=== PATIENT | female | born 1945 | race Caucasian/White ===

== ENCOUNTER 2018-11-26 11:18 | Inpatient (IN) ==
[2018-11-26 11:50] LABS: Basophils # (auto) 0.04 K/uL (0-0.2); Basophils % (auto) 0.4 %; Eosinophils # (auto) 0.48 K/uL (0-0.5); Hemoglobin 15.2 g/dL (12.0-16.0); Immature Granulocytes # (auto) 0.01 K/uL (0.00-0.02); Immature Granulocytes % (auto) 0.1 %; Lymphocytes # (auto) 2.13 K/uL (1.2-3.4); Lymphocytes % (auto) 22.2 %; Mean Corpuscular Hgb Conc 33.8 g/dL (32-36); Mean Corpuscular Volume 96.2 fL (80-100); Mean Platelet Volume 11.7 fL (7.4-10.4); Monocytes # (auto) 0.54 K/uL (0.11-0.59); Monocytes % (auto) 5.6 %; Neutrophils # (auto) 6.39 K/uL (1.4-6.5); Neutrophils % (auto) 66.7 %; Platelet Count 210 K/uL (130-400); RDW Standard Deviation 52.4 fL (36.4-46.3); Red Blood Count 4.68 M/uL (4.2-5.4); White Blood Count 9.59 K/uL (4.8-10.8)
[2018-11-26 11:55] LABS: iSTAT Creatinine 0.7 mg/dl (0.6-1.3); iSTAT Hemoglobin 15.3 g/dl (12.0-16.0); iSTAT Ionized Calcium 1.12 mmol/l (1.12-1.32); iSTAT Potassium 4.5 mEq/L (3.3-5.0)
--- NOTE | 2018-11-26 11:56 | XRay Report ---
XR chest 1V portable HISTORY: 73 years-old Female weakness acute weakness COMPARISON: Chest radiograph 11/11/2013 TECHNIQUE: Portable AP view of the chest FINDINGS: Cardiac silhouette is enlarged, unchanged. Calcification the thoracic aortic arch. Mediastinal contou rs are within normal limits. There is mild right hemidiaphragm elevation. Mild blunting of the costop hrenic angles with subsegmental left basilar opacities. No pneumothorax or overt pulmonary edema. Deg enerative changes of the left shoulder and spine. Reverse right shoulder total joint arthroplasty. Po stoperative changes of the distal right clavicle. IMPRESSION: 1. Cardiomegaly without overt pulmonary edema. 2. Trace pleural effusions. 3. Subsegmental left basilar opacities suggestive of atelectasis or pneumonitis. 4. Unchanged mild right hemidiaphragmatic elevation. The above report was generated using voice recognition software. It may contain grammatical, syntax o r spelling errors. Electronically signed by: Connor Ross M.D. 11/26/2018 11:55 AM
[2018-11-26 12:00] LABS: Partial Thromboplastin Ratio 0.8; Partial Thromboplastin Time 21.2 Seconds (21.0-31.0); Prothrombin Time 10.5 Seconds (9.0-12.0)
[2018-11-26] MEDS ORDERED: OPTIRAY 320 125ml IV PRN (12:03)
[2018-11-26 12:07] LABS: Alanine Aminotransferase 17 U/L (12-78); Albumin Level 3.1 gm/dl (3.4-5.0); BUN Creatinine Ratio 16.3 (10-20); Blood Urea Nitrogen 12 mg/dl (7-18); Calcium 9.4 mg/dl (8.5-10.1); Carbon Dioxide 29 mmol/L (21-32); Chloride 104 mmol/L (98-107); Creatinine Clr Calc Pharmacy 78.7 ml/min; Est GFR (African American) 90.2; Est GFR (Non-African American) 77.8; Glucose 160 mg/dl (70-99); Magnesium 1.6 mg/dl (1.8-2.4); Sodium 140 mmol/L (136-145)
[2018-11-26 12:11] LABS: Albumin Globulin Ratio 0.8 (0.9-2); Alkaline Phosphatase 63 U/L (45-117); Aspartate Aminotransferase 15 U/L (15-37); Bilirubin,Total 0.6 mg/dl (0.2-1); Globulin 3.7 gm/dl (2.5-4.0); Total Protein 6.8 gm/dl (6.4-8.2); Troponin I < 0.015 ng/ml (0-0.045)
--- NOTE | 2018-11-26 12:42 | CT Scan Report ---
HEAD & NECK CTA HISTORY: stroke, L weak TECHNIQUE: Multiaxial CT images of the head were performed both before and after the intravenous admi nistration of contrast to evaluate the major cerebral vessels. Multiaxial CT images of the neck were also performed following the intravenous administration of contrast to evaluate the major cervical ve ssels. Maximum intensity projection images were also obtained. A dose lowering technique was utilized adhering to the principles of ALARA. COMPARISON: Brain MRI 01/08/2016. FINDINGS: There is a 1 cm hypodensity within the right thalamus. This likely represents an acute infarct. Visua lized intracranial internal carotid arteries, distal vertebral arteries, and basilar artery are widel y patent. 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 The major dural venous sinuses are patent. The aortic arch and proximal great vessels are widely patent. There is no significant stenosis, occ lusion, or dissection identified within the bilateral common carotid, internal carotid, or vertebral arteries. A 3 mm nodule within the left lung apex on image 46. There is also a 4 mm nodular density w ithin the left lung apex on image 55. Multinodular thyroid gland. Dominant nodule within the right lo wer pole measures 2.4 cm. Mild calcified plaque within the bilateral carotid bifurcations. IMPRESSION: 1. Acute right thalamic infarct. However, no significant stenosis, occlusion, or aneurysm within the [place]. 2. No significant stenosis, occlusion, or dissection identified within the carotid or vertebral arter ies. 3. A total of 2 subcentimeter nodules within the left lung apex with the largest measuring 4 mm. Plea se refer to the chart below for recommended follow-up. 4. Multinodular thyroid gland. Please refer to below summary of Fleischner criteria recommendations for follow-up of incidental CT n odules (Vishnu Grijalva, Guidelines for management of small pulmonary nodules detected on CT scans: A sta tement from the Fleischner Society, Radiology 237: [phone].) SOLID NODULES Solitary nodule size: <6 mm * Low risk patients: no follow-up needed * high risk patients: optional CT at 12 months Solitary nodule size: 6-8 mm * Low risk patients: follow-up at 6-12 months, then consider further follow-up at 18-24 months * high risk patients: initial follow-up CT at 6-12 months and then at 18-24 months if no change Solitary nodule size: >8 mm * either low or high risk patients - consider follow-up CT at 3 months, and/or CT-PET, and/or biopsy Multiple nodules size: <6 mm * Low risk patients: no routine follow-up * high risk patients: optional CT at 12 months Multiple nodules size: 6-8 mm * Low risk patients: follow-up at 3-6 months, then consider further follow-up at 18-24 months * high risk patients: follow-up at 3-6 months, then at 18-24 months if no change Multiple nodules size: >8 mm * Low risk patients: follow-up at 3-6 months, then consider further follow-up at 18-24 months * high risk patients: follow-up at 3-6 months, then at 18-24 months if no change Note: newly detected indeterminate nodule in persons 35 years of age or older. * Low risk patients: minimal or absent history of smoking and/or other known risk factors * high risk patients: history of smoking or of other known risk factors (e.g. first degree relative with lung cancer, or exposure to asbestos, radon, uranium) * if a nodule up to 8 mm is partly solid or is ground glass further follow-up is required after 24 m onths to exclude possible slow growing adenocarcinoma (DEVIKA) SUBSOLID NODULES Solitary pure ground-glass nodule * nodule size <6 mm - no CT follow-up required * nodule size >=6 mm - follow-up CT at 6-12 months, then every 2 years until 5 years Solitary part-solid nodule * nodule size <6 mm - no CT follow-up required * nodule size >=6 mm - follow-up CT at 3-6 months. If unchanged, and solid component remains <6 mm, then annual follow-up for 5 years Multiple subsolid nodules * nodule size <6 mm - follow-up CT at 3-6 months, consider further follow-up at 2 and 4 years if sta ble * nodule size >=6 mm - follow-up CT at 3-6 months, subsequent management based on the most suspiciou s nodule(s) Electronically signed by: Julio Cesar Nguyen M.D. 11/26/2018 12:41 PM
[2018-11-26] MEDS ORDERED: ASPIRIN 300 MG SUPP PR ONE (12:49)
--- NOTE | 2018-11-26 12:51 | Emergency Department Note ---
Entered by Chepe Amanda acting as a scribe for Joselito Colin M.D. History of Present Illness General Chief complaint: Stroke/CVA Symptoms Time Seen by Provider: 11/26/18 11:23 Source: patient, EMS and old records reviewed History of Present Illness Onset (ago): day(s) (yesterday at 18:00) Location: left (face, upper and lower extremities) Pain Consistency: + other (persistent) Quality: + other (left-sided weakness) Associated symptoms: + nausea/vomiting and + other (left facial droop; patient denies pain) The patient is a 72 year old female who presents to the Emergency Room from [facility] with persistent left-sided weakness beginning yesterday at 18:00. EMS reports that the patient had left-sided facial droop and her left side was f laccid. They state that the patient produced yellow vomit without blood prior to arrival. The patient denies any pain. Review of records shows that the patient takes aspirin and Plavix. Home Medications Home Medications Medication Instructions Recorded Confirmed Type acetaminophen 500 mg PO Q6H PRN 11/26/18 11/26/18 History acetaminophen [Tylenol Extra 500 mg PO QID 11/26/18 11/26/18 History Strength] allopurinol 200 mg PO DAILY 11/26/18 11/26/18 History ascorbic acid (vitamin C) [Vitamin 1,000 mg PO DAILY 11/26/18 11/26/18 History C] aspirin 162 mg PO DAILY 11/26/18 11/26/18 History bisacodyl [Dulcolax (bisacodyl)] 10 mg MA DAILY PRN 11/26/18 11/26/18 History carboxymethylcellulose sodium 1 drp OPHTHALMIC (EYE) TID 11/26/18 11/26/18 History [Refresh Celluvisc] carvedilol [Coreg] 3.125 mg PO BID 11/26/18 11/26/18 History cholecalciferol (vitamin D3) 1,000 unit PO DAILY 11/26/18 11/26/18 History [Vitamin D3] citalopram 20 mg PO DAILY 11/26/18 11/26/18 History clopidogrel [Plavix] 75 mg PO DAILY 11/26/18 11/26/18 History dextrose [Glucose Gel] 1 dose PO DIRECTED PRN 11/26/18 11/26/18 History folic acid 1 mg PO DAILY 11/26/18 11/26/18 History glucagon (human recombinant) 1 dose SUBCUT DIRECTED 11/26/18 11/26/18 History [Glucagon Emergency Kit (human)] insulin aspart U-100 [Novolog 20 unit SUBCUT QPM 11/26/18 11/26/18 History U-100 Insulin aspart] insulin aspart U-100 [Novolog 26 unit SUBCUT BIDM 11/26/18 11/26/18 History U-100 Insulin aspart] insulin glargine [Lantus U-100 50 unit SUBCUT BID 11/26/18 11/26/18 History Insulin] lisinopril 20 mg PO DAILY 11/26/18 11/26/18 History magnesium hydroxide [Milk of 30 ml PO DAILY PRN 11/26/18 11/26/18 History Magnesia] menthol-zinc oxide [Calmoseptine] 1 applic TOPICAL DAILY PRN 11/26/18 11/26/18 History menthol-zinc oxide [Calmoseptine] 1 applic TOPICAL TID 11/26/18 11/26/18 History methenamine hippurate 1 g PO BID 11/26/18 11/26/18 History multivitamin 1 tab PO DAILY 11/26/18 11/26/18 History pantoprazole [Protonix] 40 mg PO DAILY 11/26/18 11/26/18 History promethazine 25 mg PO Q6H PRN 11/26/18 11/26/18 History sennosides-docusate sodium 2 tab PO BID 11/26/18 11/26/18 History [Senna-S] simvastatin 40 mg PO HS 11/26/18 11/26/18 History sodium phosphates [Fleet Enema] 118 ml MA DAILY PRN 11/26/18 11/26/18 History Allergies Allergy/AdvReac Type Severity Reaction Status Date / Time etodolac Allergy Unknown . Verified 11/26/18 12:01 tolmetin Allergy Unknown . Verified 11/26/18 12:01 adhesive Allergy Unknown Unverified 11/26/18 12:01 ciprofloxacin [From Cipro] Allergy Unknown Unverified 11/26/18 12:01 iodine Allergy Unknown Unverified 11/26/18 12:01 lodine Allergy Unknown Uncoded 11/26/18 12:01 Past Med/Surg History Medical History HLD (hyperlipidemia) (Chronic) Dementia (Chronic) Depression (Chronic) CAD (coronary artery disease) (Chronic) PVD (peripheral vascular disease) (Chronic) IBS (irritable bowel syndrome) (Chronic) Diabetes (Chronic) Hypertension (Chronic) Surgical History History of partial colectomy (Chronic) History of tonsillectomy and adenoidectomy (Chronic) History of cholecystectomy (Chronic) History of shoulder surgery (Chronic) History of percutaneous coronary intervention (Chronic) Family History Other Family history non-contributory Social History Communication Ability: Impaired Communication Ability Comment: h/o dementia 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 and A total of 10 systems reviewed and were otherwise negative Physical Exam Vital Signs Vital Signs - 24 hr 11/26/18 11:42 11/26/18 12:11 11/26/18 12:14 Temperature 37.0 C Temperature Source Oral Sepsis Recent Fever Within 48 Hours No Sepsis New/Unexplained Change in Mental Status No Sepsis Action Taken by Nursing No Action Required Pulse Rate 77 Pulse Rate [Apical] 80 Respiratory Rate 18 18 Respiratory Depth Normal Blood Pressure 122/52 L Blood Pressure [Right Arm] 143/61 H Blood Pressure Mean 75 Blood Pressure Mean [Right Arm] 88 Blood Pressure Position [Right Arm] Pulse Oximetry 97 95 98 Oxygen Delivery Method Room Air Room Air Room Air 11/26/18 13:32 11/26/18 13:38 11/26/18 14:33 Temperature Temperature Source Sepsis Recent Fever Within 48 Hours Sepsis New/Unexplained Change in Mental Status Sepsis Action Taken by Nursing Pulse Rate 78 Pulse Rate [Apical] 69 Respiratory Rate 20 18 Respiratory Depth Blood Pressure 104/67 Blood Pressure [Right Arm] 127/58 L Blood Pressure Mean Blood Pressure Mean [Right Arm] 81 Blood Pressure Position [Right Arm] Pulse Oximetry 100 96 Oxygen Delivery Method Room Air Room Air Room Air 11/26/18 16:00 11/26/18 16:28 Temperature 36.7 C Temperature Source Oral Sepsis Recent Fever Within 48 Hours Sepsis New/Unexplained Change in Mental Status Sepsis Action Taken by Nursing Pulse Rate 71 Pulse Rate [Apical] 88 Respiratory Rate 16 Respiratory Depth Blood Pressure Blood Pressure [Right Arm] 143/77 H Blood Pressure Mean Blood Pressure Mean [Right Arm] 99 Blood Pressure Position [Right Arm] Lying Pulse Oximetry 94 Oxygen Delivery Method Room Air GENERAL: Awake, alert, in no distress HENT: Normocephalic, atraumatic. Oropharynx unremarkable. EYES: Normal conjunctiva. Sclera non-icteric. NECK: Supple. No nuchal rigidity. RESPIRATORY: No wheezes. Normal respiratory effort. CARDIAC: Normal rate. Normal rhythm. Extremities warm and well perfused. GI: Soft, non-distended. No tenderness to palpation. No rebound or guarding. RECTAL: Deferred. MUSCULOSKELETAL: Atraumatic. Chest examination reveals no tenderness. LOWER EXTREMITIES: Calves are equal size bilaterally and non-tender. No edema NEURO: Left-sided facial droop. Slurred speech. Right gaze preference but is able to overcome midline. Minimal effort in the left upper and left lower extremities. Denies sensation changes. SKIN: Warm and dry. No rash or jaundice noted. Course 1124: Past medical records reviewed. The patient was evaluated in room C4, and a complete history and physical examination were performed. 1257: I consulted Sintia Youngblood PA-C: [facility] Hospitalist with Dr. Ann. The patient will be reevaluated for hospitalization. Consultations Consultation #1: I consulted Sintia Youngblood PA-C: [facility] Hospitalist with Dr. Ann. The patient will be reevaluated for hospitalization. Time: 12:57 Administered Medications Dextrose/Sodium Chloride (D5w And 1/2nss) 1,000 mls @ 50 mls/hr IV .Q20H DREW Stop: 12/26/18 15:01 Last Admin: 11/26/18 16:11 Dose: 50 mls/hr Documented by: [id number] Magnesium Sulfate/Dextrose (Magnesium Sulfate / D5w) 1 gm in 100 mls @ 100 mls/hr IV Q1H DREW Stop: 11/26/18 18:29 Last Admin: 11/26/18 16:06 Dose: 100 mls/hr Documented by: [id number] Ceftriaxone Sodium 1,000 mg/ (Dextrose) 50 mls @ 100 mls/hr IV Q24H DREW; P rotocol Stop: 12/01/18 15:59 Last Infusion: 11/26/18 17:59 Dose: 0 mls/hr Documented by: [id number] Admin: 11/26/18 17:22 Dose: 100 mls/hr Documented by: [id number] Discontinued Medications Aspirin (Aspirin) 300 mg MA ONE ONE Stop: 11/26/18 12:50 Last Admin: 11/26/18 13:20 Dose: 300 mg Documented by: [id number] Ioversol (Optiray 320 125ml) 119 ml IV ONCE PRN PRN Reason: Interaction Checking Stop: 11/30/18 12:02 Last Admin: 11/26/18 12:09 Dose: 119 ml Documented by: [id number] Medical Decision Making Differential Diagnosis Differential diagnosis: Etiologies such as metabolic, infection, hypo/hyperglycemia, electrolyte abnormalities, cardiac sources, intracerebral event, toxicologic, neurologic, as well as others were entertained. Medical Records Attestation: I reviewed the patient's medical records. Home Medications Current Medication List: was personally reviewed by me Laboratory Data Attestation: I reviewed the patient's lab results. Result diagrams: 11/26/18 11:40 11/26/18 11:40 Lab Results 11/26/18 11/26/18 11/26/18 Range/Units 11:25 11:40 11:40 WBC 9.59 (4.8-10.8) K/uL RBC 4.68 (4.2-5.4) M/uL Hgb 15.2 (12.0-16.0) g/dL POC Hgb (12.0-16.0) g/dl Hct 45.0 (37-47) % POC Hct (37-47) % MCV 96.2 (80-100) fL MCH 32.5 (25-34) pg MCHC 33.8 (32-36) g/dL RDW Std Deviation 52.4 H (36.4-46.3) fL RDW Coeff of Dougie 15.0 H (11.5-14.5) % Plt Count 210 (130-400) K/uL MPV 11.7 H (7.4-10.4) fL Immature Gran % (Auto) 0.1 % Neut % (Auto) 66.7 % Lymph % (Auto) 22.2 % Wheeler % (Auto) 5.6 % Eos % (Auto) 5.0 % Baso % (Auto) 0.4 % Immature Gran # (Auto) 0.01 (0.00-0.02) K/uL Neut # (Auto) 6.39 (1.4-6.5) K/uL Lymph # (Auto) 2.13 (1.2-3.4) K/uL Wheeler # (Auto) 0.54 (0.11-0.59) K/uL Eos # (Auto) 0.48 (0-0.5) K/uL Baso # (Auto) 0.04 (0-0.2) K/uL PT 10.5 (9.0-12.0) Seconds INR 1.0 (0.9-1.1) APTT 21.2 (21.0-31.0) Seconds PTT Ratio 0.8 POC Sodium (135-144) mEq/L Sodium (136-145) mmol/L POC Potassium (3.3-5.0) mEq/L Potassium (3.5-5.1) mmol/L POC Chloride (101-112) mEq/L Chloride (98-107) mmol/L Carbon Dioxide (21-32) mmol/L POC Total CO2 (24-31) mEq/l Anion Gap (3-11) POC Anion Gap (16-25) mmol/L POC BUN (7-18) mg/dl BUN (7-18) mg/dl Creatinine (0.6-1.2) mg/dl POC Creatinine (0.6-1.3) mg/dl Est Cr Clr Drug Dosing ml/min Est GFR ( Amer) Est GFR (Non-Af Amer) BUN/Creatinine Ratio (10-20) Glucose (70-99) mg/dl POC Glucose 159 H (70-99) POC Glucose (other) (70-99) mg/dl Calcium (8.5-10.1) mg/dl POC Ioniz Calcium Tiago (1.12-1.32) mmol/l Magnesium (1.8-2.4) mg/dl Total Bilirubin (0.2-1) mg/dl AST (15-37) U/L ALT (12-78) U/L Alkaline Phosphatase (45-117) U/L Troponin I (0-0.045) ng/ml Total Protein (6.4-8.2) gm/dl Albumin (3.4-5.0) gm/dl Globulin (2.5-4.0) gm/dl Albumin/Globulin Ratio (0.9-2) Urine Color Urine Appearance (Clear) Urine pH (4.5-7.5) Ur Specific [place] (1.000-1.030) Urine Protein (Negative) Urine Glucose (UA) (Negative) Urine Ketones (Negative) Urine Blood (Negative) Urine Nitrite (Negative) Urine Bilirubin (Negative) Urine Urobilinogen (Negative) Ur Leukocyte Esterase (Negative) Urine WBC (Auto) (0-5) /hpf Urine RBC (Auto) (0-4) /hpf U Hyaline Cast (Auto) (0-5) /lpf U Epithel Cells (Auto) (0-5) /lpf Urine Bacteria (Auto) (Negative) Blood Type Antibody Screen 11/26/18 11/26/18 11/26/18 Range/Units 11:40 11:43 12:18 WBC (4.8-10.8) K/uL RBC (4.2-5.4) M/uL Hgb (12.0-16.0) g/dL POC Hgb 15.3 (12.0-16.0) g/dl Hct (37-47) % POC Hct 45 (37-47) % MCV (80-100) fL MCH (25-34) pg MCHC (32-36) g/dL RDW Std Deviation (36.4-46.3) fL RDW Coeff of Dougie (11.5-14.5) % Plt Count (130-400) K/uL MPV (7.4-10.4) fL Immature Gran % (Auto) % Neut % (Auto) % Lymph % (Auto) % Wheeler % (Auto) % Eos % (Auto) % Baso % (Auto) % Immature Gran # (Auto) (0.00-0.02) K/uL Neut # (Auto) (1.4-6.5) K/uL Lymph # (Auto) (1.2-3.4) K/uL Wheeler # (Auto) (0.11-0.59) K/uL Eos # (Auto) (0-0.5) K/uL Baso # (Auto) (0-0.2) K/uL PT (9.0-12.0) Seconds INR (0.9-1.1) APTT (21.0-31.0) Seconds PTT Ratio POC Sodium 138 (135-144) mEq/L Sodium 140 (136-145) mmol/L POC Potassium 4.5 (3.3-5.0) mEq/L Potassium 4.0 (3.5-5.1) mmol/L POC Chloride 101 (101-112) mEq/L Chloride 104 (98-107) mmol/L Carbon Dioxide 29 (21-32) mmol/L POC Total CO2 31 (24-31) mEq/l Anion Gap 7.0 (3-11) POC Anion Gap 12.0 L (16-25) mmol/L POC BUN 15 (7-18) mg/dl BUN 12 (7-18) mg/dl Creatinine 0.76 (0.6-1.2) mg/dl POC Creatinine 0.7 (0.6-1.3) mg/dl Est Cr Clr Drug Dosing 78.7 ml/min Est GFR ( Amer) 90.2 Est GFR (Non-Af Amer) 77.8 BUN/Creatinine Ratio 16.3 (10-20) Glucose 160 H (70-99) mg/dl POC Glucose (70-99) POC Glucose (other) 169 H (70-99) mg/dl Calcium 9.4 (8.5-10.1) mg/dl POC Ioniz Calcium Tiago 1.12 (1.12-1.32) mmol/l Magnesium 1.6 L (1.8-2.4) mg/dl Total Bilirubin 0.6 (0.2-1) mg/dl AST 15 (15-37) U/L ALT 17 (12-78) U/L Alkaline Phosphatase 63 (45-117) U/L Troponin I < 0.015 (0-0.045) ng/ml Total Protein 6.8 (6.4-8.2) gm/dl Albumin 3.1 L (3.4-5.0) gm/dl Globulin 3.7 (2.5-4.0) gm/dl Albumin/Globulin Ratio 0.8 L (0.9-2) Urine Color Urine Appearance (Clear) Urine pH (4.5-7.5) Ur Specific [place] (1.000-1.030) Urine Protein (Negative) Urine Glucose (UA) (Negative) Urine Ketones (Negative) Urine Blood (Negative) Urine Nitrite (Negative) Urine Bilirubin (Negative) Urine Urobilinogen (Negative) Ur Leukocyte Esterase (Negative) Urine WBC (Auto) (0-5) /hpf Urine RBC (Auto) (0-4) /hpf U Hyaline Cast (Auto) (0-5) /lpf U Epithel Cells (Auto) (0-5) /lpf Urine Bacteria (Auto) (Negative) Blood Type A Positive Antibody Screen NEGATIVE 11/26/18 11/26/18 Range/Units 13:35 15:52 WBC (4.8-10.8) K/uL RBC (4.2-5.4) M/uL Hgb (12.0-16.0) g/dL POC Hgb (12.0-16.0) g/dl Hct (37-47) % POC Hct (37-47) % MCV (80-100) fL MCH (25-34) pg MCHC (32-36) g/dL RDW Std Deviation (36.4-46.3) fL RDW Coeff of Dougie (11.5-14.5) % Plt Count (130-400) K/uL MPV (7.4-10.4) fL Immature Gran % (Auto) % Neut % (Auto) % Lymph % (Auto) % Wheeler % (Auto) % Eos % (Auto) % Baso % (Auto) % Immature Gran # (Auto) (0.00-0.02) K/uL Neut # (Auto) (1.4-6.5) K/uL Lymph # (Auto) (1.2-3.4) K/uL Wheeler # (Auto) (0.11-0.59) K/uL Eos # (Auto) (0-0.5) K/uL Baso # (Auto) (0-0.2) K/uL PT (9.0-12.0) Seconds INR (0.9-1.1) APTT (21.0-31.0) Seconds PTT Ratio POC Sodium (135-144) mEq/L Sodium (136-145) mmol/L POC Potassium (3.3-5.0) mEq/L Potassium (3.5-5.1) mmol/L POC Chloride (101-112) mEq/L Chloride (98-107) mmol/L Carbon Dioxide (21-32) mmol/L POC Total CO2 (24-31) mEq/l Anion Gap (3-11) POC Anion Gap (16-25) mmol/L POC BUN (7-18) mg/dl BUN (7-18) mg/dl Creatinine (0.6-1.2) mg/dl POC Creatinine (0.6-1.3) mg/dl Est Cr Clr Drug Dosing ml/min Est GFR ( Amer) Est GFR (Non-Af Amer) BUN/Creatinine Ratio (10-20) Glucose (70-99) mg/dl POC Glucose 162 H (70-99) POC Glucose (other) (70-99) mg/dl Calcium (8.5-10.1) mg/dl POC Ioniz Calcium Tiago (1.12-1.32) mmol/l Magnesium (1.8-2.4) mg/dl Total Bilirubin (0.2-1) mg/dl AST (15-37) U/L ALT (12-78) U/L Alkaline Phosphatase (45-117) U/L Troponin I (0-0.045) ng/ml Total Protein (6.4-8.2) gm/dl Albumin (3.4-5.0) gm/dl Globulin (2.5-4.0) gm/dl Albumin/Globulin Ratio (0.9-2) Urine Color Yellow Urine Appearance Cloudy H (Clear) Urine pH 6.0 (4.5-7.5) Ur Specific [place] > 1.045 H (1.000-1.030) Urine Protein Negative (Negative) Urine Glucose (UA) Negative (Negative) Urine Ketones Trace H (Negative) Urine Blood 1+ H (Negative) Urine Nitrite Positive H (Negative) Urine Bilirubin Negative (Negative) Urine Urobilinogen Negative (Negative) Ur Leukocyte Esterase 2+ H (Negative) Urine WBC (Auto) >30 H (0-5) /hpf Urine RBC (Auto) 0-4 (0-4) /hpf U Hyaline Cast (Auto) 1-5 (0-5) /lpf U Epithel Cells (Auto) >30 H (0-5) /lpf Urine Bacteria (Auto) 4+ H (Negative) Blood Type Antibody Screen Imaging Data Radiologist's Impression: Radiology results as stated below per my review and the radiologist's interpretation: XR chest 1V portable HISTORY: 73 years-old Female weakness acute weakness COMPARISON: Chest radiograph 11/11/2013 TECHNIQUE: Portable AP view of the chest FINDINGS: Cardiac silhouette is enlarged, unchanged. Calcification the thoracic aortic arch. Mediastinal contours are within normal limits. There is mild right hemidiaphragm elevation. Mild blunting of the costophrenic angles with subsegmental left basilar opacities. No pneumothorax or overt pulmonary edema. Degenerative changes of the left shoulder and spine. Reverse right shoulder total joint arthroplasty. Postoperative changes of the distal right clavicle. IMPRESSION: 1. Cardiomegaly without overt pulmonary edema. 2. Trace pleural effusions. 3. Subsegmental left basilar opacities suggestive of atelectasis or pneumonitis. 4. Unchanged mild right hemidiaphragmatic elevation. The above report was generated using voice recognition software. It may contain grammatical, syntax or spelling errors. Electronically signed by: Connor Ross M.D. 11/26/2018 11:55 AM HEAD & NECK CTA HISTORY: stroke, L weak TECHNIQUE: Multiaxial CT images of the head were performed both before and after the intravenous administration of contrast to evaluate the major cerebral vessels. Multiaxial CT images of the neck were also performed following the intravenous administration of contrast to evaluate the major cervical vessels. Maximum intensity projection images were also obtained. A dose lowering technique was utilized adhering to the principles of ALARA. COMPARISON: Brain MRI 01/08/2016. FINDINGS: There is a 1 cm hypodensity within the right thalamus. This likely represents an acute infarct. Visualized intracranial internal carotid arteries, distal vertebral arteries, and basilar artery are widely patent. There is no si gnificant stenosis, occlusion, or aneurysm seen within the bilateral ACAs, MCAs, or yard worker. The major dural venous sinuses are patent. The aortic arch and proximal great vessels are widely patent. There is no significant stenosis, occlusion, or dissection identified within the bilateral common carotid, internal carotid, or vertebral arteries. A 3 mm nodule within the left lung apex on image 46. There is also a 4 mm nodular density within the left lung apex on image 55. Multinodular thyroid gland. Dominant nodule within the right lower pole measures 2.4 cm. Mild calcified plaque within the bilateral carotid bifurcations. IMPRESSION: 1. Acute right thalamic infarct. However, no significant stenosis, occlusion, or aneurysm within the pilot point of [place]. 2. No significant stenosis, occlusion, or dissection identified within the carotid or vertebral arteries. 3. A total of 2 subcentimeter nodules within the left lung apex with the largest measuring 4 mm. Please refer to the chart below for recommended follow-up. 4. Multinodular thyroid gland. Please refer to below summary of Fleischner criteria recommendations for follow- up of incidental CT nodules (Vishnu Grijalva, Guidelines for management of small pulmonary nodules detected on CT scans: A statement from the Fleischner Society, Radiology 237: [phone].) SOLID NODULES Solitary nodule size: <6 mm * Low risk patients: no follow-up needed * high risk patients: optional CT at 12 months Solitary nodule size: 6-8 mm * Low risk patients: follow-up at 6-12 months, then consider further follow-up at 18-24 months * high risk patients: initial follow-up CT at 6-12 months and then at 18-24 months if no change Solitary nodule size: >8 mm * either low or high risk patients - consider follow-up CT at 3 months, and/or CT-PET, and/or biopsy Multiple nodules size: <6 mm * Low risk patients: no routine follow-up * high risk patients: optional CT at 12 months Multiple nodules size: 6-8 mm * Low risk patients: follow-up at 3-6 months, then consider further follow-up at 18-24 months * high risk patients: follow-up at 3-6 months, then at 18-24 months if no change Multiple nodules size: >8 mm * Low risk patients: follow-up at 3-6 months, then consider further follow-up at 18-24 months * high risk patients: follow-up at 3-6 months, then at 18-24 months if no change Note: newly detected indeterminate nodule in persons 35 years of age or older. * Low risk patients: minimal or absent history of smoking and/or other known risk factors * high risk patients: history of smoking or of other known risk factors (e.g. first degree relative with lung cancer, or exposure to asbestos, radon, uranium) * if a nodule up to 8 mm is partly solid or is ground glass further follow-up is required after 24 months to exclude possible slow growing adenocarcinoma (DEVIKA) SUBSOLID NODULES Solitary pure ground-glass nodule * nodule size <6 mm - no CT follow-up required * nodule size >=6 mm - follow-up CT at 6-12 months, then every 2 years until 5 years Solitary part-solid nodule * nodule size <6 mm - no CT follow-up required * nodule size >=6 mm - follow-up CT at 3-6 months. If unchanged, and solid c omponent remains <6 mm, then annual follow-up for 5 years Multiple subsolid nodules * nodule size <6 mm - follow-up CT at 3-6 months, consider further follow-up at 2 and 4 years if stable * nodule size >=6 mm - follow-up CT at 3-6 months, subsequent management based on the most suspicious nodule(s) Electronically signed by: Julio Cesar Nguyen M.D. 11/26/2018 12:41 PM ECG Data Attestation: I personally reviewed and interpreted this ECG as follows: Indication: weakness Rate (beats per minute): 76 Findings: + other (significant artifact present); no PVC, no ST depression and no ST elevation Blood Pressure Blood Pressure Findings: Elevated blood pressure Blood Pressure Disposition: further management by hospitalist ART Narrative 73-year-old female presenting with EMS with last known well reported around 6 PM yesterday with a dense left-sided deficits by EMS report that her new. On aspirin and Plavix per nursing facility records. Outside time window for TPA. Patient herself denies complaints and has little effort against gravity on the left upper and lower extremities with left facial droop. Denies numbness. Right gaze preference that can be overcome. CT and CT angiogram of the head and neck were completed as part of a stroke evaluation. Metabolic workup was completed as well. Chest x-ray shows questionable left basilar opacity of atelectasis versus pneumonitis. She not hypoxic here and has no acute evidence of leukocytosis and no fever reported. Question aspiration with vomiting earlier. Will hold antibioitcs at this time. Negative troponin and electrolytes without significant derangement. CT s do show an acute right thalamic infarct. There are some left lung nodules noted as well as thyroid nodules. No significant vascular occlusion is noted of the large vessels. Given full dose aspirin and contacted the hospitalist for admission for further evaluation given stroke and significant new deficits. Patient made aware and daughter updated at bedside. Impression & Plan Acute cerebrovascular accident (CVA) Discharge Plan Visit Data *Final* Discharge Date/Time: 11/26/18 14:33 Chief Complaint: Stroke/CVA Symptoms ED Provider: Joselito Colin Discharge Problem: Acute cerebrovascular accident (CVA) Patient Disposition: Admitted As Inpatient Discharge Instructions Interventions: ED Discharge Assessment Last Done: 11/26/18 14:33 The scribe's documentation has been prepared under my direction and personally reviewed by me in its entirety. I confirm that the note above accurately reflects all work, treatment, procedures, and medical decision making performed by me.
--- NOTE | 2018-11-26 13:47 | History & Physical Report ---
Date of Service November 26, 2018 Assessment & Plan (1) Acute cerebrovascular accident (CVA): This is a 73 yr old F with significant PMH of CAD hx of stents in past, T2DM, HTN, HLD, Dementia, Gout, monoclonal gammopathy, depression, fibromyalgia who presents to [facility] ED secondary to L sided weakness x 1 day. CTA Head/Neck confirm Acute R Thalamic infarct and patient is out of TPA window given initial symptoms were reported at 6pm night prior Continues with mild L facial drop and L sided weakness Patient will be admitted for further CVA work up -admit to telemetry -Place neuro consult -pt failed dysphagia screen therefore pt will remain NPO -consult PT/OT/ST -pt on ASA, Plavix, statin prior to admission -hold all PO meds given NPO status -echocardiogram -obtain MRI w/o contrast of brain -neuro checks per protocol -D5 1/2 NS 50cc/hr scondary to NPO status (2) Hypomagnesemia: -replete with 1g mag sulfate x 3 -recheck mag in a.m. (3) Diabetes: -A1C on 11/15/18 7.3 -it was reported per daughter of recent hx of hypoglycemia while at [facility] -given NPO status will reduce dose of Lantus/Novolog per protocol and consult glycemic pharmacist to assist with management -home regimen is lantus 50 units SQ BID along with Novolg 26 units breakfast/lunch, 20 units at dinner (4) Hypertension: -blood pressure controlled currently -hold lisinopril and coreg due to being NPO -will allow for permissive HTN give ACUTE CVA initial 24-48hr -monitor (5) CAD (coronary artery disease): -hx of prior stenting in place -on ASA, Statin, Plavix, BB and JERRI as outpatient -no chest pain/sob, troponin < 0.015 (6) Dementia: -w/o agitation, per daughter dx with vascular dementia at [facility] 07/2018 prior to residing at [facility] (7) HLD (hyperlipidemia): -on statin as outpatient (8) Depression: -on citalopram, flat affected (9) Lung nodule < 6cm on CT: -Per Fleischner criteria -Multiple nodules size: <6 mm * Low risk patients: no routine follow-up * high risk patients: optional CT at 12 months (10) DVT prophylaxis: -SCDS if b/l doppler negative per attending Disposition: likely d/c back [facility] upon discharge, case management consulted Follow up: PCP Dr. Miguel/Rosangela Rodgers PA-C upon discharge Patient was seen and examined in collaboration with Dr. Ann, please see addendum Starting 11/27/18 patient will be under the care of Dr. Devi History of Present Illness Chief Complaint: L sided weakness x 1 day. Primary Care Provider: Kyler Miguel This is a 73 yr old F with significant PMH of CAD hx of stents in past, T2DM, HTN, HLD, Dementia, Gout, monoclonal gammopathy, depression, fibromyalgia who presents to [facility] ED secondary to L sided weakness x 1 day. Patient resides at [facility] and daughter is at bedside. Daughter states she has been a resident at [facility] since Jul 2018 after being hospitalized at [facility]. Prior to hospitalization she was driving and caring for own self but did have early signs of dementia. She was deemed incompetent and referred to [facility] for [facility]. While she was receiving therapy at [facility] she remained bed bound per daughter but was able to feed her self and read magazines. Unfortunately it was noted by family last evening she was exhibiting L sided weakness and this was reported to nursing staff. Symptoms continued this a.m. and was evaluated by Rosangela Rodgers PA-C where she was noted to have L sided facial droop, difficulty drinking from straw and gripping on left side. Given change in condition she was referred to ED. Patient is able to state her name but otherwise not oriented. Denies Pain. ROS is unreliable/unobtainable given current state. Allergies Allergy/AdvReac Type Severity Reaction Status Date / Time etodolac Allergy Unknown . Verified 11/26/18 12:01 tolmetin Allergy Unknown . Verified 11/26/18 12:01 adhesive Allergy Unknown Unverified 11/26/18 12:01 ciprofloxacin [From Cipro] Allergy Unknown Unverified 11/26/18 12:01 iodine Allergy Unknown Unverified 11/26/18 12:01 lodine Allergy Unknown Uncoded 11/26/18 12:01 Home Medications Home Medications Medication Instructions Recorded Confirmed Type acetaminophen 500 mg PO Q6H PRN 11/26/18 11/26/18 History acetaminophen [Tylenol Extra 500 mg PO QID 11/26/18 11/26/18 History Strength] allopurinol 200 mg PO DAILY 11/26/18 11/26/18 History ascorbic acid (vitamin C) [Vitamin 1,000 mg PO DAILY 11/26/18 11/26/18 History C] aspirin 162 mg PO DAILY 11/26/18 11/26/18 History bisacodyl [Dulcolax (bisacodyl)] 10 mg MS DAILY PRN 11/26/18 11/26/18 History carboxymethylcellulose sodium 1 drp OPHTHALMIC (EYE) TID 11/26/18 11/26/18 History [Refresh Celluvisc] carvedilol [Coreg] 3.125 mg PO BID 11/26/18 11/26/18 History cholecalciferol (vitamin D3) 1,000 unit PO DAILY 11/26/18 11/26/18 History [Vitamin D3] citalopram 20 mg PO DAILY 11/26/18 11/26/18 History clopidogrel [Plavix] 75 mg PO DAILY 11/26/18 11/26/18 History dextrose [Glucose Gel] 1 dose PO DIRECTED PRN 11/26/18 11/26/18 History folic acid 1 mg PO DAILY 11/26/18 11/26/18 History glucagon (human recombinant) 1 dose SUBCUT DIRECTED 11/26/18 11/26/18 History [Glucagon Emergency Kit (human)] insulin aspart U-100 [Novolog 20 unit SUBCUT QPM 11/26/18 11/26/18 History U-100 Insulin aspart] insulin aspart U-100 [Novolog 26 unit SUBCUT BIDM 11/26/18 11/26/18 History U-100 Insulin aspart] insulin glargine [Lantus U-100 50 unit SUBCUT BID 11/26/18 11/26/18 History Insulin] lisinopril 20 mg PO DAILY 11/26/18 11/26/18 History magnesium hydroxide [Milk of 30 ml PO DAILY PRN 11/26/18 11/26/18 History Magnesia] menthol-zinc oxide [Calmoseptine] 1 applic TOPICAL DAILY PRN 11/26/18 11/26/18 History menthol-zinc oxide [Calmoseptine] 1 applic TOPICAL TID 11/26/18 11/26/18 History methenamine hippurate 1 g PO BID 11/26/18 11/26/18 History multivitamin 1 tab PO DAILY 11/26/18 11/26/18 History pantoprazole [Protonix] 40 mg PO DAILY 11/26/18 11/26/18 History promethazine 25 mg PO Q6H PRN 11/26/18 11/26/18 History sennosides-docusate sodium 2 tab PO BID 11/26/18 11/26/18 History [Senna-S] simvastatin 40 mg PO HS 11/26/18 11/26/18 History sodium phosphates [Fleet Enema] 118 ml MS DAILY PRN 11/26/18 11/26/18 History Past Med/Surg History Medical History HLD (hyperlipidemia) (Chronic) Dementia (Chronic) Depression (Chronic) CAD (coronary artery disease) (Chronic) PVD (peripheral vascular disease) (Chronic) IBS (irritable bowel syndrome) (Chronic) Diabetes (Chronic) Hypertension (Chronic) Surgical History History of partial colectomy (Chronic) History of tonsillectomy and adenoidectomy (Chronic) History of cholecystectomy (Chronic) History of shoulder surgery (Chronic) History of percutaneous coronary intervention (Chronic) Family History Other Family history non-contributory Social History Communication Ability: Impaired Communication Ability Comment: h/o dementia Hand Zipper Trimmer Required: No Beliefs That Will Affect Care: Taoist Current Living Situation: [facility] Current Living Situation Comment: [facility] other: Bed Bound Feels Safe at Home: Yes Safety Concerns: Feels Safe At This Time Smoking Status: Former smoker Hx Alcohol Use: No Hx Substance Use: No Review of Systems Unobtainable due to cognitive status Physical Exam Vital Signs (Past 24 Hours): Last Vital Signs Temp 37.0 C 11/26/18 11:42 Pulse 69 11/26/18 13:38 Resp 20 11/26/18 13:38 BP 127/58 L 11/26/18 13:38 Pulse Ox 100 11/26/18 13:38 Constitutional: WD/WN, vitals as above + morbidly obese and cooperative Eyes: PERRL, conjunctivae normal, anicteric sclerae ENMT: external ear and nose normal, oropharynx normal Throat: uvula midline L facial droop Neck: trachea midline, no thyromegaly Respiratory: normal respiratory effort, lungs clear to auscultation Cardiovascular: RRR, no murmur, no edema Gastrointestinal (Abdomen): normal bowel sounds, soft, nontender, no hepatosplenomegaly Musculoskeletal: Extremities: + limited ROM of upper extremity (able to abduct /adduct at shoulder but weakness 3/5 with 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) Left and + limited ROM of lower extremity (LLE able to dorsi/plantarflex but minimal flexion/ext hip) Left Skin: no rashes, warm and dry Neurologic: awake and + confused Speech / Cognition: + abnormal speech Cranial Nerves: tongue midline and able to rotate head bilaterally L facial droop Psychiatric: Orientation: alert and oriented to person (self only) Affect: + depressed affect Results & Data Laboratory Results Short CBC 11/26/18 Range/Units 11:40 WBC 9.59 (4.8-10.8) K/uL Hgb 15.2 (12.0-16.0) g/dL Hct 45.0 (37-47) % Plt Count 210 (130-400) K/uL BMP 11/26/18 11:40 Sodium 140 Potassium 4.0 Chloride 104 Carbon Dioxide 29 BUN 12 Creatinine 0.76 Glucose 160 H Calcium 9.4 Cardiac Enzymes 11/26/18 Range/Units 11:40 Troponin I < 0.015 (0-0.045) ng/ml Liver Function 11/26/18 Range/Units 11:40 Total Bilirubin 0.6 (0.2-1) mg/dl AST 15 (15-37) U/L ALT 17 (12-78) U/L Alkaline Phosphatase 63 (45-117) U/L Albumin 3.1 L (3.4-5.0) gm/dl Diagnostic Findings Head/Neck CTA: IMPRESSION: 1. Acute right thalamic infarct. However, no significant stenosis, occlusion, or aneurysm within the [place]. 2. No significant stenosis, occlusion, or dissection identified within the carotid or vertebral arteries. 3. A total of 2 subcentimeter nodules within the left lung apex with the largest measuring 4 mm. Please refer to the chart below for recommended follow-up. 4. Multinodular thyroid gland. Multiple nodules size: <6 mm * Low risk patients: no routine follow-up * high risk patients: optional CT at 12 months CXR: IMPRESSION: 1. Cardiomegaly without overt pulmonary edema. 2. Trace pleural effusions. 3. Subsegmental left basilar opacities suggestive of atelectasis or pneumonitis. 4. Unchanged mild right hemidiaphragmatic elevation. Medications Administered Ioversol (Optiray 320 125ml) 119 ml IV ONCE PRN PRN Reason: Interaction Checking Stop: 11/30/18 12:02 Last Admin: 11/26/18 12:09 Dose: 119 ml Documented by: [id number] Discontinued Medications Aspirin (Aspirin) 300 mg MS ONE ONE Stop: 11/26/18 12:50 Last Admin: 11/26/18 13:20 Dose: 300 mg Documented by: [id number] ECG Rate (beats per minute): poor quality ECG Code Status & VTE Plan Code Status DNR VTE Prophylaxis Plan VTE Prophylaxis will be ordered: Yes Supervising Physician Co-Signing Physician Notes I have seen and examined the patient with physician stylist assistant and agree with the assessment and plan and could like to comment that this a patient from nursing who may have had acute cerebrovascular accident one to two days ago and when presented to the Emergency room with imaging findings of Acute right thalamic infarct. As per patient's daughter at bedside, according to her, the patient was last seen to be her baseline on Saturday November 24, 2018 from her perspective but then patient not to be weak and this initial weakness at the [facility] was contributed to hypoglycemia. As per patient's daughter, the patient has in the recent past been generally bed ridden in the [facility] and had been more functional in recent past when she was still driving motor vehicle in June 2018 and then was diagnosed with dementia with recent July 2018 evaluations in [facility]. Patient's daughter denies previous history of stroke diagnosis On exam Neuro: Patient presents to ED with left sided facial droop and left sided weakness; she is able to move on her own the upper and lower extremities but strength is more diminished on left upper extremity than the right side. the lower extremities appears symmetrically weak Pupils equal and reactive to light Mouth: able to open moth; no tongue deviation Heart: regular rate Lungs: clear to auscultation bilaterally Abdomen: soft, nontender, positive bowel sounds At this point, patient is outside the guideline timing for TPA. Patient will need speech and swallow assessments and to be on rectal aspirin for now. will keep NPO and place on D5 1/2 normal saline for hydration. if patient can swallow then oral aspirin can be considered with home dose plavix and higher dose statin. 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 will place on sliding scale insulin and lower dose of long acting insulin while NPO and monitor to avoid hypoglycemia. will need physical and occupational therapy and neurology consultation. Patient was admitted by Dr. Ann and will be followed by Dr. Devi starting on 11/27/18 (1) Diabetes Diabetes mellitus complication status: without complication Diabetes mellitus usp insulin use: with usp use Diabetes mellitus type: type 2 Qualified Code(s): E11.9 - Type 2 diabetes mellitus without complications; Z79.4 - prison (current) use of insulin (2) CAD (coronary artery disease) Associated angina: without angina Coronary Disease-Associated Artery/Lesion type: [place] artery [place] vs. transplanted heart: [place] heart Qualified Code(s): I25.10 - Atherosclerotic heart disease of [place] coronary artery without angina pectoris (3) Dementia Dementia behavioral disturbance: without behavioral disturbance Dementia type: unspecified type Qualified Code(s): F03.90 - Unspecified dementia without behavioral disturbance (4) Depression Depression Type: unspecified Qualified Code(s): F32.9 - Major depressive disorder, single episode, unspecified (5) HLD (hyperlipidemia) Hyperlipidemia type: unspecified Qualified Code(s): E78.5 - Hyperlipidemia, unspecified (6) Hypertension Hypertension type: essential hypertension Qualified Code(s): I10 - Essential (primary) hypertension
[2018-11-26 14:18] LABS: Appearance Urine Cloudy (Clear); Bacteria Urine Automated 4+ (Negative); Bilirubin Urine Negative (Negative); Blood Urine 1+ (Negative); Color Urine Yellow; Epithelial Cell Urine Auto >30 /lpf (0-5); Glucose Urine UA Negative (Negative); Ketones Urine Trace (Negative); Leukocyte Esterase Urine 2+ (Negative); Nitrite Urine Positive (Negative); Protein Urine Negative (Negative); RBC Urine Automated 0-4 /hpf (0-4); Specific Gravity Urine > 1.045 (1.000-1.030); Urobilinogen Urine Negative (Negative); WBC Urine Automated >30 /hpf (0-5)
--- NOTE | 2018-11-26 14:54 | Ultrasound Report ---
BILATERAL LOWER EXTREMITY VENOUS DOPPLER HISTORY: Acute pain and swelling of the bilateral lower legs r/o DVT per attending COMPARISON STUDY: None. FINDINGS: There is normal compressibility, flow, and augmentation within the bilateral lower extremit y deep venous systems. IMPRESSION: No sonographic evidence of deep venous thrombosis within the right or left lower extremity. Electronically signed by: Connor Ross M.D. 11/26/2018 2:53 PM
[2018-11-26] MEDS ORDERED: GLUCOSE 10 TABS/TUBE PO PRN (15:02)
[2018-11-26] MEDS ORDERED: CARBOHYDRATES FOR HYPOGLYCEMIA PO PRN (15:02)
[2018-11-26] MEDS ORDERED: GLUCAGON FOR INJ 1 MG VIAL SQ PRN (15:02)
[2018-11-26] MEDS ORDERED: DEXTROSE 50% 50 ML SYRINGE IV PRN (15:02)
[2018-11-26] MEDS ORDERED: ONDANSETRON INJ 2 MG/ML 2 ML VIAL IV PRN (15:02)
[2018-11-26] MEDS ORDERED: PHARMACIST DISCHARGE MED REC CONSULT PRN (15:02)
[2018-11-26] MEDS ORDERED: PHARMACY GLYCEMIC MGMT CONSULT STA (15:02)
[2018-11-26] MEDS ORDERED: GLUCOSE 40% GEL 15 GM TUBE PO PRN (15:02)
[2018-11-26] MEDS ORDERED: PHARMACY GLYCEMIC MGMT CONSULT PRN (15:38)
--- NOTE | 2018-11-26 15:43 | Pharmacy Report ---
Glycemic Control Consultation - Date of Service November 26, 2018 - Scope Scope: Glycemic Pharmacist consulted by Inés Mckeon on 11/26/18 for glycemic control and to write orders per [facility] inpatient glycemic control protocol - Objective Weight: 100.1 kg Accuchecks BSG (last 24hrs): 11/26/18 11/26/18 11/26/18 11:25 11:40 11:43 Glucose 160 H POC Glucose 159 H POC Glucose (other) 169 H Laboratory Data (last 24hrs): 11/26/18 11:40 Potassium 4.0 Carbon Dioxide 29 Anion Gap 7.0 Creatinine 0.76 Est Cr Clr Drug Dosing 78.7 - Recent Pertinent Medications Outpatient Anti-diabetic Regimen: * Lantus 50 units SQ BID * Novolog 26 units with breakfast and lunch; 20 units with dinner * A1c = [] % [date] Risk Factors for Insulin Resistance: * IVF: D51/2NS @ 50 cc/hr * Diet: NPO - Assessment & Plan Assessment & Plan: ASSESSMENT: * Ms Fay is a 73 y/o F with a PMH of reasonably well-controlled T2DM who presents with a new onset stroke. Per patient's daughter she has been having hypoglycemia at her facility. * Patient takes about 172 units/day (per medication list) - this translates into Lantus 43 BID; Novolog CF of 10 and CR of 3. Due to the hypoglycemia and NPO status, will reduce by 40% (consider 20% reduction for NPO status and additional 20% for hypoglycemia). This correlates to weight-based stress of 3 dosing. * For Lantus, will create a scale where it is possible to hold Lantus as well as give up to 30 units (slightly above weight-based stress of 3 dosing). For Novolog will give CF of 20 (slightly looser that weight-based stress of 3) PLAN FOR INPATIENT GLYCEMIC CONTROL: * Basal insulin * Lantus 0-30 units SQ BID * Hold if BSG less than 120 mg/dL * Lantus 20 units if BSG 120-140 mg/dL * Lantus 25 units if BSG 141-180 mg/dL * Lantus 30 units if BSG greater than 180 mg/dL * Bolus insulin * NovoLog per scale ACHS or Q6hrs while NPO * Goal Range: Low 140 mg/dL - High 180 mg/dL * Correction Factor: 20 mg/dL/unit * Nutritional / Prandial insulin per carb ratio of 1 unit per 6 grams CHO consumed * Please note that the plan above was derived based on current level of insulin resistance and hospital stress. These recommendations are appropriate for inpati ent admission only. Plan of care upon discharge will need to be reassessed to avoid potential outpatient hypo/hyperglycemia. Thank you.
--- NOTE | 2018-11-26 15:48 | Neurology Consultation ---
Date of Consultation November 26, 2018 Assessment & Plan (1) Acute cerebrovascular accident (CVA): 1. CT head - right thalamic infarct 2. MRI brain pending 3. TTE pending 4. LE doppler no DVT 5. swallowing study passed formal bedside diet advanced 6. UTI- treat to culture 7. continue plavix 75 mg and aspirin 81 mg daily 8. switch simvastin to lipitor for better lipid coverage 9. optimize DM - not well controlled 10. PT/OT speech for discharge recs 11. optimize HTN, HLD, DM LDL <70 further recommendations after imaging is completed Supervising Physician Co-Signing Physician Notes I have seen and discussed above patient with Dr Marianne Huertas. Patient was seen and examined. Daughter at bedside. PAtient awake but disoriented to age and month. Following simple 2 step commands. Left facial droop is present. Daughter reporting increased confusion since yesterday which was noted at SNF. Also noted to have left facial droop yesterday. Patient evaluated in the ED and found to have a UTI and CT head showed acute to subacute right thalamic stroke. Patient is on dual antiplatlet therapy. Daughter reports she is on insulin although sugar have been hard to control. 1. UTI - Agree with treatment of UTI. Daughter reports encephalopathy in the past with previous UTI. Currently on Ceftriaxone. Cultures pending. 2. Right Thalamic infarct. CT head reviewed. Small lucency in right thalamus suggestive of subacute infarct. Likely small vessel in etiology. Reocmmend to continue dual antiplatet therapy. Recommend switching statin to high intensity statin, Lipitor 40 mg daily. HA1c Pending. Goal HA1c <7. Discussed with daughter at bedside. MRI brain and TTE pending. History of Present Illness Reason for Consultation: CVA Requesting Physician: Justus Mckenzie MD Attending Physician: Justus Mckenzie MD History of Present Illness Zuleyka is a 73 year old female with PMH of CAD hx of stents, DM2, HTN, HLD, dementia, gout, monoclonal gammopathy, depression, fibromyalgia who presented to ED with L sided weakness, x 1 day, She is a resident of [facility]. Her daughter is bedside and provides history. She has been at [facility] since July of 2018 after a hospitalization at [facility]. Prior to the hospitalizations she was driving and caring for herself but was showing signs of dementia. She stopped taking her medications and was not eating. She was found to have a blood glucose of over 480 at that admission. She didn't recognize her daughter and was not oriented. After her admission to [facility] she did recognize her daughter and was able to participate in PT. She is mostly bedbound and was noted to have L sided facial droop, difficulty drinking from a straw and gripping on the left. Currently she is sitting up in bed and able to talk with some slurring of speech. denies CP, SOB, abdominal pain, N, V, vision changes, swallowing issues. She saw the bedside swallowing study and diet has been advanced. Allergies Allergy/AdvReac Type Severity Reaction Status Date / Time etodolac Allergy Unknown . Verified 11/26/18 12:01 tolmetin Allergy Unknown . Verified 11/26/18 12:01 adhesive Allergy Unknown Unverified 11/26/18 12:01 ciprofloxacin [From Cipro] Allergy Unknown Unverified 11/26/18 12:01 iodine Allergy Unknown Unverified 11/26/18 12:01 lodine Allergy Unknown Uncoded 11/26/18 12:01 Home Medications Home Medications Medication Instructions Recorded Confirmed Type acetaminophen 500 mg PO Q6H PRN 11/26/18 11/26/18 History acetaminophen [Tylenol Extra 500 mg PO QID 11/26/18 11/26/18 History Strength] allopurinol 200 mg PO DAILY 11/26/18 11/26/18 History ascorbic acid (vitamin C) [Vitamin 1,000 mg PO DAILY 11/26/18 11/26/18 History C] aspirin 162 mg PO DAILY 11/26/18 11/26/18 History bisacodyl [Dulcolax (bisacodyl)] 10 mg MS DAILY PRN 11/26/18 11/26/18 History carboxymethylcellulose sodium 1 drp OPHTHALMIC (EYE) TID 11/26/18 11/26/18 History [Refresh Celluvisc] carvedilol [Coreg] 3.125 mg PO BID 11/26/18 11/26/18 History cholecalciferol (vitamin D3) 1,000 unit PO DAILY 11/26/18 11/26/18 History [Vitamin D3] citalopram 20 mg PO DAILY 11/26/18 11/26/18 History clopidogrel [Plavix] 75 mg PO DAILY 11/26/18 11/26/18 History dextrose [Glucose Gel] 1 dose PO DIRECTED PRN 11/26/18 11/26/18 History folic acid 1 mg PO DAILY 11/26/18 11/26/18 History glucagon (human recombinant) 1 dose SUBCUT DIRECTED 11/26/18 11/26/18 History [Glucagon Emergency Kit (human)] insulin aspart U-100 [Novolog 20 unit SUBCUT QPM 11/26/18 11/26/18 History U-100 Insulin aspart] insulin aspart U-100 [Novolog 26 unit SUBCUT BIDM 11/26/18 11/26/18 History U-100 Insulin aspart] insulin glargine [Lantus U-100 50 unit SUBCUT BID 11/26/18 11/26/18 History Insulin] lisinopril 20 mg PO DAILY 11/26/18 11/26/18 History magnesium hydroxide [Milk of 30 ml PO DAILY PRN 11/26/18 11/26/18 History Magnesia] menthol-zinc oxide [Calmoseptine] 1 applic TOPICAL DAILY PRN 11/26/18 11/26/18 History menthol-zinc oxide [Calmoseptine] 1 applic TOPICAL TID 11/26/18 11/26/18 History methenamine hippurate 1 g PO BID 11/26/18 11/26/18 History multivitamin 1 tab PO DAILY 11/26/18 11/26/18 History pantoprazole [Protonix] 40 mg PO DAILY 11/26/18 11/26/18 History promethazine 25 mg PO Q6H PRN 11/26/18 11/26/18 History sennosides-docusate sodium 2 tab PO BID 11/26/18 11/26/18 History [Senna-S] simvastatin 40 mg PO HS 11/26/18 11/26/18 History sodium phosphates [Fleet Enema] 118 ml MS DAILY PRN 11/26/18 11/26/18 History Patient History Medical History HLD (hyperlipidemia) (Chronic) Dementia (Chronic) Depression (Chronic) CAD (coronary artery disease) (Chronic) PVD (peripheral vascular disease) (Chronic) IBS (irritable bowel syndrome) (Chronic) Diabetes (Chronic) Hypertension (Chronic) Surgical History History of partial colectomy (Chronic) History of tonsillectomy and adenoidectomy (Chronic) History of cholecystectomy (Chronic) History of shoulder surgery (Chronic) History of percutaneous coronary intervention (Chronic) Family History Other Family history non-contributory Social History Communication Ability: Impaired Communication Ability Comment: h/o dementia Resolution Expert Required: No Beliefs That Will Affect Care: Worship Current Living Situation: Half-Way Current Living Situation Comment: [place] other: Bed Bound Feels Safe at Home: Yes Safety Concerns: Feels Safe At This Time Smoking Status: Former smoker Hx Alcohol Use: No Hx Substance Use: No Physical Exam Vital Signs (Past 24 Hours): Last Vital Signs Temp 37.0 C 11/26/18 11:42 Pulse 78 11/26/18 14:33 Resp 18 11/26/18 14:33 BP 104/67 11/26/18 14:33 Pulse Ox 96 11/26/18 14:33 Physical Exam: Constitutional: appearance significantly over nourished Ears, Nose, Mouth and Throat: mucous membranes moist, no injection and skin normal, eyes normal Cardiovascular: normal S-1 and S-2 and regular rate and rhythm Respiratory: course breath sounds, with wheezing Musculoskeletal: mild peripheral edema Skin: no stigmata of neurocutaneous disease noted and normal and intact Eyes: extraocular muscles intact (EOMI) and pupils equal, round and reactive to light (PERRL) NEUROLOGIC EXAMINATION: Mental status: Alert and interactive Oriented to full date and location Oriented to person Speech dysphasia Cranial Nerves flattening of naso labial fold on left tongue midline Reflexes: Deep tendon reflexes were symmetrical and graded 2/5. Plantar responses neutral Sensory: intact to cool and light touch Coordination: finger to nose without bi pass Gait/Stance: Posture lying in bed Motor: left pronator drift Strength: generalize weakness, right biceps triceps hand globe mounter 4+/5, left 4/5, hip flex right 4/5, left 4/5, plantar flex ext 4+/5 bilaterally Results & Data Laboratory Results Abnormal lab results 11/26/18 11/26/18 11/26/18 Range/Units 11:25 11:40 11:40 RDW Std Deviation 52.4 H (36.4-46.3) fL RDW Coeff of Dougie 15.0 H (11.5-14.5) % MPV 11.7 H (7.4-10.4) fL POC Anion Gap (16-25) mmol/L Glucose 160 H (70-99) mg/dl POC Glucose 159 H (70-99) POC Glucose (other) (70-99) mg/dl Magnesium 1.6 L (1.8-2.4) mg/dl Albumin 3.1 L (3.4-5.0) gm/dl Albumin/Globulin Ratio 0.8 L (0.9-2) Urine Appearance (Clear) Ur Specific [place] (1.000-1.030) Urine Ketones (Negative) Urine Blood (Negative) Urine Nitrite (Negative) Ur Leukocyte Esterase (Negative) Urine WBC (Auto) (0-5) /hpf U Epithel Cells (Auto) (0-5) /lpf Urine Bacteria (Auto) (Negative) 11/26/18 11/26/18 11/26/18 Range/Units 11:43 13:35 15:52 RDW Std Deviation (36.4-46.3) fL RDW Coeff of Dougie (11.5-14.5) % MPV (7.4-10.4) fL POC Anion Gap 12.0 L (16-25) mmol/L Glucose (70-99) mg/dl POC Glucose 162 H (70-99) POC Glucose (other) 169 H (70-99) mg/dl Magnesium (1.8-2.4) mg/dl Albumin (3.4-5.0) gm/dl Albumin/Globulin Ratio (0.9-2) Urine Appearance Cloudy H (Clear) Ur Specific [place] > 1.045 H (1.000-1.030) Urine Ketones Trace H (Negative) Urine Blood 1+ H (Negative) Urine Nitrite Positive H (Negative) Ur Leukocyte Esterase 2+ H (Negative) Urine WBC (Auto) >30 H (0-5) /hpf U Epithel Cells (Auto) >30 H (0-5) /lpf Urine Bacteria (Auto) 4+ H (Negative) Diagnostic Findings CXR-v=Cardiomegaly without overt pulmonary edema. Trace pleural effusions. Subsegmental left basilar opacities suggestive of atelectasis or pneumonitis. Unchanged mild right hemidiaphragmatic elevation. CTA head/neck-Acute right thalamic infarct. However, no significant stenosis, occlusion, or aneurysm within the [place]. No significant stenosis, occlusion, or dissection identified within the carotid or vertebral arteries. A total of 2 subcentimeter nodules within the left lung apex with the largest measuring 4 mm. Please refer to the chart below for recommended follow-up. Multinodular thyroid gland. venous doppler- No sonographic evidence of deep venous thrombosis within the right or left lower extremity.
[2018-11-26] MEDS: MAGNESIUM SULFATE / D5W 1 GM/100 ML BAG IV SCH ×3 (16:06→18:53)
[2018-11-26] MEDS: D5W AND 1/2NSS 1,000 ML IV SCH (16:11)
[2018-11-26] MEDS: cefTRIAXone SODIUM 1,000 MG in DEXTROSE 5% 50 ML IV SCH (17:22)
--- NOTE | 2018-11-26 17:23 | Magnetic Resonance Report ---
MRI OF THE BRAIN WITHOUT IV CONTRAST CLINICAL HISTORY: Strokelike symptoms. COMPARISON STUDY: CT of the brain dated 11/26/2018. TECHNIQUE: MRI of the brain was performed utilizing various T1 and T2-weighted sequences in the axial , sagittal, and coronal planes. IV contrast was not administered for this examination. FINDINGS: Brain parenchyma: There is age-related involutional change noting mild subcortical and periventricula r microangiopathic disease. There is a punctate focus of restricted diffusion identified in the right centrum semiovale, best seen on image #16. This is consistent with an acute to subacute lacunar infa rct. No additional foci of restricted diffusion are identified. There are chronic lacunar infarcts id entified in the right thalamus, the anterior corpus callosum, the right rossy, and the right cerebella r hemisphere. There is no hemorrhage or mass effect. [place]-white matter differentiation is preserved. No extra-axial fluid collection is seen. The cerebellar tonsils are normal in configuration. Ventricles, sulci, and cisterns: Prominent secondary to involutional change. Pituitary and sella: Partially empty sella is incidentally noted. Intracranial vasculature: Normal flow voids are maintained at the skull base. Orbits: The bony orbits are grossly intact. Orbital contents are normal in appearance. Sinuses and mastoids: There are trace mastoid effusions. The paranasal sinuses appear clear. Calvarium: Unremarkable. Cervical cord: Partially visualized cervical spinal cord is normal in morphology and signal intensity . IMPRESSION: 1. There is a subcentimeter focus of restricted diffusion identified in the right centrum semiovale. This is consistent with an acute to subacute lacunar infarct. 2. No additional foci of acute ischemia are identified. 3. There is no hemorrhage or mass effect. 4. Additional chronic lacunar infarcts as above. Electronically signed by: Charlie Fernandes M.D. 11/26/2018 5:22 PM
[2018-11-26] MEDS ORDERED: INSULIN ASPART 100 UNITS/ML 3 ML PEN SC SCH (18:00)
[2018-11-26] MEDS ORDERED: Nursing to Pharmacy Communication ONE (20:30)
[2018-11-26] MEDS ORDERED: INSULIN GLARGINE SOLOSTAR 100 UNITS/ML 3 ML PEN SC SCH (21:00)
[2018-11-26] MEDS: CARVEDILOL 3.125 MG TAB PO SCH (22:54)
[2018-11-26] MEDS: ATORVASTATIN 40 MG TAB PO SCH (22:55)
[2018-11-27 05:54] LABS: Basophils # (auto) 0.04 K/uL (0-0.2); Basophils % (auto) 0.4 %; Eosinophils # (auto) 0.63 K/uL (0-0.5); Hematocrit (blood only) 42.1 % (37-47); Hemoglobin 14.1 g/dL (12.0-16.0); Immature Granulocytes # (auto) 0.02 K/uL (0.00-0.02); Immature Granulocytes % (auto) 0.2 %; Lymphocytes # (auto) 2.07 K/uL (1.2-3.4); Lymphocytes % (auto) 23.1 %; Mean Corpuscular Hgb Conc 33.5 g/dL (32-36); Mean Platelet Volume 11.7 fL (7.4-10.4); Monocytes # (auto) 0.67 K/uL (0.11-0.59); Monocytes % (auto) 7.5 %; Neutrophils # (auto) 5.55 K/uL (1.4-6.5); Neutrophils % (auto) 61.8 %; Platelet Count 189 K/uL (130-400); RDW Coefficient of Variation 15.1 % (11.5-14.5); RDW Standard Deviation 52.2 fL (36.4-46.3); Red Blood Count 4.43 M/uL (4.2-5.4); White Blood Count 8.98 K/uL (4.8-10.8)
[2018-11-27 06:13] LABS: Estimated Average Glucose 166 mg/dl; Hemoglobin A1C 7.4 % (4.5-5.6)
[2018-11-27 06:32] LABS: BUN Creatinine Ratio 14.8 (10-20); Calcium 8.8 mg/dl (8.5-10.1); Creatinine Clr Calc Pharmacy 77.7 ml/min; Est GFR (African American) 88.8; Est GFR (Non-African American) 76.6; Potassium 3.8 mmol/L (3.5-5.1)
[2018-11-27] MEDS ORDERED: INSULIN ASPART 100 UNITS/ML 3 ML PEN SC SCH (07:30)
[2018-11-27] MEDS: CITALOPRAM 20 MG TAB PO SCH (08:31)
[2018-11-27] MEDS: ALLOPURINOL 100 MG TAB PO SCH (08:31)
[2018-11-27] MEDS: CLOPIDOGREL BISULFATE 75 MG TAB PO SCH (08:31)
[2018-11-27] MEDS: ASCORBIC ACID 500 MG TAB PO SCH (08:31)
[2018-11-27] MEDS: FOLIC ACID 1 MG TAB PO SCH (08:32)
[2018-11-27] MEDS: CARVEDILOL 3.125 MG TAB PO SCH ×2 (08:32→21:15)
[2018-11-27] MEDS: PANTOprazole 40 MG TAB PO SCH (08:32)
[2018-11-27] MEDS: INSULIN ASPART 100 UNITS/ML 3 ML PEN SC SCH ×4 (08:36→21:15)
[2018-11-27] MEDS ORDERED: INSULIN GLARGINE SOLOSTAR 100 UNITS/ML 3 ML PEN SC SCH (09:00)
[2018-11-27] MEDS ORDERED: ASPIRIN 300 MG SUPP PR SCH (09:00)
[2018-11-27] MEDS: ASPIRIN 81 MG ECTAB PO SCH (10:34)
[2018-11-27] MEDS: D5W AND 1/2NSS 1,000 ML IV SCH (12:52)
--- NOTE | 2018-11-27 14:47 | Neurology Progress Note ---
Date of Service November 27, 2018 Assessment & Plan (1) Acute cerebrovascular accident (CVA): 1. CT head - right thalamic infarct 2. MRI brain- lacunar infarct, old infarcts noted 3. TTE pending read, cardiology input for any change in antiplt, anticoag 4. LE doppler no DVT 5. swallowing study passed formal bedside diet advanced 6. UTI- treat to culture 7. continue plavix 75 mg and aspirin 81 mg daily 8. switch simvastin to lipitor for better lipid coverage 9. optimize DM - not well controlled- is refusing some meals would consider moderate not tight control 10. PT/OT speech for discharge recs 11. optimize HTN, HLD, DM LDL <70 12. ZIO as outpatient r/o irregular heart rate Supervising Physician Co-Signing Physician Notes I have seen and discussed above patient with Dr Yoel Huertas. Patient was seen and examined. I agree with Poppy Brooks PA-c as noted below. No family at bedside on my evaluation. Patient sleeping. Very lethargic but arouses with sternal rub. Falls back asleep without repeated stimulation. Moderate left facial droop. Non verbal. Quickly returns to snoring without external stimulation. MRI brain reviewed. My impression is lacunar infarct in the right subcortical territory of the MCA distribution. Likely lenticulostriate arteries. Vascular changes in this territory have been emphasized in dementia. CTA head and neck reviewed. No high grade carotid or intracranial stenosis Recommend to continue current ASA and Plavix. May need NG tube if patient remains NPO. High intensity statin, Liptior 40 mg daily HA1c goal< 7 (HA1c 7.4) PT/OT/ SS DVT Prophylaxis Will defer antimicrobial therapy to primary for UTI treatment. Disposition: SNF Subjective Zuleyka is a 73 year old female with PMH of CAD hx of stents, DM2, HTN, HLD, dementia, gout, monoclonal gammopathy, depression, fibromyalgia who presented to ED with L sided weakness, x 1 day, She is a resident of [facility]. Her daughter is bedside and provides history. She has been at [facility] since July of 2018 after a hospitalization at [facility]. Prior to the hospitalizations she was driving and caring for herself but was showing signs of dementia. She stopped taking her medications and was not eating. She was found to have a blood glucose of over 480 at that admission. She didn't recognize her daughter and was not oriented. After her admission to [facility] she did recognize her daughter and was able to participate in PT. She is mostly bedbound and was noted to have L sided facial droop, difficulty drinking from a straw and gripping on the left. Currently she is sitting up in bed and able to talk with some slurring of speech. She saw the bedside swallowing study and diet has been advanced. denies CP, SOB, abdominal pain, N, V, vision changes, swallowing issues. Physical Exam Vital Signs (Past 24 Hours): Last Vital Signs Temp 37.0 C 11/27/18 11:14 Pulse 77 11/27/18 11:54 Resp 20 11/27/18 11:14 BP 117/67 11/27/18 11:14 Pulse Ox 92 11/27/18 11:14 Gen: obtunded Lungs CTA CV RRR right UE hand recreation professor biceps triceps 5/5, left arm raise slightly off bed, 0/5 hand recreation professor. right toes plantar flex ext left facial droop, slurred speech, oriented to self, hospital Results & Data Laboratory Results Abnormal lab results 11/26/18 11/26/18 11/26/18 Range/Units 11:40 15:52 20:39 RDW Std Deviation (36.4-46.3) fL RDW Coeff of Dougie (11.5-14.5) % MPV (7.4-10.4) fL [place] # (Auto) (0.11-0.59) K/uL Eos # (Auto) (0-0.5) K/uL Glucose (70-99) mg/dl POC Glucose 162 H 190 H (70-99) Hemoglobin A1c 7.4 H (4.5-5.6) % Triglycerides (0-150) mg/dl 11/27/18 11/27/18 11/27/18 Range/Units 05:31 05:31 07:22 RDW Std Deviation 52.2 H (36.4-46.3) fL RDW Coeff of Dougie 15.1 H (11.5-14.5) % MPV 11.7 H (7.4-10.4) fL [place] # (Auto) 0.67 H (0.11-0.59) K/uL Eos # (Auto) 0.63 H (0-0.5) K/uL Glucose 175 H (70-99) mg/dl POC Glucose 173 H (70-99) Hemoglobin A1c (4.5-5.6) % Triglycerides 206 H (0-150) mg/dl 11/27/18 Range/Units 11:21 RDW Std Deviation (36.4-46.3) fL RDW Coeff of Dougie (11.5-14.5) % MPV (7.4-10.4) fL [place]rell # (Auto) (0.11-0.59) K/uL Eos # (Auto) (0-0.5) K/uL Glucose (70-99) mg/dl POC Glucose 237 H (70-99) Hemoglobin A1c (4.5-5.6) % Triglycerides (0-150) mg/dl Diagnostic Findings MRI brain-There is a subcentimeter focus of restricted diffusion identified in the right centrum semiovale. This is consistent with an acute to subacute lacunar infarct. No additional foci of acute ischemia are identified. There is no hemorrhage or mass effect. Additional chronic lacunar infarcts as above.
--- NOTE | 2018-11-27 15:15 | Pharmacy Report ---
Pharmacy Glycemic Short Note 2 - Date of Service November 27, 2018 - Glycemic Short BSG Results (Last 24 hours): 11/26/18 11/26/18 11/27/18 15:52 20:39 05:31 Glucose 175 H POC Glucose 162 H 190 H 11/27/18 11/27/18 07:22 11:21 Glucose POC Glucose 173 H 237 H ASSESSMENT: 11-27: * Patient received total of 81 units of insulin yesterday - patient had been NPO, 80 units was basal insulin (which is ~20% decrease from home Lantus) * Fasting BSG elevated at 175 mg/dL - will titrate basal insulin since resuming diet at this time; give 45 units this morning and will add a scale for this evening * Lunchtime BSG trending up to 237 mg/dL - tightened CF/CR; per nurse patient asleep during lunch so did not eat anything / only received correctional insulin * IV fluids with dextrose still running at this time due to previous hypoglycemia prior to arrival 11-26: * Ms Fay is a 73 y/o F with a PMH of reasonably well-controlled T2DM who presents with a new onset stroke. Per patient's daughter she has been having hypoglycemia at her facility. * Patient takes about 172 units/day (per medication list) - this translates into Lantus 43 BID; Novolog CF of 10 and CR of 3. Due to the hypoglycemia and NPO status, will reduce by 40% (consider 20% reduction for NPO status and additional 20% for hypoglycemia). This correlates to weight-based stress of 3 dosing. * For Lantus, will create a scale where it is possible to hold Lantus as well as give up to 30 units (slightly above weight-based stress of 3 dosing). For Novolog will give CF of 20 (slightly looser that weight-based stress of 3) PLAN FOR INPATIENT GLYCEMIC CONTROL: * Hold outpatient oral diabetes medications * Basal insulin * Lantus BID -For BSG less than 140 - give 40 units -For BSG 140-180 - give 45 units -For BSG greater than 180 - give 50 units * Bolus insulin - tighten - add check for overnight * NovoLog per scale ACHS or Q6hrs while NPO * Goal Range: Low 120 mg/dL - High 160 mg/dL * Correction Factor: 15 mg/dL/unit * Nutritional / Prandial insulin per carb ratio of 1 unit per 5 grams CHO consumed
[2018-11-27] MEDS: cefTRIAXone SODIUM 1,000 MG in DEXTROSE 5% 50 ML IV SCH (16:57)
--- NOTE | 2018-11-27 20:16 | Hospitalist Progress Note ---
Date of Service November 27, 2018 Assessment & Plan (1) Acute cerebrovascular accident (CVA): Presented with left-sided weakness. CT head suggested right thalamic infarct. CTA cervical and intracranial vessels did not show any dissection, aneurysm, significant stenosis. MRI brain demonstrated acute vs subacute ischemic infarct right centrum semiovale. Cardiac rhythm NSR. Echo report pending. Neuro consulted. Continued antiplatelet therapy with aspirin and clopidogrel recommended. Continue statin. PT / OT / DETECTIVE PRECINCT. Aspiration precautions. Fall precautions. (2) CAD (coronary artery disease): Continue aspirin, clopidogrel, carvedilol, statin. (3) Hypertension: Continue carvedilol. (4) Lung nodule < 6cm on CT: Incidental finding on CT. Further evaluation not indicated at this time due to acute stroke and other co- morbidities. (5) Diabetes mellitus type 2 with complications: Lantus / Novolog per protocol. (6) Dementia: Monitor for delirium. (7) Do not resuscitate status: As noted. (8) DVT prophylaxis: SCD's. (9) Discharge planning issues: Anticipated return to [facility] with skilled care. Subjective Recheck for stroke and other problems. Pt seen in her room around 1440. Confused. Does not answer questions reliably. Review of Systems Unobtainable due to cognitive status Physical Exam Vital Signs (Past 24 Hours): Last Vital Signs Temp 36.7 C 11/27/18 19:00 Pulse 73 11/27/18 19:00 Resp 22 11/27/18 19:00 BP 157/69 H 11/27/18 19:00 Pulse Ox 93 11/27/18 19:00 Constitutional: no acute distress Respiratory: no respiratory distress Auscultation: lungs clear to auscultation bilaterally Cardiovascular: Rate/Rhythm: regular rate and regular rhythm Vessels: no JVD Extremities: + edema (trace pretibial); no calf tenderness Gastrointestinal (Abdomen): normal bowel sounds, soft, nontender, no hepatosplenomegaly Musculoskeletal: Extremities: no cyanosis Skin: no rashes, warm and dry Neurologic: Somnolent. Minimally verbal. Left facial palsy. Weak left hand hand box coverer. Plantar reflexes equivocal. Results & Data Laboratory Results Laboratory Results - last 24 hr 11/26/18 11/27/18 11/27/18 11:40 05:31 05:31 WBC 8.98 RBC 4.43 Hgb 14.1 Hct 42.1 MCV 95.0 MCH 31.8 MCHC 33.5 RDW Std Deviation 52.2 H RDW Coeff of Dougie 15.1 H Plt Count 189 MPV 11.7 H Immature Gran % (Auto) 0.2 Neut % (Auto) 61.8 Lymph % (Auto) 23.1 [place] % (Auto) 7.5 Eos % (Auto) 7.0 Baso % (Auto) 0.4 Immature Gran # (Auto) 0.02 Neut # (Auto) 5.55 Lymph # (Auto) 2.07 [place] # (Auto) 0.67 H Eos # (Auto) 0.63 H Baso # (Auto) 0.04 Sodium 136 Potassium 3.8 Chloride 100 Carbon Dioxide 30 Anion Gap 6.0 BUN 11 Creatinine 0.77 Est Cr Clr Drug Dosing 77.7 Est GFR ( Amer) 88.8 Est GFR (Non-Af Amer) 76.6 BUN/Creatinine Ratio 14.8 Glucose 175 H POC Glucose Estimat Average Glucose 166 Hemoglobin A1c 7.4 H Calcium 8.8 Triglycerides 206 H Cholesterol 164 LDL Cholesterol, Calc 81 VLDL Cholesterol, Calc 41 HDL Cholesterol 42 Cholesterol/HDL Ratio 4 11/27/18 11/27/18 11/27/18 07:22 11:21 15:57 WBC RBC Hgb Hct MCV MCH MCHC RDW Std Deviation RDW Coeff of Dougie Plt Count MPV Immature Gran % (Auto) Neut % (Auto) Lymph % (Auto) [place] % (Auto) Eos % (Auto) Baso % (Auto) Immature Gran # (Auto) Neut # (Auto) Lymph # (Auto) [place] # (Auto) Eos # (Auto) Baso # (Auto) Sodium Potassium Chloride Carbon Dioxide Anion Gap BUN Creatinine Est Cr Clr Drug Dosing Est GFR ( Amer) Est GFR (Non-Af Amer) BUN/Creatinine Ratio Glucose POC Glucose 173 H 237 H 191 H Estimat Average Glucose Hemoglobin A1c Calcium Triglycerides Cholesterol LDL Cholesterol, Calc VLDL Cholesterol, Calc HDL Cholesterol Cholesterol/HDL Ratio 11/27/18 11/27/18 20:15 23:47 WBC RBC Hgb Hct MCV MCH MCHC RDW Std Deviation RDW Coeff of Dougie Plt Count MPV Immature Gran % (Auto) Neut % (Auto) Lymph % (Auto) [place] % (Auto) Eos % (Auto) Baso % (Auto) Immature Gran # (Auto) Neut # (Auto) Lymph # (Auto) [place] # (Auto) Eos # (Auto) Baso # (Auto) Sodium Potassium Chloride Carbon Dioxide Anion Gap BUN Creatinine Est Cr Clr Drug Dosing Est GFR ( Amer) Est GFR (Non-Af Amer) BUN/Creatinine Ratio Glucose POC Glucose 217 H 155 H Estimat Average Glucose Hemoglobin A1c Calcium Triglycerides Cholesterol LDL Cholesterol, Calc VLDL Cholesterol, Calc HDL Cholesterol Cholesterol/HDL Ratio (1) CAD (coronary artery disease) Coronary Disease-Associated Artery/Lesion type: [place] artery [place] vs. transplanted heart: [place] heart Associated angina: without angina Qualified Code(s): I25.10 - Atherosclerotic heart disease of [place] coronary artery without angina pectoris (2) Dementia Dementia type: unspecified type Dementia behavioral disturbance: without behavioral disturbance Qualified Code(s): F03.90 - Unspecified dementia without behavioral disturbance (3) Hypertension Hypertension type: essential hypertension Qualified Code(s): I10 - Essential (primary) hypertension
[2018-11-27] MEDS: INSULIN GLARGINE SOLOSTAR 100 UNITS/ML 3 ML PEN SC SCH (21:14)
[2018-11-27] MEDS: ATORVASTATIN 40 MG TAB PO SCH (21:16)
[2018-11-28] MEDS ORDERED: INSULIN ASPART 100 UNITS/ML 3 ML PEN SC SCH
[2018-11-28 06:03] LABS: Basophils # (auto) 0.04 K/uL (0-0.2); Basophils % (auto) 0.5 %; Eosinophils # (auto) 0.64 K/uL (0-0.5); Eosinophils % (auto) 7.6 %; Hemoglobin 13.4 g/dL (12.0-16.0); Immature Granulocytes # (auto) 0.01 K/uL (0.00-0.02); Immature Granulocytes % (auto) 0.1 %; Lymphocytes # (auto) 2.23 K/uL (1.2-3.4); Lymphocytes % (auto) 26.4 %; Mean Corpuscular Hgb Conc 33.5 g/dL (32-36); Mean Corpuscular Volume 95.7 fL (80-100); Mean Platelet Volume 11.4 fL (7.4-10.4); Monocytes # (auto) 0.67 K/uL (0.11-0.59); Monocytes % (auto) 7.9 %; Neutrophils # (auto) 4.87 K/uL (1.4-6.5); Neutrophils % (auto) 57.5 %; Platelet Count 177 K/uL (130-400); RDW Coefficient of Variation 14.9 % (11.5-14.5); RDW Standard Deviation 52.5 fL (36.4-46.3); Red Blood Count 4.18 M/uL (4.2-5.4); White Blood Count 8.46 K/uL (4.8-10.8)
[2018-11-28 06:39] LABS: BUN Creatinine Ratio 14.6 (10-20); Calcium 8.7 mg/dl (8.5-10.1); Creatinine Clr Calc Pharmacy 82.7 ml/min; Est GFR (African American) 96.3; Est GFR (Non-African American) 83.1; Potassium 3.6 mmol/L (3.5-5.1)
[2018-11-28] MEDS ORDERED: INSULIN GLARGINE SOLOSTAR 100 UNITS/ML 3 ML PEN SC SCH (09:00)
[2018-11-28] MEDS: INSULIN ASPART 100 UNITS/ML 3 ML PEN SC SCH ×4 (09:07→20:40)
[2018-11-28] MEDS: CITALOPRAM 20 MG TAB PO SCH (09:09)
[2018-11-28] MEDS: CARVEDILOL 3.125 MG TAB PO SCH ×2 (09:10→20:38)
[2018-11-28] MEDS: ASPIRIN 81 MG ECTAB PO SCH (09:10)
[2018-11-28] MEDS: FOLIC ACID 1 MG TAB PO SCH (09:11)
[2018-11-28] MEDS: PANTOprazole 40 MG TAB PO SCH (09:12)
[2018-11-28] MEDS: CLOPIDOGREL BISULFATE 75 MG TAB PO SCH (09:12)
[2018-11-28] MEDS: ASCORBIC ACID 500 MG TAB PO SCH (09:13)
[2018-11-28] MEDS: D5W AND 1/2NSS 1,000 ML IV SCH (09:13)
[2018-11-28] MEDS: ALLOPURINOL 100 MG TAB PO SCH (09:13)
--- NOTE | 2018-11-28 13:32 | Pharmacy Report ---
Pharmacy Glycemic Short Note 2 - Date of Service November 28, 2018 - Glycemic Short BSG Results (Last 24 hours): 11/27/18 11/27/18 11/27/18 15:57 20:15 23:47 Glucose POC Glucose 191 H 217 H 155 H 11/28/18 11/28/18 11/28/18 05:52 07:33 11:42 Glucose 117 H POC Glucose 119 H 165 H ASSESSMENT: 3: * Patient received total of 122 units of insulin yesterday, 95 units of which were basal insulin (typically she is on Lantus 50 BID at home) * Diet had been resumed yesterday and had tightened CF/CR - BSGs now trending down today, will continue same for now * Lunchtime BSG today at 165 mg/dL - much improved from yesterday * Fasting BSG within range at 117 mg/dL ; patient will get Lantus 45 units this am, then will continue with scale for this evening * Patient continues on IV fluids with dextrose, will continue to monitor 11-27: * Patient received total of 81 units of insulin yesterday - patient had been NPO, 80 units was basal insulin (which is ~20% decrease from home Lantus) * Fasting BSG elevated at 175 mg/dL - will titrate basal insulin since resuming diet at this time; give 45 units this morning and will add a scale for this evening * Lunchtime BSG trending up to 237 mg/dL - tightened CF/CR; per nurse patient asleep during lunch so did not eat anything / only received correctional insulin * IV fluids with dextrose still running at this time due to previous hypoglycemia prior to arrival 11-26: * Ms Fay is a 73 y/o F with a PMH of reasonably well-controlled T2DM who presents with a new onset stroke. Per patient's daughter she has been having hypoglycemia at her facility. * Patient takes about 172 units/day (per medication list) - this translates into Lantus 43 BID; Novolog CF of 10 and CR of 3. Due to the hypoglycemia and NPO status, will reduce by 40% (consider 20% reduction for NPO status and additional 20% for hypoglycemia). This correlates to weight-based stress of 3 dosing. * For Lantus, will create a scale where it is possible to hold Lantus as well as give up to 30 units (slightly above weight-based stress of 3 dosing). For Novolog will give CF of 20 (slightly looser that weight-based stress of 3) PLAN FOR INPATIENT GLYCEMIC CONTROL: * Hold outpatient oral diabetes medications * Basal insulin: will give 45 units this am, then * Lantus BID -For BSG less than 140 - give 40 units -For BSG 140-180 - give 45 units -For BSG greater than 180 - give 50 units * Bolus insulin - continue same * NovoLog per scale ACHS or Q6hrs while NPO * Goal Range: Low 120 mg/dL - High 160 mg/dL * Correction Factor: 15 mg/dL/unit * Nutritional / Prandial insulin per carb ratio of 1 unit per 5 grams CHO consumed
[2018-11-28] MEDS: cefTRIAXone SODIUM 1,000 MG in DEXTROSE 5% 50 ML IV SCH (17:51)
[2018-11-28] MEDS: ATORVASTATIN 40 MG TAB PO SCH (20:38)
[2018-11-28] MEDS: INSULIN GLARGINE SOLOSTAR 100 UNITS/ML 3 ML PEN SC SCH (20:38)
--- NOTE | 2018-11-28 22:59 | Hospitalist Progress Note ---
Date of Service November 28, 2018 Assessment & Plan (1) Acute cerebrovascular accident (CVA): Presented with left-sided weakness. CT head suggested right thalamic infarct. CTA cervical and intracranial vessels did not show any dissection, aneurysm, significant stenosis. MRI brain demonstrated acute vs subacute ischemic infarct right centrum semiovale. Cardiac rhythm NSR. Echo - no apparent intracardiac thrombi or right to left shunt. Neuro consulted. Continued antiplatelet therapy with aspirin and clopidogrel recommended. LDL = 81; continue statin. 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 Aspiration precautions. Fall precautions. (2) Altered mental status: Confused at time of admission. Underlying dementia. Confusion probably encephalopathy / delirium due to UTI and/or secondary to stroke. Improved. (3) Urinary tract infection: (present on admission) Urine culture growing E coli. Receiving IV ceftriaxone. (4) Decubitus ulcer: Stage 2 decubitus ulcer left buttock. (present on admission) Wound Care Nursing consulted. (5) CAD (coronary artery disease): Continue aspirin, clopidogrel, carvedilol, statin. (6) Hypertension: Continue carvedilol. (7) Lung nodule < 6cm on CT: Incidental finding on CT. Further evaluation not indicated at this time due to acute stroke and other co- morbidities. (8) Diabetes mellitus type 2 with complications: Generally fairly-well controlled. Hgb A1C = 7.4. FBS = 119. Lantus / Novolog per protocol. (9) Dyslipidemia: LDL = 81. Continue high-intensity atorvastatin. (10) Dementia: Monitor for delirium. (11) DVT prophylaxis: SCD's. (12) Do not resuscitate status: As noted. (13) Discharge planning issues: Anticipated return to [facility] with skilled care. Subjective Recheck for stroke and other problems. Pt seen in her room around 1950. More alert & more conversant. Still confused. No headache. Persistent left-sided weakness. No fever. No chest pain. No cough or SOB. No nausea or vomiting. No diarrhea. Has Estes cath. Review of Systems Other (as noted above) Physical Exam Vital Signs (Past 24 Hours): Last Vital Signs Temp 36.6 C 11/28/18 20:00 Pulse 86 11/28/18 20:48 Resp 19 11/28/18 20:00 BP 115/47 L 11/28/18 20:48 Pulse Ox 96 11/28/18 20:00 Constitutional: no acute distress Respiratory: no respiratory distress Auscultation: lungs clear to auscultation bilaterally Cardiovascular: Rate/Rhythm: regular rate and regular rhythm Vessels: no JVD Extremities: + edema (trace pretibial); no calf tenderness Gastrointestinal (Abdomen): normal bowel sounds, soft, nontender, no hepatosplenomegaly Musculoskeletal: Extremities: + abnormal strength (LUE + LLE weakness); no cyanosis Skin: no rashes, warm and dry Neurologic: + confused Psychiatric: Orientation: oriented to person Results & Data Laboratory Results Laboratory Results - last 24 hr 11/27/18 11/28/18 11/28/18 23:47 05:52 05:52 WBC 8.46 RBC 4.18 L Hgb 13.4 Hct 40.0 MCV 95.7 MCH 32.1 MCHC 33.5 RDW Std Deviation 52.5 H RDW Coeff of Dougie 14.9 H Plt Count 177 MPV 11.4 H Immature Gran % (Auto) 0.1 Neut % (Auto) 57.5 Lymph % (Auto) 26.4 Drew % (Auto) 7.9 Eos % (Auto) 7.6 Baso % (Auto) 0.5 Immature Gran # (Auto) 0.01 Neut # (Auto) 4.87 Lymph # (Auto) 2.23 Drew # (Auto) 0.67 H Eos # (Auto) 0.64 H Baso # (Auto) 0.04 Sodium 142 Potassium 3.6 Chloride 106 Carbon Dioxide 31 Anion Gap 5.0 BUN 11 Creatinine 0.72 Est Cr Clr Drug Dosing 82.7 Est GFR ( Amer) 96.3 Est GFR (Non-Af Amer) 83.1 BUN/Creatinine Ratio 14.6 Glucose 117 H POC Glucose 155 H Calcium 8.7 11/28/18 11/28/18 11/28/18 07:33 11:42 16:00 WBC RBC Hgb Hct MCV MCH MCHC RDW Std Deviation RDW Coeff of Dougie Plt Count MPV Immature Gran % (Auto) Neut % (Auto) Lymph % (Auto) Drew % (Auto) Eos % (Auto) Baso % (Auto) Immature Gran # (Auto) Neut # (Auto) Lymph # (Auto) Drew # (Auto) Eos # (Auto) Baso # (Auto) Sodium Potassium Chloride Carbon Dioxide Anion Gap BUN Creatinine Est Cr Clr Drug Dosing Est GFR ( Amer) Est GFR (Non-Af Amer) BUN/Creatinine Ratio Glucose POC Glucose 119 H 165 H 139 H Calcium 11/28/18 20:31 WBC RBC Hgb Hct MCV MCH MCHC RDW Std Deviation RDW Coeff of Dougie Plt Count MPV Immature Gran % (Auto) Neut % (Auto) Lymph % (Auto) Drew % (Auto) Eos % (Auto) Baso % (Auto) Immature Gran # (Auto) Neut # (Auto) Lymph # (Auto) Drew # (Auto) Eos # (Auto) Baso # (Auto) Sodium Potassium Chloride Carbon Dioxide Anion Gap BUN Creatinine Est Cr Clr Drug Dosing Est GFR ( Amer) Est GFR (Non-Af Amer) BUN/Creatinine Ratio Glucose POC Glucose 185 H Calcium (1) CAD (coronary artery disease) Coronary Disease-Associated Artery/Lesion type: [place] artery [place] vs. transplanted heart: [place] heart Associated angina: without angina Qualified Code(s): I25.10 - Atherosclerotic heart disease of [place] coronary artery without angina pectoris (2) Hypertension Hypertension type: essential hypertension Qualified Code(s): I10 - Essential (primary) hypertension (3) Dementia Dementia type: unspecified type Dementia behavioral disturbance: without beh avioral disturbance Qualified Code(s): F03.90 - Unspecified dementia without behavioral disturbance
[2018-11-29] MEDS: D5W AND 1/2NSS 1,000 ML IV SCH (06:00)
[2018-11-29 07:40] LABS: BUN Creatinine Ratio 13.1 (10-20); Calcium 8.7 mg/dl (8.5-10.1); Creatinine Clr Calc Pharmacy 89.6 ml/min; Est GFR (African American) 101.1; Est GFR (Non-African American) 87.2; Potassium 3.5 mmol/L (3.5-5.1)
[2018-11-29] MEDS: INSULIN ASPART 100 UNITS/ML 3 ML PEN SC SCH ×2 (08:51→13:08)
[2018-11-29] MEDS: CITALOPRAM 20 MG TAB PO SCH (08:52)
[2018-11-29] MEDS: CLOPIDOGREL BISULFATE 75 MG TAB PO SCH (08:53)
[2018-11-29] MEDS: ASPIRIN 81 MG ECTAB PO SCH (08:54)
[2018-11-29] MEDS: INSULIN GLARGINE SOLOSTAR 100 UNITS/ML 3 ML PEN SC SCH (08:54)
[2018-11-29] MEDS: ALLOPURINOL 100 MG TAB PO SCH (08:55)
[2018-11-29] MEDS: PANTOprazole 40 MG TAB PO SCH (08:55)
[2018-11-29] MEDS: ASCORBIC ACID 500 MG TAB PO SCH (08:55)
[2018-11-29] MEDS: FOLIC ACID 1 MG TAB PO SCH (08:56)
[2018-11-29] MEDS: CARVEDILOL 3.125 MG TAB PO SCH (08:56)
--- NOTE | 2018-11-29 11:29 | Pharmacy Report ---
Pharmacy Glycemic Short Note 2 - Date of Service November 29, 2018 - Glycemic Short BSG Results (Last 24 hours): 11/28/18 11/28/18 11/28/18 11:42 16:00 20:31 Glucose POC Glucose 165 H 139 H 185 H 11/29/18 11/29/18 06:23 07:50 Glucose 103 H POC Glucose 109 H ASSESSMENT: 3: * Patient received total 121 units of insulin yesterday, 95 units of which were basal insulin. * Fasting BSG this AM = 103 today. Patient received 40 units of Lantus this AM, will continue based on scale this evening. * IV Dextrose was discontinued this AM, therefore Novolog carb ratio was loosened to 8 for lunch. Starting at dinner, CF was also loosened in anticipation of lower BSG d/t IV Dextrose being d/c'd and that patient hardly ate any lunch today. 3: * Patient received total of 122 units of insulin yesterday, 95 units of which were basal insulin (typically she is on Lantus 50 BID at home) * Diet had been resumed yesterday and had tightened CF/CR - BSGs now trending down today, will continue same for now * Lunchtime BSG today at 165 mg/dL - much improved from yesterday * Fasting BSG within range at 117 mg/dL ; patient will get Lantus 45 units this am, then will continue with scale for this evening * Patient continues on IV fluids with dextrose, will continue to monitor 3-20: * Patient received total of 81 units of insulin yesterday - patient had been NPO, 80 units was basal insulin (which is ~20% decrease from home Lantus) * Fasting BSG elevated at 175 mg/dL - will titrate basal insulin since resuming diet at this time; give 45 units this morning and will add a scale for this evening * Lunchtime BSG trending up to 237 mg/dL - tightened CF/CR; per nurse patient asleep during lunch so did not eat anything / only received correctional insulin * IV fluids with dextrose still running at this time due to previous hypo glycemia prior to arrival 11-26: * Ms Fay is a 73 y/o F with a PMH of reasonably well-controlled T2DM who presents with a new onset stroke. Per patient's daughter she has been having hypoglycemia at her facility. * Patient takes about 172 units/day (per medication list) - this translates into Lantus 43 BID; Novolog CF of 10 and CR of 3. Due to the hypoglycemia and NPO status, will reduce by 40% (consider 20% reduction for NPO status and additional 20% for hypoglycemia). This correlates to weight-based stress of 3 dosing. * For Lantus, will create a scale where it is possible to hold Lantus as well as give up to 30 units (slightly above weight-based stress of 3 dosing). For Novolog will give CF of 20 (slightly looser that weight-based stress of 3) PLAN FOR INPATIENT GLYCEMIC CONTROL: * Holding out-patient anti-diabetic meds while admitted. * Basal insulin: Lantus 40 units this AM, * PM Lantus based on scale as follows: -For BSG less than 140 - give 40 units -For BSG 140-180 - give 45 units -For BSG greater than 180 - give 50 units * Bolus insulin - loosened * NovoLog per scale ACHS or Q6hrs while NPO * Goal Range: Low 120 mg/dL - High 160 mg/dL * Correction Factor: 20 mg/dL/unit * Nutritional / Prandial insulin per carb ratio of 1 unit per 8 grams CHO consumed DISCHARGE RECOMMENDATIONS: * HbA1c= 7.4% This indicates acceptable glycemic control. Would continue home doses of Lantus and Novolog with meals if patient does not report hypoglycemic episodes and diet remains stable.
--- NOTE | 2018-11-29 15:11 | Hospitalist Progress Note ---
Date of Service November 29, 2018 Assessment & Plan (1) Acute cerebrovascular accident (CVA): Presented with left-sided weakness. CT head suggested right thalamic infarct. CTA cervical and intracranial vessels did not show any dissection, aneurysm, significant stenosis. MRI brain demonstrated acute vs subacute ischemic infarct right centrum semiovale. Cardiac rhythm NSR. Echo - no apparent intracardiac thrombi or right to left shunt. Neuro consulted. Continued antiplatelet therapy with aspirin and clopidogrel recommended. LDL = 81; continue statin. 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 Strict aspiration precautions / assistance with diet. Fall precautions. (2) Altered mental status: Worsening confusion at time of admission. Underlying dementia. Confusion probable metabolic encephalopathy / delirium due to UTI and/or secondary to stroke. Improved. (3) Urinary tract infection: (present on admission) Urine culture growing E coli. Received IV ceftriaxone. (4) Decubitus ulcer: Stage 2 decubitus ulcer left buttock. (present on admission) Wound Care Nursing consulted. Local care. Reposition at least q 2 hrs. (5) CAD (coronary artery disease): Continue aspirin, clopidogrel, carvedilol, statin. (6) Hypertension: Continue carvedilol. (7) Lung nodule < 6cm on CT: Small pulmonary nodules 4 mm incidentally noted on CT. Further evaluation not indicated at this time due to acute stroke and other co- morbidities. (8) Diabetes mellitus type 2 with complications: Generally fairly-well controlled. Hgb A1C = 7.4. FBS = 109. Lantus / Novolog per protocol. (9) Dyslipidemia: LDL = 81. Continue high-intensity atorvastatin. (10) Dementia: Monitor for delirium. (11) DVT prophylaxis: SCD's. Transition to SQ heparin. (12) Do not resuscitate status: As noted. (13) Discharge planning issues: Arrangements being made for return to [facility] with skilled care. Daughter given update by phone. Subjective Recheck for stroke and other problems. Pt seen in her room around 1250. More alert & more conversant over past 2 days. Still confused. Persistent left-sided weakness. Tolerating diet with assistance without overt signs of aspiration. No fever. No chest pain. No cough or SOB. No nausea or vomiting. No diarrhea. Estes cath removed. Physical Exam Vital Signs (Past 24 Hours): Last Vital Signs Temp 37.0 C 03/22/19 12:17 Pulse 89 11/29/18 12:17 Resp 18 11/29/18 12:17 BP 150/75 H 11/29/18 12:17 Pulse Ox 91 11/29/18 12:17 Constitutional: no acute distress Respiratory: no respiratory distress Auscultation: lungs clear to auscultation bilaterally Cardiovascular: Rate/Rhythm: regular rate and regular rhythm Vessels: no JVD Extremities: + edema (trace pretibial); no calf tenderness Gastrointestinal (Abdomen): normal bowel sounds, soft, nontender, no hepatosplenomegaly Musculoskeletal: Extremities: + abnormal strength (LUE flaccid + LLE 1/5 distally); no cyanosis Skin: no rashes, warm and dry Neurologic: + confused more alert left facial palsy dysarthria LUE- flaccid LLE- 1/5 distally Psychiatric: Orientation: oriented to person (1) CAD (coronary artery disease) Coronary Disease-Associated Artery/Lesion type: [place] artery [place] vs. transplanted heart: [place] heart Associated angina: without angina Qualified Code(s): I25.10 - Atherosclerotic heart disease of [place] coronary artery without angina pectoris (2) Hypertension Hypertension type: essential hypertension Qualified Code(s): I10 - Essential (primary) hypertension (3) Dementia Dementia type: unspecified type Dementia behavioral disturbance: without behavioral disturbance Qualified Code(s): F03.90 - Unspecified dementia without behavioral disturbance
--- NOTE | 2018-11-29 15:24 | Discharge Summary ---
Date of Service Date of admission: 11/26/18 Date of discharge: 11/29/18 Admission HPI Per Admitting Provider This is a 73 yr old F with significant PMH of CAD hx of stents in past, T2DM, HTN, HLD, Dementia, Gout, monoclonal gammopathy, depression, fibromyalgia who presents to [facility] ED secondary to L sided weakness x 1 day. Patient resides at [facility] and daughter is at bedside. Daughter states she has been a resident at [facility] since Jul 2018 after being hospitalized at [facility]. Prior to hospitalization she was driving and caring for own self but did have early signs of dementia. She was deemed incompetent and referred to [facility] for group home. While she was receiving therapy at [facility] she remained bed bound per daughter but was able to feed her self and read magazines. Unfortunately it was noted by family last evening she was exhibiting L sided weakness and this was reported to nursing staff. Symptoms continued this a.m. and was evaluated by Rosangela Rodgers PA-C where she was noted to have L sided facial droop, difficulty drinking from straw and gripping on left side. Given change in condition she was referred to ED. Patient is able to state her name but otherwise not oriented. Denies Pain. ROS is unreliable/unobtainable given current state. Admission Exam Per Admitting Provider Constitutional: WD/WN, vitals as above + morbidly obese and cooperative Eyes: PERRL, conjunctivae normal, anicteric sclerae ENMT: external ear and nose normal, oropharynx normal Throat: uvula midline L facial droop Neck: trachea midline, no thyromegaly Respiratory: normal respiratory effort, lungs clear to auscultation Cardiovascular: RRR, no murmur, no edema Gastrointestinal (Abdomen): normal bowel sounds, soft, nontender, no hepatosplenomegaly Musculoskeletal: Extremities: + limited ROM of upper extremity (able to abduct/adduct at shoulder but weakness 3/5 with absent cryptologist) Left and + limited ROM of lower extremity (LLE able to dorsi/plantarflex but minimal flexion/ext hip) Left Skin: no rashes, warm and dry Neurologic: awake and + confused Speech / Cognition: + abnormal speech Cranial Nerves: tongue midline and able to rotate head bilaterally L facial droop Psychiatric: Orientation: alert and oriented to person (self only) Affect: + depressed affect Principal Diagnosis ischemic stroke right centrum ovale UTI E coli - (present on admission) Discharge Data Allergies Allergy/AdvReac Type Severity Reaction Status Date / Time etodolac Allergy Unknown . Verified 11/26/18 12:01 tolmetin Allergy Unknown . Verified 11/26/18 12:01 adhesive Allergy Unknown Unverified 11/26/18 12:01 ciprofloxacin [From Cipro] Allergy Unknown Unverified 11/26/18 12:01 iodine Allergy Unknown Unverified 11/26/18 12:01 Consultations 11/26/18 12:56 ED Decision to Admit Stat 11/26/18 13:40 Consult Neurology Routine 11/26/18 15:02 Consult Case Management - Discharge Planning Routine Ordered Studies 11/26/18 11:31 CT angio head wo/w Stat CT angio neck with con Stat 11/26/18 13:46 US venous doppler LE BI Routine 11/26/18 15:02 MR brain wo con Routine Hospital Course (1) Acute cerebrovascular accident (CVA): Presented with left-sided weakness. CT head suggested right thalamic infarct. CTA cervical and intracranial vessels did not show any dissection, aneurysm, significant stenosis. MRI brain demonstrated acute vs subacute ischemic infarct right centrum semiovale. Cardiac rhythm NSR. Echo - no apparent intracardiac thrombi or right to left shunt. Neuro consulted. Continued antiplatelet therapy with aspirin and clopidogrel recommended. LDL = 81; continue statin. 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 Strict aspiration precautions / assistance with diet. Fall precautions. (2) Altered mental status: Worsening confusion at time of admission. Underlying dementia. Confusion probable metabolic encephalopathy / delirium due to UTI and/or secondary to stroke. Improved. (3) Urinary tract infection: (present on admission) Urine culture growing E coli. Received IV ceftriaxone x 4 doses - should be adequate Rx for uncomplicated UTI. (4) Decubitus ulcer: Stage 2 decubitus ulcer left buttock. (present on admission) Wound Care Nursing consulted. Local care. Reposition at least q 2 hrs. (5) CAD (coronary artery disease): Continue aspirin, clopidogrel, carvedilol, statin. (6) Hypertension: Continue carvedilol. (7) Lung nodule < 6cm on CT: Small pulmonary nodules 4 mm incidentally noted on CT. Further evaluation not indicated at this time due to acute stroke and other co- morbidities. (8) Diabetes mellitus type 2 with complications: Generally fairly-well controlled. Hgb A1C = 7.4. FBS = 109. Lantus / Novolog per protocol. (9) Dyslipidemia: LDL = 81. Continue high-intensity atorvastatin. (10) Dementia: Monitor for delirium. (11) DVT prophylaxis: SCD's. Transition to SQ heparin. (12) Do not resuscitate status: As noted. (13) Discharge planning issues: Arrangements being made for return to [facility] with skilled care. Daughter given update by phone. Total Time Total Time Spent Total Time Spent (In Minutes): 50 Discharge Plan Discharge Items Patient Disposition[facility] Reason For Visit: CVA Discharge Diagnosis: ischemic stroke right centrum semiovale Condition: Fair Discharge Goals: Decrease discomfort, Improve disease control and Improve function Activity: As commented below Activity Comment: as tolerated with assistance Non-emergency contact: Primary Care Provider, Hospitalist and Neurologist Call non-emergency contact if: you have any medication questions, your symptoms worsen and your temperature is above 101 Follow-up/Referrals: Kyler Miguel MD [Primary Care Provider] - Diet: Carb Consistent or DM2 and Heart Healthy Diet Texture: Dental soft (bite-sized) Addtl Provider Instructions: aspiration precautions - please note TECHNICAL TESTING ENGINEER recs assistance with food and beverages fall precautions skin precautions reposition at least q 2 hours delirium precautions Please check BMP weekly until stable, then as clincically indicated. Fingerstick blood sugars with meals and at bed time. Thank you for receiving this patient in transfer. Please call if you have any questions. Jonas Devi Prescriptions: New atorvastatin 40 mg Tablet 40 mg PO HS Qty: 30 RF: 5 heparin (porcine) 5,000 unit/mL solution 5,000 units SQ Q12H Qty: 10 RF: 0 Continued multivitamin Tablet 1 tab PO DAILY RF: 0 ascorbic acid (vitamin C) [Vitamin C] 1,000 mg Tablet 1,000 mg PO DAILY RF: 0 Lantus U-100 Insulin 100 unit/mL Solution 50 unit SUBCUT BID RF: 0 lisinopril 20 mg Tablet 20 mg PO DAILY RF: 0 sennosides-docusate sodium [Senna-S] 8.6-50 mg Tablet 2 tab PO BID RF: 0 dextrose [Glucose Gel] 40 % Gel 1 dose PO DIRECTED PRN (Reason: Unknown) RF: 0 clopidogrel [Plavix] 75 mg Tablet 75 mg PO DAILY RF: 0 allopurinol 100 mg Tablet 200 mg PO DAILY RF: 0 acetaminophen [Tylenol Extra Strength] 500 mg Tablet 500 mg PO QID RF: 0 acetaminophen 500 mg Tablet 500 mg PO Q6H PRN (Reason: Pain) RF: 0 carvedilol [Coreg] 3.125 mg Tablet 3.125 mg PO BID RF: 0 methenamine hippurate 1 gram Tablet 1 g PO BID RF: 0 citalopram 20 mg Tablet 20 mg PO DAILY RF: 0 magnesium hydroxide [Milk of Magnesia] 400 mg/5 mL Suspension 30 ml PO DAILY PRN (Reason: Constipation) RF: 0 Novolog U-100 Insulin aspart 100 unit/mL Solution 20 unit SUBCUT QPM RF: 0 Novolog U-100 Insulin aspart 100 unit/mL Solution 26 unit SUBCUT BIDM RF: 0 bisacodyl [Dulcolax (bisacodyl)] 10 mg Suppository 10 mg MA DAILY PRN (Reason: Constipation) RF: 0 pantoprazole [Protonix] 40 mg Tablet,Delayed Release (Dr/Ec) 40 mg PO DAILY RF: 0 promethazine 25 mg Tablet 25 mg PO Q6H PRN (Reason: nausea, vomiting) RF: 0 Fleet Enema 19-7 gram/118 mL Enema 118 ml MA DAILY PRN (Reason: Constipation) RF: 0 Glucagon Emergency Kit (human) 1 mg Recon Soln 1 dose subcut DIRECTED RF: 0 aspirin 81 mg Tablet,Chewable 162 mg PO DAILY RF: 0 folic acid 1 mg Tablet 1 mg PO DAILY RF: 0 cholecalciferol (vitamin D3) [Vitamin D3] 1,000 unit Tablet 1,000 unit PO DAILY RF: 0 Refresh Celluvisc 1 % Dropperette,Gel 1 drp OPHTHALMIC (EYE) TID RF: 0 Calmoseptine 0.44-20.6 % Ointment 1 applic TOPICAL TID RF: 0 Calmoseptine 0.44-20.6 % Ointment 1 applic TOPICAL DAILY PRN (Reason: soiling) RF: 0 Discontinued simvastatin 40 mg Tablet 40 mg PO HS RF: 0 Stand-Alone Forms: [facility] Skilled Items Patient informed of condition?: Yes DNR: Yes Discharge Level of Care: Skilled Communicable Disease: No Discharge Prognosis: Improving Admission Data Admit Date/Time: 11/26/18 13:40 Attending Provider: Jonas Devi Admit Provider: Justus Mckenzie Primary Care Provider: Kyler Miguel Other Providers: Yoel Huertas ; Tomi Ann ; Justus Mckenzie Service: Telemetry
== END 2018-11-29 17:26 | DRG 64 ==
LOC: ED 11:18 → SUATTDRO 13:40 → 2N 13:40

== ENCOUNTER 2018-12-08 17:00 | Inpatient (IN) ==
[2018-12-08] MEDS ORDERED: SODIUM CHLORIDE 0.9% 1000ML 1,000 ML IV ONE (17:16)
[2018-12-08 17:27] LABS: Basophils # (auto) 0.03 K/uL (0-0.2); Basophils % (auto) 0.4 %; Eosinophils # (auto) 0.35 K/uL (0-0.5); Eosinophils % (auto) 4.5 %; Hematocrit (blood only) 45.6 % (37-47); Hemoglobin 15.5 g/dL (12.0-16.0); Immature Granulocytes # (auto) 0.01 K/uL (0.00-0.02); Immature Granulocytes % (auto) 0.1 %; Lymphocytes # (auto) 1.24 K/uL (1.2-3.4); Lymphocytes % (auto) 15.9 %; Mean Corpuscular Volume 96.6 fL (80-100); Mean Platelet Volume 11.2 fL (7.4-10.4); Monocytes % (auto) 5.1 %; Neutrophils # (auto) 5.75 K/uL (1.4-6.5); Platelet Count 251 K/uL (130-400); RDW Standard Deviation 52.8 fL (36.4-46.3); Red Blood Count 4.72 M/uL (4.2-5.4); White Blood Count 7.78 K/uL (4.8-10.8)
[2018-12-08 17:38] LABS: INR 1.1 (0.9-1.1); Partial Thromboplastin Time 26.5 Seconds (21.0-31.0); Prothrombin Time 10.9 Seconds (9.0-12.0)
--- NOTE | 2018-12-08 18:10 | CT Scan Report ---
CT OF THE HEAD WITHOUT CONTRAST CLINICAL HISTORY: Altered mental status. COMPARISON STUDY: Head CT/CTA of the head and MRI of the brain January 26, 2019. CT DOSE: 537.48 mGy.cm TECHNIQUE: Helical axial images of the head were obtained without IV contrast. Automated exposure con trol was utilized for the study. A dose lowering technique was utilized adhering to the principles o f ALARA. FINDINGS: No acute intracranial hemorrhage, midline shift or mass effect is present. The ventricular system is stable. Basilar cisterns are patent. A 1.4 cm infarct within the right centrum semiovale ov elia has increased in extent since MRI of November 26, 2018. There may be a new 1.3 cm infarct within the periventricular left parietal lobe on axial image 16 of 28. There are no significant calvarial abnor malities. IMPRESSION: 1. No acute intracranial hemorrhage or mass effect. 2. Increase in extent of a 1.4 cm subacute infarct within the right centrum semiovale ovale since MRI of November 26, 2018. 3. Interval development of a possible additional 1.3 cm infarct within the periventricular left parie genie lobe since previous MRI. Electronically signed by: Te Ramirez M.D. 12/08/2018 6:09 PM
[2018-12-08] MEDS ORDERED: SODIUM CHLORIDE 0.9% 1000ML 1,000 ML IV SCH (18:15)
[2018-12-08 18:22] LABS: Alanine Aminotransferase 21 U/L (12-78); Albumin Level 3.1 gm/dl (3.4-5.0); Alkaline Phosphatase 61 U/L (45-117); BUN Creatinine Ratio 23.1 (10-20); Bilirubin,Total 0.7 mg/dl (0.2-1); Blood Urea Nitrogen 19 mg/dl (7-18); Calcium 9.5 mg/dl (8.5-10.1); Carbon Dioxide 28 mmol/L (21-32); Chloride 104 mmol/L (98-107); Est GFR (African American) 81.1; Glucose 144 mg/dl (70-99); Total Protein 7.1 gm/dl (6.4-8.2); Troponin I < 0.015 ng/ml (0-0.045)
[2018-12-08 18:42] LABS: Base Excess VBG 1.2 mEq/L; Oxygen Saturation VBG 73.8 %; pH VBG 7.31 (7.36-7.41)
--- NOTE | 2018-12-08 18:51 | XRay Report ---
XR chest 1V portable CLINICAL HISTORY: Altered mental status. COMPARISON STUDY: Chest radiograph November 26, 2018. FINDINGS: Right shoulder arthroplasty is incidentally noted. Cardiomegaly is unchanged. There is no p neumothorax. There is a possible left pleural effusion. There is no evidence for pulmonary edema. Page arent hazy left basilar opacity is noted. IMPRESSION: Apparent hazy left basilar opacity with a possible small left pleural effusion. Artifac t is favored however a pleural effusion with atelectasis/consolidation could appear similar. Electronically signed by: Te Ramirez M.D. 12/08/2018 6:50 PM
[2018-12-08 18:55] LABS: Appearance Urine Cloudy (Clear); Bacteria Urine Automated Negative (Negative); Bilirubin Urine Negative (Negative); Blood Urine Negative (Negative); Color Urine Dark Yellow; Epithelial Cell Urine Auto >30 /lpf (0-5); Glucose Urine UA Negative (Negative); Ketones Urine Trace (Negative); Leukocyte Esterase Urine 2+ (Negative); Nitrite Urine Negative (Negative); Protein Urine 1+ (Negative); RBC Urine Automated 0-4 /hpf (0-4); Specific Gravity Urine 1.027 (1.000-1.030); Urobilinogen Urine Negative (Negative); WBC Urine Automated >30 /hpf (0-5)
[2018-12-08] MEDS ORDERED: CEFEPIME 1,000 MG in SYRINGE 0 ML IV STA (18:59)
[2018-12-08] MEDS ORDERED: VANCOMYCIN CONSULT ACTIVE PRN (18:59)
[2018-12-08] MEDS ORDERED: VANCOMYCIN HCL 1,000 MG/270 ML BAG IV STA (18:59)
[2018-12-08 19:03] LABS: Aspartate Aminotransferase 23 U/L (15-37); Bilirubin Direct 0.2 mg/dl (0-0.2); Sodium 140 mmol/L (136-145)
--- NOTE | 2018-12-08 19:50 | History & Physical Report ---
Date of Service December 08, 2018 Assessment & Plan (1) Altered mental status: Sudden change of neuro status this afternoon, associated with hypoglycemia. Findings on CT of head raise possibility of a new stroke as discussed below. Chest x-ray showed a possible density at the left base, but no definite infiltrates. Urinalysis showed leukocyte esterase and WBCs, but many epithelial cells. Possible pneumonia. Possible UTI. Does not appear to be septic, but will receive empiric broad-spectrum antibiotics pending culture results. (2) Hypoglycemia: Blood sugar was 40 this afternoon at the skilled nursing. Family reports variable oral intake. Received glucagon before being transported to the emergency room. Blood sugar still relatively low. Primary IV with 5% dextrose. Will hold Lantus until blood sugars have stabilized. (3) Hypotension: Blood pressure on arrival to ED was 85/47 and improved with fluid resuscitation. Does not appear to be septic. Hypotension could be secondary to volume depletion. Maintain adequate hydration. Follow hemodynamics. (4) Cerebrovascular disease: Recent ischemic stroke of the right centrum semiovale with residual left hemiparesis. CT this evening demonstrates apparent extension of the previous noted infarct as well as interval development of a possible ischemic infarct within the left parietal lobe. Not a candidate for TPA due to (1) recent stroke and (2) hypoglycemia. We will follow stroke protocol with n.p.o. status, neurochecks, PT, OT, [employer] evaluations. Antiplatelet therapy with rectal aspirin until able to resume oral medications. Consult Neurology for their input. (5) CAD (coronary artery disease): Serum troponin normal. Carvedilol will be held due to n.p.o. status. IV metoprolol until oral medications can be resumed. (6) Diabetes mellitus type 2 with complications: Hypoglycemic today as discussed above. Hgb A1C 7.4 on 11/26. PO intake has been variable. Follow BSG's. Titrate insulin therapy. (7) Dementia: May have Alzheimer's disease, vascular dementia, or a combination of the two. Monitor for delirium. (8) Decubitus ulcer: Present on admission. Local care. Reposition. Consult Wound Care Nursing. (9) Do not resuscitate status: Per previous discussions. (10) DVT prophylaxis: SQ heparin. (11) Discharge planning issues: Anticipated return to [facility]. History of Present Illness Chief Complaint: hypoglycemia, altered mental status Primary Care Provider: Kyler Miguel 73-year-old female followed by Dr. Miguel at [facility]. History of ischemic heart disease, cerebrovascular disease, diabetes, dementia, and other problems as noted. Hospitalized at [facility] on 11/26/18 with an ischemic stroke involving the right centrum semiovale. She had a persistent left hemiparesis that was fairly dense. Evaluated by PT, OT, speech therapy. Oral intake was deemed to be safe as long as patient was alert and aspiration precautions were followed. Continuation of antiplatelet therapy with aspirin and clopidogrel recommended. Treated for E coli UTI with intravenous ceftriaxone. Returned to [facility] on 11/29/18. Experienced some vomiting last week. Upper GI series was performed on 12/05/18 and demonstrated severe gastroesophageal reflux and a small hiatal hernia. Daughter reports that oral intake has been fairly good with assistance, but sometimes she does not complete her meals. Her left-sided weakness has improved since returning to the skilled nursing. Daughter visited this morning and patient seemed to be doing relatively well. Noted to be confused around 1500 this afternoon. Blood sugar was found to be 40. She received glucagon. Transported to ED by EMS. Patient unable to provide any additional history because of her dementia and acute illness. Allergies Allergy/AdvReac Type Severity Reaction Status Date / Time etodolac Allergy Unknown . Verified 12/08/18 18:19 tolmetin Allergy Unknown . Verified 12/08/18 18:19 adhesive Allergy Unknown Unverified 12/08/18 18:19 ciprofloxacin [From Cipro] Allergy Unknown Unverified 12/08/18 18:19 iodine Allergy Unknown Unverified 12/08/18 18:19 Home Medications Home Medications Medication Instructions Recorded Confirmed Type Calmoseptine 1 applic TOPICAL DAILY PRN 11/26/18 12/08/18 History Calmoseptine 1 applic TOPICAL TID 11/26/18 12/08/18 History Fleet Enema [address] DAILY PRN 11/26/18 12/08/18 History Glucagon Emergency Kit (human) 1 dose SUBCUT DIRECTED 11/26/18 12/08/18 History Lantus U-100 Insulin 50 unit SUBCUT BID 11/26/18 12/08/18 History Novolog U-100 Insulin aspart 20 unit SUBCUT QPM 11/26/18 12/08/18 History Novolog U-100 Insulin aspart 30 unit SUBCUT BIDM 11/26/18 12/08/18 History Refresh Celluvisc 1 drp OPHTHALMIC (EYE) TID 11/26/18 12/08/18 History acetaminophen 500 mg PO Q6H PRN 11/26/18 12/08/18 History acetaminophen [Tylenol Extra 500 mg PO QID 11/26/18 12/08/18 History Strength] allopurinol 200 mg PO QAM 11/26/18 12/08/18 History ascorbic acid (vitamin C) [Vitamin 1,000 mg PO QAM 11/26/18 12/08/18 History C] aspirin 162 mg PO QAM 11/26/18 12/08/18 History bisacodyl [Dulcolax (bisacodyl)] [address] DAILY PRN 11/26/18 12/08/18 History carvedilol [Coreg] 3.125 mg PO BID 11/26/18 12/08/18 History cholecalciferol (vitamin D3) 1,000 unit PO QAM 11/26/18 12/08/18 History [Vitamin D3] citalopram 20 mg PO QAM 11/26/18 12/08/18 History clopidogrel [Plavix] 75 mg PO QAM 11/26/18 12/08/18 History dextrose [Glucose Gel] 1 dose PO DIRECTED PRN 11/26/18 12/08/18 History folic acid 1 mg PO QAM 11/26/18 12/08/18 History lisinopril 20 mg PO QAM 11/26/18 12/08/18 History magnesium hydroxide [Milk of 30 ml PO DAILY PRN 11/26/18 12/08/18 History Magnesia] methenamine hippurate 1 g PO BIDM 11/26/18 12/08/18 History multivitamin 1 tab PO QAM 11/26/18 12/08/18 History pantoprazole [Protonix] 40 mg PO QAM 11/26/18 12/08/18 History promethazine 25 mg PO Q6H PRN 11/26/18 12/08/18 History sennosides-docusate sodium 2 tab PO BID 11/26/18 12/08/18 History [Senna-S] atorvastatin 40 mg PO HS #30 tab 03/22/19 03/31/19 Rx heparin (porcine) 5,000 units SQ Q12H #10 ml 11/29/18 12/08/18 Rx Past Med/Surg History Medical History Cerebrovascular disease (Chronic) Do not resuscitate status (Chronic) Diabetes mellitus type 2 with complications (Chronic) HLD (hyperlipidemia) (Chronic) Dementia (Chronic) Depression (Chronic) CAD (coronary artery disease) (Chronic) PVD (peripheral vascular disease) (Chronic) IBS (irritable bowel syndrome) (Chronic) Hypertension (Chronic) Surgical History History of partial colectomy (Chronic) History of tonsillectomy and adenoidectomy (Chronic) History of cholecystectomy (Chronic) History of shoulder surgery (Chronic) History of percutaneous coronary intervention (Chronic) Family History Mother Heart disease Diabetes Brother Colorectal cancer Brother Lung cancer Daughter Diabetes Other Family history non-contributory Social History Preferred Language: Frisian Communication Ability: Impaired Communication Ability Comment: Slightly impaired d/t hx of dementia Filament Shaper Required: No Beliefs That Will Affect Care: Sabianism Current Living Situation: Residential Current Living Situation Comment: [facility] other: Bed Bound Feels Safe at Home: Yes Smoking Status: Former smoker Hx Alcohol Use: No Hx Substance Use: No Review of Systems Unobtainable due to cognitive status Physical Exam Vital Signs (Past 24 Hours): Last Vital Signs Temp 34.3 C L 12/08/18 18:30 Pulse 63 12/08/18 19:28 Resp 20 12/08/18 19:28 BP 114/43 L 12/08/18 19:28 Pulse Ox 100 12/08/18 19:28 Constitutional: WD/WN, vitals as above no acute distress Eyes: PERRL, conjunctivae normal, anicteric sclerae ENMT: external ear and nose normal, oropharynx normal Neck: trachea midline, no thyromegaly Respiratory: no respiratory distress and no labored breathing Auscultation: + rhonchi (few) Cardiovascular: Rate/Rhythm: regular rate Heart Sounds: no gallop, no murmur and no cardiac rub Vessels: no JVD Extremities: normal capillary refill and + edema (trace pretibial); no calf tenderness Gastrointestinal (Abdomen): normal bowel sounds, soft, nontender, no hepatosplenomegaly Musculoskeletal: Head/Neck/Chest: neck supple Extremities: + abnormal strength (patient unable to follow commands; recent left hemiparesis), no cyanosis and no clubbing Skin: no rashes, warm and dry no erythema and no pallor Neurologic: minimally responsive PERRL left facial palsy unable to follow commands for assessment of motor strength patellar DTR's 1/2 blat left plantar reflex equivocally upgoing Psychiatric: Orientation: + not alert and + not oriented x 3 Lymphatic: no cervical lymphadenopathy Results & Data Laboratory Results Laboratory Results - last 24 hr 12/08/18 12/08/18 12/08/18 16:41 16:41 16:41 WBC 7.78 RBC 4.72 Hgb 15.5 Hct 45.6 MCV 96.6 MCH 32.8 MCHC 34.0 RDW Std Deviation 52.8 H RDW Coeff of Dougie 15.0 H Plt Count 251 MPV 11.2 H Immature Gran % (Auto) 0.1 Neut % (Auto) 74.0 Lymph % (Auto) 15.9 [place] % (Auto) 5.1 Eos % (Auto) 4.5 Baso % (Auto) 0.4 Immature Gran # (Auto) 0.01 Neut # (Auto) 5.75 Lymph # (Auto) 1.24 [place] # (Auto) 0.40 Eos # (Auto) 0.35 Baso # (Auto) 0.03 PT 10.9 INR 1.1 APTT 26.5 PTT Ratio 1.0 VBG pH VBG pCO2 VBG pO2 VBG HCO3 VBG O2 Saturation VBG Base Excess Barometric Pressure Sodium 140 Potassium 4.0 Chloride 104 Carbon Dioxide 28 Anion Gap 8.0 BUN 19 H Creatinine 0.83 Est Cr Clr Drug Dosing Not Reportable Est GFR ( Amer) 81.1 Est GFR (Non-Af Amer) 70.0 BUN/Creatinine Ratio 23.1 H Glucose 144 H POC Glucose Lactate Calcium 9.5 Total Bilirubin 0.7 Direct Bilirubin 0.2 AST 23 ALT 21 Alkaline Phosphatase 61 Ammonia Troponin I < 0.015 Total Protein 7.1 Albumin 3.1 L Lipase 56 L Urine Color Urine Appearance Urine pH Ur Specific [place] Urine Protein Urine Glucose (UA) Urine Ketones Urine Blood Urine Nitrite Urine Bilirubin Urine Urobilinogen Ur Leukocyte Esterase Urine WBC (Auto) Urine RBC (Auto) U Hyaline Cast (Auto) U Epithel Cells (Auto) Urine Bacteria (Auto) Ur Renal Epithelial Cell Urine Yeast 12/08/18 12/08/18 12/08/18 17:05 18:21 18:26 WBC RBC Hgb Hct MCV MCH MCHC RDW Std Deviation RDW Coeff of Dougie Plt Count MPV Immature Gran % (Auto) Neut % (Auto) Lymph % (Auto) [place] % (Auto) Eos % (Auto) Baso % (Auto) Immature Gran # (Auto) Neut # (Auto) Lymph # (Auto) [place] # (Auto) Eos # (Auto) Baso # (Auto) PT INR APTT PTT Ratio VBG pH VBG pCO2 VBG pO2 VBG HCO3 VBG O2 Saturation VBG Base Excess Barometric Pressure Sodium Potassium Chloride Carbon Dioxide Anion Gap BUN Creatinine Est Cr Clr Drug Dosing Est GFR ( Amer) Est GFR (Non-Af Amer) BUN/Creatinine Ratio Glucose POC Glucose 176 H 185 H Lactate Calcium Total Bilirubin Direct Bilirubin AST ALT Alkaline Phosphatase Ammonia 13.3 Troponin I Total Protein Albumin Lipase Urine Color Urine Appearance Urine pH Ur Specific [place] Urine Protein Urine Glucose (UA) Urine Ketones Urine Blood Urine Nitrite Urine Bilirubin Urine Urobilinogen Ur Leukocyte Esterase Urine WBC (Auto) Urine RBC (Auto) U Hyaline Cast (Auto) U Epithel Cells (Auto) Urine Bacteria (Auto) Ur Renal Epithelial Cell Urine Yeast 12/08/18 12/08/18 12/08/18 18:26 18:26 18:37 WBC RBC Hgb Hct MCV MCH MCHC RDW Std Deviation RDW Coeff of Dougie Plt Count MPV Immature Gran % (Auto) Neut % (Auto) Lymph % (Auto) [place] % (Auto) Eos % (Auto) Baso % (Auto) Immature Gran # (Auto) Neut # (Auto) Lymph # (Auto) [place] # (Auto) Eos # (Auto) Baso # (Auto) PT INR APTT PTT Ratio VBG pH 7.31 L VBG pCO2 59 H VBG pO2 43 VBG HCO3 29 VBG O2 Saturation 73.8 VBG Base Excess 1.2 Barometric Pressure 731.6 Sodium Potassium Chloride Carbon Dioxide Anion Gap BUN Creatinine Est Cr Clr Drug Dosing Est GFR ( Amer) Est GFR (Non-Af Amer) BUN/Creatinine Ratio Glucose POC Glucose Lactate 1.6 Calcium Total Bilirubin Direct Bilirubin AST ALT Alkaline Phosphatase Ammonia Troponin I Total Protein Albumin Lipase Urine Color Dark Yellow Urine Appearance Cloudy H Urine pH 5.0 Ur Specific [place] 1.027 Urine Protein 1+ H Urine Glucose (UA) Negative Urine Ketones Trace H Urine Blood Negative Urine Nitrite Negative Urine Bilirubin Negative Urine Urobilinogen Negative Ur Leukocyte Esterase 2+ H Urine WBC (Auto) >30 H Urine RBC (Auto) 0-4 U Hyaline Cast (Auto) 5-10 H U Epithel Cells (Auto) >30 H Urine Bacteria (Auto) Negative Ur Renal Epithelial Cell Not Reportable Urine Yeast Not Reportable 12/08/18 12/08/18 12/08/18 23:03 23:05 23:54 WBC RBC Hgb Hct MCV MCH MCHC RDW Std Deviation RDW Coeff of Dougie Plt Count MPV Immature Gran % (Auto) Neut % (Auto) Lymph % (Auto) [place] % (Auto) Eos % (Auto) Baso % (Auto) Immature Gran # (Auto) Neut # (Auto) Lymph # (Auto) [place] # (Auto) Eos # (Auto) Baso # (Auto) PT INR APTT PTT Ratio VBG pH VBG pCO2 VBG pO2 VBG HCO3 VBG O2 Saturation VBG Base Excess Barometric Pressure Sodium Potassium Chloride Carbon Dioxide Anion Gap BUN Creatinine Est Cr Clr Drug Dosing Est GFR ( Amer) Est GFR (Non-Af Amer) BUN/Creatinine Ratio Glucose POC Glucose 61 L* 63 L* 111 H Lactate Calcium Total Bilirubin Direct Bilirubin AST ALT Alkaline Phosphatase Ammonia Troponin I Total Protein Albumin Lipase Urine Color Urine Appearance Urine pH Ur Specific [place] Urine Protein Urine Glucose (UA) Urine Ketones Urine Blood Urine Nitrite Urine Bilirubin Urine Urobilinogen Ur Leukocyte Esterase Urine WBC (Auto) Urine RBC (Auto) U Hyaline Cast (Auto) U Epithel Cells (Auto) Urine Bacteria (Auto) Ur Renal Epithelial Cell Urine Yeast Diagnostic Findings PORTABLE CHEST X-RAY FINDINGS: Right shoulder arthroplasty is incidentally noted. Cardiomegaly is unchanged. There is no pneumothorax. There is a possible left pleural effusion. There is no evidence for pulmonary edema. Apparent hazy left basilar opacity is noted. IMPRESSION: Apparent hazy left basilar opacity with a possible small left pleural effusion. Artifact is favored however a pleural effusion with atelectasis/consolidation could appear similar. Electronically signed by: Te Ramirez M.D. 12/08/2018 6:[address] HEAD FINDINGS: No acute intracranial hemorrhage, midline shift or mass effect is present. The ventricular system is stable. Basilar cisterns are patent. A 1.4 cm infarct within the right centrum semiovale ovale has increased in extent since MRI of November 26, 2018. There may be a new 1.3 cm infarct within the periventricular left parietal lobe on axial image 16 of 28. There are no significant calvarial abnormalities. IMPRESSION: 1. No acute intracranial hemorrhage or mass effect. 2. Increase in extent of a 1.4 cm subacute infarct within the right centrum semiovale ovale since MRI of November 26, 2018. 3. Interval development of a possible additional 1.3 cm infarct within the periventricular left parietal lobe since previous MRI. Electronically signed by: Te Ramirez M.D. 12/08/2018 6:09 PM Code Status & VTE Plan Code Status DNR VTE Prophylaxis Plan VTE Prophylaxis will be ordered: Yes (1) CAD (coronary artery disease) Associated angina: without angina Coronary Disease-Associated Artery/Lesion type: [place] artery [place] vs. transplanted heart: [place] heart Qualified Code(s): I25.10 - Atherosclerotic heart disease of [place] coronary artery without angina pectoris (2) Dementia Dementia behavioral disturbance: without behavioral disturbance Dementia type: unspecified type Qualified Code(s): F03.90 - Unspecified dementia without behavioral disturbance
[2018-12-08] MEDS ORDERED: DEXTROSE 50% 50 ML SYRINGE IV PRN (23:15)
[2018-12-08] MEDS ORDERED: GLUCAGON FOR INJ 1 MG VIAL IM PRN (23:15)
[2018-12-08] MEDS ORDERED: GLUCOSE 40% GEL 15 GM TUBE PO PRN (23:15)
[2018-12-08] MEDS ORDERED: CARBOHYDRATES FOR HYPOGLYCEMIA PO PRN (23:15)
[2018-12-08] MEDS ORDERED: GLUCOSE 10 TABS/TUBE PO PRN (23:15)
[2018-12-08] MEDS: D5W AND LACTATED RINGERS 1,000 ML IV SCH (23:15)
[2018-12-08] MEDS ORDERED: PHARMACIST DISCHARGE MED REC CONSULT PRN (23:31)
--- NOTE | 2018-12-09 00:37 | Emergency Department Note ---
Entered by Guille Soto acting as a scribe for History of Present Illness General Chief complaint: Hypoglycemia Time Seen by Provider: 12/08/18 17:09 Source: family and EMS Mode of arrival: EMS History of Present Illness Provider complaint: Hypoglycemia Onset (ago): hour(s) 3 Quality: + other (Hypoglycemia ) Patient is a 73 year old female who presents herself to the ER via EMS with complains of hypoglycemia beginning at 1500 today. Patient has dementia. 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 Patient lives at a [facility] facility and at 1500 noticed the patients blood sugar to be at a value of 40. She was given emergency glucagon at the facility and after one hour staff called EMS due to patients prior history of having a stroke. EMS reports the patient was able to state her last name. Daughter is accompanying the patient and states the patient has dementia. Upon communication with the patient she is unresponsive and not able to verbalize anything. It is important to note the patient has DNR medical order placed. HPI is limited due to patients inability to communicate. Home Medications Home Medications Medication Instructions Recorded Confirmed Type Calmoseptine 1 applic TOPICAL DAILY PRN 11/26/18 12/08/18 History Calmoseptine 1 applic TOPICAL TID 11/26/18 12/08/18 History Fleet Enema 118 ml IA DAILY PRN 11/26/18 12/08/18 History Glucagon Emergency Kit (human) 1 dose SUBCUT DIRECTED 11/26/18 12/08/18 History Lantus U-100 Insulin 50 unit SUBCUT BID 11/26/18 12/08/18 History Novolog U-100 Insulin aspart 20 unit SUBCUT QPM 11/26/18 12/08/18 History Novolog U-100 Insulin aspart 30 unit SUBCUT BIDM 11/26/18 12/08/18 History Refresh Celluvisc 1 drp OPHTHALMIC (EYE) TID 11/26/18 12/08/18 History acetaminophen 500 mg PO Q6H PRN 11/26/18 12/08/18 History acetaminophen [Tylenol Extra 500 mg PO QID 11/26/18 12/08/18 History Strength] allopurinol 200 mg PO QAM 11/26/18 12/08/18 History ascorbic acid (vitamin C) [Vitamin 1,000 mg PO QAM 11/26/18 12/08/18 History C] aspirin 162 mg PO QAM 11/26/18 12/08/18 History bisacodyl [Dulcolax (bisacodyl)] 10 mg IA DAILY PRN 11/26/18 12/08/18 History carvedilol [Coreg] 3.125 mg PO BID 11/26/18 12/08/18 History cholecalciferol (vitamin D3) 1,000 unit PO QAM 11/26/18 12/08/18 History [Vitamin D3] citalopram 20 mg PO QAM 11/26/18 12/08/18 History clopidogrel [Plavix] 75 mg PO QAM 11/26/18 12/08/18 History dextrose [Glucose Gel] 1 dose PO DIRECTED PRN 11/26/18 12/08/18 History folic acid 1 mg PO QAM 11/26/18 12/08/18 History lisinopril 20 mg PO QAM 11/26/18 12/08/18 History magnesium hydroxide [Milk of 30 ml PO DAILY PRN 11/26/18 12/08/18 History Magnesia] methenamine hippurate 1 g PO BIDM 11/26/18 12/08/18 History multivitamin 1 tab PO QAM 11/26/18 12/08/18 History pantoprazole [Protonix] 40 mg PO QAM 11/26/18 12/08/18 History promethazine 25 mg PO Q6H PRN 11/26/18 12/08/18 History sennosides-docusate sodium 2 tab PO BID 11/26/18 12/08/18 History [Senna-S] atorvastatin 40 mg PO HS #30 tab 11/29/18 12/08/18 Rx heparin (porcine) 5,000 units SQ Q12H #10 ml 11/29/18 12/08/18 Rx Allergies Allergy/AdvReac Type Severity Reaction Status Date / Time etodolac Allergy Unknown . Verified 12/08/18 18:19 tolmetin Allergy Unknown . Verified 12/08/18 18:19 adhesive Allergy Unknown Unverified 12/08/18 18:19 ciprofloxacin [From Cipro] Allergy Unknown Unverified 12/08/18 18:19 iodine Allergy Unknown Unverified 12/08/18 18:19 Past Med/Surg History Medical History HLD (hyperlipidemia) (Chronic) Dementia (Chronic) Depression (Chronic) CAD (coronary artery disease) (Chronic) PVD (peripheral vascular disease) (Chronic) IBS (irritable bowel syndrome) (Chronic) Diabetes (Chronic) Hypertension (Chronic) Surgical History History of partial colectomy (Chronic) History of tonsillectomy and adenoidectomy (Chronic) History of cholecystectomy (Chronic) History of shoulder surgery (Chronic) History of percutaneous coronary intervention (Chronic) Family History Other Family history non-contributory Social History Preferred Language: [place] Beliefs That Will Affect Care: Buddhism Current Living Situation: Alf Current Living Situation Comment: [place] other: Bed Bound Feels Safe at Home: Yes Smoking Status: Former smoker Hx Alcohol Use: No Hx Substance Use: No Review of Systems Unobtainable due to mental health condition ROS is limited due to patient's inability to communicate Physical Exam Vital Signs Vital Signs - 24 hr 12/08/18 17:07 12/08/18 17:08 12/08/18 17:09 Temperature Temperature Source Sepsis Recent Fever Within 48 Hours No Sepsis New/Unexplained Change in Mental Status No Sepsis Action Taken by Nursing No Action Required Pulse Rate 65 60 64 Pulse Rate [Finger] Pulse Rate from SpO2 Sensor 65 60 Pulse Rhythm Regular Pulse Strength Normal Respiratory Rate 18 18 12 Respiratory Effort / Characteristics Non-Labored Spontaneous Respiratory Depth Normal Respiratory Pattern Regular Blood Pressure 85/47 L 85/47 L Blood Pressure [Left Arm] Blood Pressure [Right Arm] Blood Pressure Mean 59 59 Blood Pressure Mean [Left Arm] Blood Pressure Mean [Right Arm] Blood Pressure Position Lying Blood Pressure Position [Left Arm] Pulse Oximetry 92 98 93 Oxygen Delivery Method Oxygen Flow Rate 12/08/18 17:10 12/08/18 17:11 12/08/18 17:16 Temperature Temperature Source Sepsis Recent Fever Within 48 Hours Sepsis New/Unexplained Change in Mental Status Sepsis Action Taken by Nursing Pulse Rate 66 68 66 Pulse Rate [Finger] Pulse Rate from SpO2 Sensor 66 71 Pulse Rhythm Pulse Strength Respiratory Rate 21 18 16 Respiratory Effort / Characteristics Respiratory Depth Respiratory Pattern Blood Pressure 91/63 L 89/44 L Blood Pressure [Left Arm] Blood Pressure [Right Arm] Blood Pressure Mean 72 59 Blood Pressure Mean [Left Arm] Blood Pressure Mean [Right Arm] Blood Pressure Position Blood Pressure Position [Left Arm] Pulse Oximetry 98 94 Oxygen Delivery Method Oxygen Flow Rate 12/08/18 17:17 12/08/18 17:20 12/08/18 17:29 Temperature Temperature Source Sepsis Recent Fever Within 48 Hours Sepsis New/Unexplained Change in Mental Status Sepsis Action Taken by Nursing Pulse Rate 63 62 63 Pulse Rate [Finger] Pulse Rate from SpO2 Sensor 64 Pulse Rhythm Regular Pulse Strength Respiratory Rate 15 15 Respiratory Effort / Characteristics Respiratory Depth Respiratory Pattern Blood Pressure 94/40 L Blood Pressure [Left Arm] Blood Pressure [Right Arm] Blood Pressure Mean 58 Blood Pressure Mean [Left Arm] Blood Pressure Mean [Right Arm] Blood Pressure Position Blood Pressure Position [Left Arm] Pulse Oximetry 99 99 Oxygen Delivery Method Room Air Oxygen Flow Rate 12/08/18 17:30 12/08/18 17:31 12/08/18 17:40 Temperature Temperature Source Sepsis Recent Fever Within 48 Hours Sepsis New/Unexplained Change in Mental Status Sepsis Action Taken by Nursing Pulse Rate 62 63 67 Pulse Rate [Finger] Pulse Rate from SpO2 Sensor 61 67 Pulse Rhythm Pulse Strength Respiratory Rate 15 16 19 Respiratory Effort / Characteristics Respiratory Depth Respiratory Pattern Blood Pressure 96/64 L Blood Pressure [Left Arm] Blood Pressure [Right Arm] Blood Pressure Mean 74 Blood Pressure Mean [Left Arm] Blood Pressure Mean [Right Arm] Blood Pressure Position Blood Pressure Position [Left Arm] Pulse Oximetry 99 99 Oxygen Delivery Method Oxygen Flow Rate 12/08/18 17:46 12/08/18 17:50 12/08/18 18:02 Temperature Temperature Source Sepsis Recent Fever Within 48 Hours Sepsis New/Unexplained Change in Mental Status Sepsis Action Taken by Nursing Pulse Rate 63 63 Pulse Rate [Finger] Pulse Rate from SpO2 Sensor 65 67 Pulse Rhythm Pulse Strength Respiratory Rate 21 15 Respiratory Effort / Characteristics Respiratory Depth Respiratory Pattern Blood Pressure 109/39 L Blood Pressure [Left Arm] Blood Pressure [Right Arm] Blood Pressure Mean 62 Blood Pressure Mean [Left Arm] Blood Pressure Mean [Right Arm] Blood Pressure Position Blood Pressure Position [Left Arm] Pulse Oximetry 99 99 Oxygen Delivery Method Oxygen Flow Rate 12/08/18 18:03 12/08/18 18:04 12/08/18 18:10 Temperature Temperature Source Sepsis Recent Fever Within 48 Hours Sepsis New/Unexplained Change in Mental Status Sepsis Action Taken by Nursing Pulse Rate 62 59 L 58 L Pulse Rate [Finger] Pulse Rate from SpO2 Sensor 63 58 L 58 L Pulse Rhythm Pulse Strength Respiratory Rate 16 16 22 Respiratory Effort / Characteristics Respiratory Depth Respiratory Pattern Blood Pressure 100/56 L Blood Pressure [Left Arm] Blood Pressure [Right Arm] Blood Pressure Mean 70 Blood Pressure Mean [Left Arm] Blood Pressure Mean [Right Arm] Blood Pressure Position Blood Pressure Position [Left Arm] Pulse Oximetry 97 96 96 Oxygen Delivery Method Oxygen Flow Rate 12/08/18 18:16 12/08/18 18:20 12/08/18 18:30 Temperature 34.3 C L Temperature Source Rectal Sepsis Recent Fever Within 48 Hours Sepsis New/Unexplained Change in Mental Status Sepsis Action Taken by Nursing Pulse Rate 64 61 58 L Pulse Rate [Finger] Pulse Rate from SpO2 Sensor 64 62 Pulse Rhythm Pulse Strength Respiratory Rate 18 31 H 15 Respiratory Effort / Characteristics Respiratory Depth Respiratory Pattern Blood Pressure 100/35 L Blood Pressure [Left Arm] Blood Pressure [Right Arm] Blood Pressure Mean 56 Blood Pressure Mean [Left Arm] Blood Pressure Mean [Right Arm] Blood Pressure Position Blood Pressure Position [Left Arm] Pulse Oximetry 95 98 Oxygen Delivery Method Oxygen Flow Rate 12/08/18 18:31 12/08/18 18:32 12/08/18 18:40 Temperature Temperature Source Sepsis Recent Fever Within 48 Hours Sepsis New/Unexplained Change in Mental Status Sepsis Action Taken by Nursing Pulse Rate 61 59 L 61 Pulse Rate [Finger] Pulse Rate from SpO2 Sensor Pulse Rhythm Pulse Strength Respiratory Rate 13 14 15 Respiratory Effort / Characteristics Respiratory Depth Respiratory Pattern Blood Pressure 109/48 L Blood Pressure [Left Arm] Blood Pressure [Right Arm] Blood Pressure Mean 68 Blood Pressure Mean [Left Arm] Blood Pressure Mean [Right Arm] Blood Pressure Position Blood Pressure Position [Left Arm] Pulse Oximetry Oxygen Delivery Method Oxygen Flow Rate 2 12/08/18 18:46 12/08/18 18:50 12/08/18 19:00 Temperature Temperature Source Sepsis Recent Fever Within 48 Hours Sepsis New/Unexplained Change in Mental Status Sepsis Action Taken by Nursing Pulse Rate 62 61 66 Pulse Rate [Finger] Pulse Rate from SpO2 Sensor Pulse Rhythm Pulse Strength Respiratory Rate 18 20 23 Respiratory Effort / Characteristics Respiratory Depth Respiratory Pattern Blood Pressure 97/50 L Blood Pressure [Left Arm] Blood Pressure [Right Arm] Blood Pressure Mean 65 Blood Pressure Mean [Left Arm] Blood Pressure Mean [Right Arm] Blood Pressure Position Blood Pressure Position [Left Arm] Pulse Oximetry Oxygen Delivery Method Oxygen Flow Rate 12/08/18 19:01 12/08/18 19:10 12/08/18 19:16 Temperature Temperature Source Sepsis Recent Fever Within 48 Hours Sepsis New/Unexplained Change in Mental Status Sepsis Action Taken by Nursing Pulse Rate 54 L 55 L 65 Pulse Rate [Finger] Pulse Rate from SpO2 Sensor Pulse Rhythm Pulse Strength Respiratory Rate 18 18 20 Respiratory Effort / Characteristics Respiratory Depth Respiratory Pattern Blood Pressure 114/47 L 114/43 L Blood Pressure [Left Arm] Blood Pressure [Right Arm] Blood Pressure Mean 69 66 Blood Pressure Mean [Left Arm] Blood Pressure Mean [Right Arm] Blood Pressure Position Blood Pressure Position [Left Arm] Pulse Oximetry Oxygen Delivery Method Oxygen Flow Rate 12/08/18 19:20 12/08/18 19:28 12/08/18 19:30 Temperature Temperature Source Sepsis Recent Fever Within 48 Hours Sepsis New/Unexplained Change in Mental Status Sepsis Action Taken by Nursing Pulse Rate 59 L 61 Pulse Rate [Finger] 63 Pulse Rate from SpO2 Sensor Pulse Rhythm Pulse Strength Respiratory Rate 19 20 18 Respiratory Effort / Characteristics Respiratory Depth Respiratory Pattern Blood Pressure Blood Pressure [Left Arm] Blood Pressure [Right Arm] 114/43 L Blood Pressure Mean Blood Pressure Mean [Left Arm] Blood Pressure Mean [Right Arm] 66 Blood Pressure Position Blood Pressure Position [Left Arm] Pulse Oximetry 100 Oxygen Delivery Method Nasal Cannula Oxygen Flow Rate 2 12/08/18 19:31 12/08/18 19:40 12/08/18 19:46 Temperature Temperature Source Sepsis Recent Fever Within 48 Hours Sepsis New/Unexplained Change in Mental Status Sepsis Action Taken by Nursing Pulse Rate 63 54 L 58 L Pulse Rate [Finger] Pulse Rate from SpO2 Sensor 62 54 L 61 Pulse Rhythm Pulse Strength Respiratory Rate 21 19 19 Respiratory Effort / Characteristics Respiratory Depth Respiratory Pattern Blood Pressure 110/41 L 100/38 L Blood Pressure [Left Arm] Blood Pressure [Right Arm] Blood Pressure Mean 64 58 Blood Pressure Mean [Left Arm] Blood Pressure Mean [Right Arm] Blood Pressure Position Blood Pressure Position [Left Arm] Pulse Oximetry 95 99 100 Oxygen Delivery Method Oxygen Flow Rate 12/08/18 19:50 12/08/18 20:00 12/08/18 20:01 Temperature Temperature Source Sepsis Recent Fever Within 48 Hours Sepsis New/Unexplained Change in Mental Status Sepsis Action Taken by Nursing Pulse Rate 54 L 56 L 62 Pulse Rate [Finger] Pulse Rate from SpO2 Sensor 55 L 58 L 59 L Pulse Rhythm Pulse Strength Respiratory Rate 18 13 16 Respiratory Effort / Characteristics Respiratory Depth Respiratory Pattern Blood Pressure 104/43 L Blood Pressure [Left Arm] Blood Pressure [Right Arm] Blood Pressure Mean 63 Blood Pressure Mean [Left Arm] Blood Pressure Mean [Right Arm] Blood Pressure Position Blood Pressure Position [Left Arm] Pulse Oximetry 99 99 Oxygen Delivery Method Oxygen Flow Rate 12/08/18 20:04 12/08/18 20:10 12/08/18 20:16 Temperature Temperature Source Sepsis Recent Fever Within 48 Hours Sepsis New/Unexplained Change in Mental Status Sepsis Action Taken by Nursing Pulse Rate 56 L 60 66 Pulse Rate [Finger] Pulse Rate from SpO2 Sensor 55 L 130 H 64 Pulse Rhythm Pulse Strength Respiratory Rate 16 19 18 Respiratory Effort / Characteristics Respiratory Depth Respiratory Pattern Blood Pressure 104/43 L 110/48 L Blood Pressure [Left Arm] Blood Pressure [Right Arm] Blood Pressure Mean 63 68 Blood Pressure Mean [Left Arm] Blood Pressure Mean [Right Arm] Blood Pressure Position Blood Pressure Position [Left Arm] Pulse Oximetry 99 82 L 99 Oxygen Delivery Method Oxygen Flow Rate 12/08/18 20:20 12/08/18 20:30 12/08/18 20:31 Temperature Temperature Source Sepsis Recent Fever Within 48 Hours Sepsis New/Unexplained Change in Mental Status Sepsis Action Taken by Nursing Pulse Rate 56 L 69 56 L Pulse Rate [Finger] Pulse Rate from SpO2 Sensor 54 L 64 57 L Pulse Rhythm Pulse Strength Respiratory Rate 20 19 19 Respiratory Effort / Characteristics Respiratory Depth Respiratory Pattern Blood Pressure 127/44 L Blood Pressure [Left Arm] Blood Pressure [Right Arm] Blood Pressure Mean 71 Blood Pressure Mean [Left Arm] Blood Pressure Mean [Right Arm] Blood Pressure Position Blood Pressure Position [Left Arm] Pulse Oximetry 99 96 Oxygen Delivery Method Oxygen Flow Rate 12/08/18 20:40 12/08/18 20:43 12/08/18 20:46 Temperature Temperature Source Sepsis Recent Fever Within 48 Hours Sepsis New/Unexplained Change in Mental Status Sepsis Action Taken by Nursing Pulse Rate 61 66 Pulse Rate [Finger] 56 L Pulse Rate from SpO2 Sensor 65 65 Pulse Rhythm Pulse Strength Respiratory Rate 19 17 18 Respiratory Effort / Characteristics Respiratory Depth Respiratory Pattern Blood Pressure 111/36 L Blood Pressure [Left Arm] Blood Pressure [Right Arm] 127/44 L Blood Pressure Mean 61 Blood Pressure Mean [Left Arm] Blood Pressure Mean [Right Arm] 71 Blood Pressure Position Blood Pressure Position [Left Arm] Pulse Oximetry 92 96 99 Oxygen Delivery Method Nasal Cannula Oxygen Flow Rate 2 12/08/18 20:50 12/08/18 20:57 12/08/18 21:00 Temperature 34.9 C L Temperature Source Rectal Sepsis Recent Fever Within 48 Hours Sepsis New/Unexplained Change in Mental Status Sepsis Action Taken by Nursing Pulse Rate 58 L 59 L Pulse Rate [Finger] Pulse Rate from SpO2 Sensor 57 L Pulse Rhythm Pulse Strength Respiratory Rate 17 19 Respiratory Effort / Characteristics Respiratory Depth Respiratory Pattern Blood Pressure Blood Pressure [Left Arm] Blood Pressure [Right Arm] Blood Pressure Mean Blood Pressure Mean [Left Arm] Blood Pressure Mean [Right Arm] Blood Pressure Position Blood Pressure Position [Left Arm] Pulse Oximetry 99 Oxygen Delivery Method Oxygen Flow Rate 12/08/18 21:10 12/08/18 21:16 12/08/18 21:20 Temperature Temperature Source Sepsis Recent Fever Within 48 Hours Sepsis New/Unexplained Change in Mental Status Sepsis Action Taken by Nursing Pulse Rate 64 59 L 59 L Pulse Rate [Finger] Pulse Rate from SpO2 Sensor Pulse Rhythm Pulse Strength Respiratory Rate 16 19 16 Respiratory Effort / Characteristics Respiratory Depth Respiratory Pattern Blood Pressure 113/50 L Blood Pressure [Left Arm] Blood Pressure [Right Arm] Blood Pressure Mean 71 Blood Pressure Mean [Left Arm] Blood Pressure Mean [Right Arm] Blood Pressure Position Blood Pressure Position [Left Arm] Pulse Oximetry Oxygen Delivery Method Oxygen Flow Rate 12/08/18 21:30 12/08/18 21:32 12/08/18 21:33 Temperature Temperature Source Sepsis Recent Fever Within 48 Hours Sepsis New/Unexplained Change in Mental Status Sepsis Action Taken by Nursing Pulse Rate 70 72 73 Pulse Rate [Finger] Pulse Rate from SpO2 Sensor Pulse Rhythm Pulse Strength Respiratory Rate 21 17 18 Respiratory Effort / Characteristics Respiratory Depth Respiratory Pattern Blood Pressure 102/60 Blood Pressure [Left Arm] Blood Pressure [Right Arm] Blood Pressure Mean 74 Blood Pressure Mean [Left Arm] Blood Pressure Mean [Right Arm] Blood Pressure Position Blood Pressure Position [Left Arm] Pulse Oximetry Oxygen Delivery Method Oxygen Flow Rate 12/08/18 21:36 12/08/18 21:40 12/08/18 21:46 Temperature Temperature Source Sepsis Recent Fever Within 48 Hours Sepsis New/Unexplained Change in Mental Status Sepsis Action Taken by Nursing Pulse Rate 72 68 70 Pulse Rate [Finger] Pulse Rate from SpO2 Sensor Pulse Rhythm Pulse Strength Respiratory Rate 17 19 18 Respiratory Effort / Characteristics Respiratory Depth Respiratory Pattern Blood Pressure 102/60 124/57 L Blood Pressure [Left Arm] Blood Pressure [Right Arm] Blood Pressure Mean 79 Blood Pressure Mean [Left Arm] Blood Pressure Mean [Right Arm] Blood Pressure Position Blood Pressure Position [Left Arm] Pulse Oximetry Oxygen Delivery Method Nasal Cannula Oxygen Flow Rate 2 12/08/18 21:50 12/08/18 23:40 Temperature 36.5 C Temperature Source Oral Sepsis Recent Fever Within 48 Hours Sepsis New/Unexplained Change in Mental Status Sepsis Action Taken by Nursing Pulse Rate 72 Pulse Rate [Finger] 68 Pulse Rate from SpO2 Sensor Pulse Rhythm Pulse Strength Respiratory Rate 20 20 Respiratory Effort / Characteristics Respiratory Depth Normal Respiratory Pattern Blood Pressure Blood Pressure [Left Arm] 136/75 Blood Pressure [Right Arm] Blood Pressure Mean Blood Pressure Mean [Left Arm] 95 Blood Pressure Mean [Right Arm] Blood Pressure Position Blood Pressure Position [Left Arm] Lying Pulse Oximetry 100 Oxygen Delivery Method Nasal Cannula Oxygen Flow Rate HENT: Exam performed. Head: Normocephalic and atraumatic. Right Ear: External ear normal. No mastoid tenderness. Left Ear: External ear normal. No mastoid tenderness. Mouth/Throat: The oropharynx is clear and moist. No trismus in the jaw. No dental abscesses or uvula swelling. No oropharyngeal exudate or tonsillar abscesses. EYES: Conjunctivae and EOM are normal. Pupils are equal, round, and reactive to light. Right eye exhibits no discharge. Left eye exhibits no discharge. No scleral icterus. NECK: Normal range of motion. Neck supple. No JVD present. No spinous process tenderness present. No carotid bruit present. No rigidity. No tracheal deviation and normal range of motion present. No Brudzinski's sign and no Kernig's sign noted. CV: Normal rate, regular rhythm, normal heart sounds and intact distal pulses. There is no peripheral edema. Palpable radial pulses. PULM/CHEST: Rhonchi bilaterally. Chest Wall: She exhibits no tenderness. ABD: The abdomen is soft. Obese and nontender. NEURO: GCS eye subscore is 4. GCS verbal subscore is 5. GCS motor subscore is 5. SKIN: Skin is warm and dry. She is not diaphoretic. Stage I decubitus sacral ulcer, approximately 1 cm in diameter. Course 1710: The patient was evaluated in room D02B, and a complete history and physical examination were performed. Patient was found to be hypotensive immediately on arrival in the emergency department. Large-bore IV access was obtained. Fluid resuscitation was immediately begun. POC glucose on arrival was within normal limits. 1753: The patient's blood pressure is 109/63. Her mental status is baseline. She has been sent for CAT scan of the head. 1815: CT of the head shows no acute intercranial hemorrhage. There is increased the extent of a 1.4 cm subacute infarct in the right centrum semi-ovale. There is also interval development of a possible distal 1.3 cm infarct in the periventricular left parietal lobe. Patient is not a tPA candidate due to recent history of stroke and that the patient's glucose on presentation was 40. 1843: Oral temperature was unable to be obtained by nursing staff. The patients rectal temperature is at 32 degrees. Patient was placed on Ana hugger. 1930: Labs showed no leukocytosis. Renal profile within normal limits. Chest is concerning for left lower lobe opacity. Urinalysis also looks possible positive for infection. Given the patient's low blood pressure, hypothermia, she will be treated for sepsis with broad-spectrum antibiotics cefepime and Vanco. This should cover for any UTI or H CAP. Again the patient is not a TPA candidate given that they were hypoglycemic on presentation of initial symptoms, the patient's clinical picture is also favoring sepsis. I spoke with Uvaldo Burrows regarding the case. He will admit the patient under his care for further treatment. The patient has verbalized agreement to the treatment plan. The patient's BP is stable and is on the ANA hugger. Consultations Consultation #1: Uvaldo Burrows Time: 19:30 Administered Medications Dextrose (Dextrose 50%) 25 - 50 ml IV UD PRN; Protocol PRN Reason: Hypoglycemia Protocol Stop: 01/07/19 23:14 Last Admin: 12/08/18 23:36 Dose: 25 ml Documented by: [id number] Dextrose/Lactated Ringer's (D5w And Lactated Ringers) 1,000 mls @ 125 mls/hr IV .Q8H DREW Stop: 01/07/19 22:25 Last Admin: 12/08/18 23:15 Dose: 125 mls/hr Documented by: [id number] Discontinued Medications Sodium Chloride (Nss 1000ml) 1,000 mls @ 999 mls/hr IV .Q1H1M ONE Stop: 12/08/18 18:16 Last Infusion: 12/08/18 18:10 Dose: 0 mls/hr Documented by: [id number] Admin: 12/08/18 17:05 Dose: 999 mls/hr Documented by: [id number] Sodium Chloride (Nss 1000ml) 1,000 mls @ 125 mls/hr IV .Q8H DREW Stop: 01/07/19 18:14 Last Infusion: 12/08/18 23:15 Dose: 0 mls/hr Documented by: [id number] Admin: 12/08/18 18:39 Dose: 125 mls/hr Documented by: [id number] Vancomycin HCl (Vancomycin Hcl) 1,000 mg in 270 mls @ 125 mls/hr IV NOW STA Stop: 12/08/18 21:08 Last Infusion: 12/08/18 21:40 Dose: 0 mls/hr Documented by: [id number] Admin: 12/08/18 19:30 Dose: 125 mls/hr Documented by: [id number] Cefepime HCl 1,000 mg/ Syringe 11.3 mls @ 5.5 mls/min IV NOW STA Stop: 12/08/18 19:01 Last Admin: 12/08/18 20:41 Dose: 5.5 mls/min Documented by: [id number] Medical Decision Making Medical Records Attestation: I reviewed the patient's medical records. Home Medications Current Medication List: was personally reviewed by nj Laboratory Data Attestation: I reviewed the patient's lab results. Result diagrams: 12/08/18 16:41 12/08/18 16:41 Lab Results 12/08/18 12/08/18 12/08/18 Range/Units 16:41 16:41 16:41 WBC 7.78 (4.8-10.8) K/uL RBC 4.72 (4.2-5.4) M/uL Hgb 15.5 (12.0-16.0) g/dL Hct 45.6 (37-47) % MCV 96.6 (80-100) fL MCH 32.8 (25-34) pg MCHC 34.0 (32-36) g/dL RDW Std Deviation 52.8 H (36.4-46.3) fL RDW Coeff of Dougie 15.0 H (11.5-14.5) % Plt Count 251 (130-400) K/uL MPV 11.2 H (7.4-10.4) fL Immature Gran % (Auto) 0.1 % Neut % (Auto) 74.0 % Lymph % (Auto) 15.9 % Hard[place] % (Auto) 5.1 % Eos % (Auto) 4.5 % Baso % (Auto) 0.4 % Immature Gran # (Auto) 0.01 (0.00-0.02) K/uL Neut # (Auto) 5.75 (1.4-6.5) K/uL Lymph # (Auto) 1.24 (1.2-3.4) K/uL [place] # (Auto) 0.40 (0.11-0.59) K/uL Eos # (Auto) 0.35 (0-0.5) K/uL Baso # (Auto) 0.03 (0-0.2) K/uL PT 10.9 (9.0-12.0) Seconds INR 1.1 (0.9-1.1) APTT 26.5 (21.0-31.0) Seconds PTT Ratio 1.0 VBG pH (7.36-7.41) VBG pCO2 (38-50) mmHg VBG pO2 mmHg VBG HCO3 mmol/L VBG O2 Saturation % VBG Base Excess mEq/L Barometric Pressure mm/Hg Sodium 140 (136-145) mmol/L Potassium 4.0 (3.5-5.1) mmol/L Chloride 104 (98-107) mmol/L Carbon Dioxide 28 (21-32) mmol/L Anion Gap 8.0 (3-11) BUN 19 H (7-18) mg/dl Creatinine 0.83 (0.6-1.2) mg/dl Est Cr Clr Drug Dosing Not Reportable Est GFR ( Amer) 81.1 Est GFR (Non-Af Amer) 70.0 BUN/Creatinine Ratio 23.1 H (10-20) Glucose 144 H (70-99) mg/dl POC Glucose (70-99) Lactate (0.4-2.0) mmol/L Calcium 9.5 (8.5-10.1) mg/dl Total Bilirubin 0.7 (0.2-1) mg/dl Direct Bilirubin 0.2 (0-0.2) mg/dl AST 23 (15-37) U/L ALT 21 (12-78) U/L Alkaline Phosphatase 61 (45-117) U/L Ammonia (11-32) umol/L Troponin I < 0.015 (0-0.045) ng/ml Total Protein 7.1 (6.4-8.2) gm/dl Albumin 3.1 L (3.4-5.0) gm/dl Lipase 56 L (73-393) U/L Urine Color Urine Appearance (Clear) Urine pH (4.5-7.5) Ur Specific [place] (1.000-1.030) Urine Protein (Negative) Urine Glucose (UA) (Negative) Urine Ketones (Negative) Urine Blood (Negative) Urine Nitrite (Negative) Urine Bilirubin (Negative) Urine Urobilinogen (Negative) Ur Leukocyte Esterase (Negative) Urine WBC (Auto) (0-5) /hpf Urine RBC (Auto) (0-4) /hpf U Hyaline Cast (Auto) (0-5) /lpf U Epithel Cells (Auto) (0-5) /lpf Urine Bacteria (Auto) (Negative) Ur Renal Epithelial Cell Urine Yeast 12/08/18 12/08/18 12/08/18 Range/Units 17:05 18:21 18:26 WBC (4.8-10.8) K/uL RBC (4.2-5.4) M/uL Hgb (12.0-16.0) g/dL Hct (37-47) % MCV (80-100) fL MCH (25-34) pg MCHC (32-36) g/dL RDW Std Deviation (36.4-46.3) fL RDW Coeff of Dougie (11.5-14.5) % Plt Count (130-400) K/uL MPV (7.4-10.4) fL Immature Gran % (Auto) % Neut % (Auto) % Lymph % (Auto) % [place] % (Auto) % Eos % (Auto) % Baso % (Auto) % Immature Gran # (Auto) (0.00-0.02) K/uL Neut # (Auto) (1.4-6.5) K/uL Lymph # (Auto) (1.2-3.4) K/uL [place] # (Auto) (0.11-0.59) K/uL Eos # (Auto) (0-0.5) K/uL Baso # (Auto) (0-0.2) K/uL PT (9.0-12.0) Seconds INR (0.9-1.1) APTT (21.0-31.0) Seconds PTT Ratio VBG pH (7.36-7.41) VBG pCO2 (38-50) mmHg VBG pO2 mmHg VBG HCO3 mmol/L VBG O2 Saturation % VBG Base Excess mEq/L Barometric Pressure mm/Hg Sodium (136-145) mmol/L Potassium (3.5-5.1) mmol/L Chloride (98-107) mmol/L Carbon Dioxide (21-32) mmol/L Anion Gap (3-11) BUN (7-18) mg/dl Creatinine (0.6-1.2) mg/dl Est Cr Clr Drug Dosing Est GFR ( Amer) Est GFR (Non-Af Amer) BUN/Creatinine Ratio (10-20) Glucose (70-99) mg/dl POC Glucose 176 H 185 H (70-99) Lactate (0.4-2.0) mmol/L Calcium (8.5-10.1) mg/dl Total Bilirubin (0.2-1) mg/dl Direct Bilirubin (0-0.2) mg/dl AST (15-37) U/L ALT (12-78) U/L Alkaline Phosphatase (45-117) U/L Ammonia 13.3 (11-32) umol/L Troponin I (0-0.045) ng/ml Total Protein (6.4-8.2) gm/dl Albumin (3.4-5.0) gm/dl Lipase (73-393) U/L Urine Color Urine Appearance (Clear) Urine pH (4.5-7.5) Ur Specific [place] (1.000-1.030) Urine Protein (Negative) Urine Glucose (UA) (Negative) Urine Ketones (Negative) Urine Blood (Negative) Urine Nitrite (Negative) Urine Bilirubin (Negative) Urine Urobilinogen (Negative) Ur Leukocyte Esterase (Negative) Urine WBC (Auto) (0-5) /hpf Urine RBC (Auto) (0-4) /hpf U Hyaline Cast (Auto) (0-5) /lpf U Epithel Cells (Auto) (0-5) /lpf Urine Bacteria (Auto) (Negative) Ur Renal Epithelial Cell Urine Yeast 12/08/18 12/08/18 12/08/18 Range/Units 18:26 18:26 18:37 WBC (4.8-10.8) K/uL RBC (4.2-5.4) M/uL Hgb (12.0-16.0) g/dL Hct (37-47) % MCV (80-100) fL MCH (25-34) pg MCHC (32-36) g/dL RDW Std Deviation (36.4-46.3) fL RDW Coeff of Dougie (11.5-14.5) % Plt Count (130-400) K/uL MPV (7.4-10.4) fL Immature Gran % (Auto) % Neut % (Auto) % Lymph % (Auto) % [place] % (Auto) % Eos % (Auto) % Baso % (Auto) % Immature Gran # (Auto) (0.00-0.02) K/uL Neut # (Auto) (1.4-6.5) K/uL Lymph # (Auto) (1.2-3.4) K/uL [place] # (Auto) (0.11-0.59) K/uL Eos # (Auto) (0-0.5) K/uL Baso # (Auto) (0-0.2) K/uL PT (9.0-12.0) Seconds INR (0.9-1.1) APTT (21.0-31.0) Seconds PTT Ratio VBG pH 7.31 L (7.36-7.41) VBG pCO2 59 H (38-50) mmHg VBG pO2 43 mmHg VBG HCO3 29 mmol/L VBG O2 Saturation 73.8 % VBG Base Excess 1.2 mEq/L Barometric Pressure 731.6 mm/Hg Sodium (136-145) mmol/L Potassium (3.5-5.1) mmol/L Chloride (98-107) mmol/L Carbon Dioxide (21-32) mmol/L Anion Gap (3-11) BUN (7-18) mg/dl Creatinine (0.6-1.2) mg/dl Est Cr Clr Drug Dosing Est GFR ( Amer) Est GFR (Non-Af Amer) BUN/Creatinine Ratio (10-20) Glucose (70-99) mg/dl POC Glucose (70-99) Lactate 1.6 (0.4-2.0) mmol/L Calcium (8.5-10.1) mg/dl Total Bilirubin (0.2-1) mg/dl Direct Bilirubin (0-0.2) mg/dl AST (15-37) U/L ALT (12-78) U/L Alkaline Phosphatase (45-117) U/L Ammonia (11-32) umol/L Troponin I (0-0.045) ng/ml Total Protein (6.4-8.2) gm/dl Albumin (3.4-5.0) gm/dl Lipase (73-393) U/L Urine Color Dark Yellow Urine Appearance Cloudy H (Clear) Urine pH 5.0 (4.5-7.5) Ur Specific [place] 1.027 (1.000-1.030) Urine Protein 1+ H (Negative) Urine Glucose (UA) Negative (Negative) Urine Ketones Trace H (Negative) Urine Blood Negative (Negative) Urine Nitrite Negative (Negative) Urine Bilirubin Negative (Negative) Urine Urobilinogen Negative (Negative) Ur Leukocyte Esterase 2+ H (Negative) Urine WBC (Auto) >30 H (0-5) /hpf Urine RBC (Auto) 0-4 (0-4) /hpf U Hyaline Cast (Auto) 5-10 H (0-5) /lpf U Epithel Cells (Auto) >30 H (0-5) /lpf Urine Bacteria (Auto) Negative (Negative) Ur Renal Epithelial Cell Not Reportable Urine Yeast Not Reportable 12/08/18 12/08/18 12/08/18 Range/Units 23:03 23:05 23:54 WBC (4.8-10.8) K/uL RBC (4.2-5.4) M/uL Hgb (12.0-16.0) g/dL Hct (37-47) % MCV (80-100) fL MCH (25-34) pg MCHC (32-36) g/dL RDW Std Deviation (36.4-46.3) fL RDW Coeff of Dougie (11.5-14.5) % Plt Count (130-400) K/uL MPV (7.4-10.4) fL Immature Gran % (Auto) % Neut % (Auto) % Lymph % (Auto) % [place] % (Auto) % Eos % (Auto) % Baso % (Auto) % Immature Gran # (Auto) (0.00-0.02) K/uL Neut # (Auto) (1.4-6.5) K/uL Lymph # (Auto) (1.2-3.4) K/uL [place] # (Auto) (0.11-0.59) K/uL Eos # (Auto) (0-0.5) K/uL Baso # (Auto) (0-0.2) K/uL PT (9.0-12.0) Seconds INR (0.9-1.1) APTT (21.0-31.0) Seconds PTT Ratio VBG pH (7.36-7.41) VBG pCO2 (38-50) mmHg VBG pO2 mmHg VBG HCO3 mmol/L VBG O2 Saturation % VBG Base Excess mEq/L Barometric Pressure mm/Hg Sodium (136-145) mmol/L Potassium (3.5-5.1) mmol/L Chloride (98-107) mmol/L Carbon Dioxide (21-32) mmol/L Anion Gap (3-11) BUN (7-18) mg/dl Creatinine (0.6-1.2) mg/dl Est Cr Clr Drug Dosing Est GFR ( Amer) Est GFR (Non-Af Amer) BUN/Creatinine Ratio (10-20) Glucose (70-99) mg/dl POC Glucose 61 L* 63 L* 111 H (70-99) Lactate (0.4-2.0) mmol/L Calcium (8.5-10.1) mg/dl Total Bilirubin (0.2-1) mg/dl Direct Bilirubin (0-0.2) mg/dl AST (15-37) U/L ALT (12-78) U/L Alkaline Phosphatase (45-117) U/L Ammonia (11-32) umol/L Troponin I (0-0.045) ng/ml Total Protein (6.4-8.2) gm/dl Albumin (3.4-5.0) gm/dl Lipase (73-393) U/L Urine Color Urine Appearance (Clear) Urine pH (4.5-7.5) Ur Specific [place] (1.000-1.030) Urine Protein (Negative) Urine Glucose (UA) (Negative) Urine Ketones (Negative) Urine Blood (Negative) Urine Nitrite (Negative) Urine Bilirubin (Negative) Urine Urobilinogen (Negative) Ur Leukocyte Esterase (Negative) Urine WBC (Auto) (0-5) /hpf Urine RBC (Auto) (0-4) /hpf U Hyaline Cast (Auto) (0-5) /lpf U Epithel Cells (Auto) (0-5) /lpf Urine Bacteria (Auto) (Negative) Ur Renal Epithelial Cell Urine Yeast Imaging Data Attestation: I personally reviewed and interpreted this imaging study as follows: Radiologist's Impression: Radiology results as stated below per my review and the radiologist's interpretation: CT OF THE HEAD WITHOUT CONTRAST CLINICAL HISTORY: Altered mental status. COMPARISON STUDY: Head CT/CTA of the head and MRI of the brain January 26, 2019. CT DOSE: 537.48 mGy.cm TECHNIQUE: Helical axial images of the head were obtained without IV contrast. Automated exposure control was utilized for the study. A dose lowering t echnique was utilized adhering to the principles of ALARA. FINDINGS: No acute intracranial hemorrhage, midline shift or mass effect is present. The ventricular system is stable. Basilar cisterns are patent. A 1.4 cm infarct within the right centrum semiovale ovale has increased in extent since MRI of November 26, 2018. There may be a new 1.3 cm infarct within the periventricular left parietal lobe on axial image 16 of 28. There are no significant calvarial abnormalities. IMPRESSION: 1. No acute intracranial hemorrhage or mass effect. 2. Increase in extent of a 1.4 cm subacute infarct within the right centrum semiovale ovale since MRI of November 26, 2018. 3. Interval development of a possible additional 1.3 cm infarct within the periventricular left parietal lobe since previous MRI. Electronically signed by: Te Ramirez M.D. 12/08/2018 6:09 PM Dictated: 12/08/18 1800 Transcribed: 12/08/18 1800 XR chest 1V portable CLINICAL HISTORY: Altered mental status. COMPARISON STUDY: Chest radiograph November 26, 2018. FINDINGS: Right shoulder arthroplasty is incidentally noted. Cardiomegaly is unchanged. There is no pneumothorax. There is a possible left pleural effusion. There is no evidence for pulmonary edema. Apparent hazy left basilar opacity is noted. IMPRESSION: Apparent hazy left basilar opacity with a possible small left pleural effusion. Artifact is favored however a pleural effusion with atelectasis/consolidation could appear similar. Electronically signed by: Te Ramirez M.D. 12/08/2018 6:50 PM Dictated: 12/08/181847 Transcribed: 12/08/181847 ECG Data Attestation: I personally reviewed and interpreted this ECG as follows: Indication: other (hypoglycemia ) Rate (beats per minute): 61 Rhythm: sinus rhythm Findings: + other (IA QRS QTC WNL ); no ST depression and no ST elevation Blood Pressure Blood Pressure Findings: Normal blood pressure MDM Narrative 1710: The patient was evaluated in room D02B, and a complete history and physical examination were performed. Patient was found to be hypotensive immediately on arrival in the emergency department. Large-bore IV access was obtained. Fluid resuscitation was immediately begun. POC glucose on arrival was within normal limits. 1753: The patient's blood pressure is 109/63. Her mental status is baseline. She has been sent for CAT scan of the head. 1815: CT of the head shows no acute intercranial hemorrhage. There is increased the extent of a 1.4 cm subacute infarct in the right centrum semi-ovale. There is also interval development of a possible distal 1.3 cm infarct in the periventricular left parietal lobe. Patient is not a tPA candidate due to recent history of stroke and that the patient's glucose on presentation was 40. 1843: Oral temperature was unable to be obtained by nursing staff. The patients rectal temperature is at 32 degrees. Patient was placed on Ana hugger. 1930: Labs showed no leukocytosis. Renal profile within normal limits. Chest is concerning for left lower lobe opacity. Urinalysis also looks possible positive for infection. Given the patient's low blood pressure, hypothermia, she will be treated for sepsis with broad-spectrum antibiotics cefepime and Vanco. This should cover for any UTI or H CAP. Again the patient is not a TPA candidate given that they were hypoglycemic on presentation of initial symptoms, the patient's clinical picture is also favoring sepsis. I spoke with Uvaldo Burrows regarding the case. He will admit the patient under his care for further treatment. The patient has verbalized agreement to the treatment plan. The patient's BP is stable and is on the ANA hugger. Impression & Plan Sepsis, Stroke, Pneumonia Critical Care Time I have personally spent greater than 73 minutes of critical care time in the direct management of this patient. This includes bedside care, interpretation of diagnostic studies, and testing, discussion with consultants, patient, and family members, and other required patient management activities. This 73 minutes is in excess of all separately billable procedures. Critical Care Time: Yes Total Critical Care Time: 73 Discharge Plan Visit Data *Final* Discharge Date/Time: 12/08/18 21:36 Chief Complaint: Hypoglycemia ED Provider: Kvng Bashir Discharge Problem: Sepsis, Stroke, Pneumonia Patient Disposition: Admitted As Inpatient Discharge Instructions Interventions: ED Discharge Assessment Last Done: 12/08/18 21:36 Discharge Problem: Sepsis Qualifiers: Sepsis type: sepsis due to unspecified organism Qualified Code(s): A41.9 - Sepsis, unspecified organism Stroke Qualifiers: CVA mechanism: unspecified Qualified Code(s): I63.9 - Cerebral infarction, unspecified Pneumonia Qualifiers: Pneumonia type: due to unspecified organism Laterality: unspecified laterality Lung location: unspecified part of lung Qualified Code(s): J18.9 - Pneumonia, unspecified organism The scribe's documentation has been prepared under my direction and personally reviewed by me in its entirety. I confirm that the note above accurately reflects all work, treatment, procedures, and medical decision making performed by me.
[2018-12-09] MEDS: HEPARIN SOD 5,000 UNIT/0.5 ML VIAL SQ SCH ×3 (01:59→17:27)
[2018-12-09] MEDS ORDERED: VANCOMYCIN HCL 1,250 MG in SODIUM CHLORIDE 0.9% 250 ML IV SCH ×2 (02:00→14:00)
[2018-12-09] MEDS ORDERED: CEFEPIME 1,000 MG in SYRINGE 0 ML IV SCH (04:00)
[2018-12-09] MEDS: INSULIN ASPART 100 UNITS/ML 3 ML PEN SC SCH ×4 (05:29→20:32)
[2018-12-09] MEDS: METOPROLOL TARTRATE 1 MG/ML VIAL IV SCH ×2 (05:43→12:07)
[2018-12-09 07:23] LABS: BUN Creatinine Ratio 27.8 (10-20); Calcium 8.6 mg/dl (8.5-10.1); Creatinine Clr Calc Pharmacy 106.8 ml/min; Est GFR (African American) 108.5; Est GFR (Non-African American) 93.6; Potassium 4.4 mmol/L (3.5-5.1)
[2018-12-09] MEDS: D5W AND LACTATED RINGERS 1,000 ML IV SCH ×2 (07:30→15:22)
[2018-12-09] MEDS: ARTIFICIAL TEARS OP SCH ×3 (07:33→20:31)
[2018-12-09 08:25] LABS: Estimated Average Glucose 154 mg/dl
[2018-12-09] MEDS ORDERED: ASPIRIN 300 MG SUPP PR SCH (09:00)
[2018-12-09] MEDS ORDERED: PANTOprazole 40 MG in SYRINGE 0 ML IV SCH (09:00)
--- NOTE | 2018-12-09 10:10 | Hospitalist Progress Note ---
Date of Service December 09, 2018 delayed entry date of service as noted above Assessment & Plan (1) Altered mental status: possible multifactorial: Hypoglycemia, New CVA, Possible PNA and UTI Management of Hypoglycemia and CVA noted below Possible PNA IMPRESSION: Apparent hazy left basilar opacity with a possible small left pleural effusion. Artifact is favored however a pleural effusion with atelectasis/consolidation could appear similar. -- ff up cultures -- continue Vanco + Cefepime Possible UTI -- ff up cultures -- continue abx as above (2) Hypoglycemia: Blood sugar was 40 at the half-way. Family reports variable oral intake. Received glucagon before being transported to the emergency room. Insulin Sliding Scale for now (3) Hypotension: Blood pressure on arrival to ED was 85/47 and improved with fluid resuscitation. likely from volume depletion improved (4) Cerebrovascular disease: Recent ischemic stroke of the right centrum semiovale with residual left hemiparesis. CT this evening demonstrates apparent extension of the previous noted infarct as well as interval development of a possible ischemic infarct within the left parietal lobe. Not a candidate for TPA due to (1) recent stroke and (2) hypoglycemia. Brain MRI ordered continued on ASA, Plavix, Atorvastatin Neurology consulted PT/OT (5) CAD (coronary artery disease): Serum troponin normal. continue Carvedilol, ASA, Plavix (6) Diabetes mellitus type 2 with complications: Hypoglycemic today as discussed above. Hgb A1C 7.4 on 11/26. PO intake has been variable. Follow BSG's. Titrate insulin therapy. (7) Dementia: May have Alzheimer's disease, vascular dementia, or a combination of the two. Monitor for delirium. (8) Decubitus ulcer: Present on admission. Local care. Reposition. Consult Wound Care Nursing. (9) Do not resuscitate status: Per previous discussions. (10) DVT prophylaxis: SQ heparin. (11) Discharge planning issues: Anticipated return to [facility]. Subjective ff up for AMS seen sitting up in bed, awake, alert not oriented but conversant denies headache, dizziness, nausea states breathing is fine, no cough denies abdominal pain no other symptoms Physical Exam Vital Signs (Past 24 Hours): Last Vital Signs Temp 37.2 C 12/09/18 07:29 Pulse 79 12/09/18 07:29 Resp 16 12/09/18 07:29 BP 133/77 12/09/18 07:29 Pulse Ox 94 12/09/18 07:29 Physical Exam: General-not oriented, not in distress, speaks in sentences with no effort or accessory muscle use Eyes- anicteric Neck- no JVD Lungs- clear breath sounds bilaterally, no rales/wheezes Heart- normal rate, regular rhythm; no murmurs Abdomen- normal bowel sounds, nondistended, soft, nontender Extremities- no pretibial edema, no calf tenderness Neuro- alert, oriented x 3; no gross focal neurologic deficits Skin- warm & dry Results & Data Laboratory Results noted and reviewed (1) CAD (coronary artery disease) Associated angina: without angina Coronary Disease-Associated Artery/Lesion type: [place] artery [place] vs. transplanted heart: [place] heart Qualified Code(s): I25.10 - Atherosclerotic heart disease of [place] coronary artery without angina pectoris (2) Dementia Dementia behavioral disturbance: without behavioral disturbance Dementia type: unspecified type Qualified Code(s): F03.90 - Unspecified dementia without behavioral disturbance
--- NOTE | 2018-12-09 11:22 | Pharmacy Report ---
Pharmacy Abx Dose Short Note - Date of Service December 09, 2018 - Assessment & Plan Assessment * 73 year old F admitted with acute mental status changes, likely secondary to hypoglycemia * L basailar opacity noted on CXR * UA suggestive of possible UTI * Empiric VANCOMYCIN + CEFEPIME ordered * Blood and urine cxs are pending * Nasal swab was negative for MRSA - lessening likelihood of MRSA pna Plan Vancomycin * Loading dose was not given in the ED. Rather the patient only received 1000mg (~11mg/kg) x 1. * Overnight RPH gave 1250mg IV (~13.4mg/kg) at 0200 due to lack of full loading dose * Maint dose: 1250mg IV Q 12 hrs * Goal trough level for possible pulm infxn : 15 to 20 mcg/mL * Trough level will be checked w/ 4th 1250mg dose if therapy is to continue Cefepime * 1gm Q 8 hrs initiated overnight, will increase to 2gm IV Q 8 hrs for possible pulm infxn and eCrCl 70-80cc/min Pharmacy will continue to follow and will adjust dose/frequency as necessary. Thank you.
[2018-12-09] MEDS: CEFEPIME 2,000 MG in SYRINGE 7.5 ML IV SCH ×2 (12:06→20:30)
--- NOTE | 2018-12-09 13:23 | Neurology Consultation ---
Date of Consultation December 09, 2018 Assessment & Plan (1) Altered mental status: 1. CT head- with possible new stroke or extension 2. needs MRI brain for further evaluation 3. continue Plavix 75 mg and aspirin 81 mg daily 4. CTA head and neck done at last visit no high grade stenosis, along with and TTE with 55-60 EF, no ASD 5. blood glucose was 40 at admission patient has a history of not eating would not try for optimial control 6. lipitor for cholestrol issues continue 7. HTN- optimize consider patient age and keep well hydrated to avoid hypotension 8. recommended at last visit ZIO as outpatient. Supervising Physician Co-Signing Physician Notes I have seen and discussed above patient with Dr Jonas Mclaughlin, neurology I seen and examined Mrs. Guaman today and reviewed her history her imaging studies and have discussed her case with Poppy Brooks PA-C. 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 Practice suspect that she was hypoglycemic, her old symptoms due to the previous stroke were accentuated and that her episodic confusion which was an issue before simply became more evident. Unfortunately we do need an MRI now to assess whether or not the abnormalities described in the left hemisphere on CT are indeed real and if so potential diagnosis of cardioembolic events related in a single deep right hemispheric small vessel mediated event several weeks ago. Decision making obviously will rely on the results of the MRI scan and we will follow-up tomorrow once this is done and make further recommendations done. She has had quite a thorough workup during her last hospitalization for cardioembolic events with an essentially normal echo with bubble study in fact was on deck to have an outpatient ZIO patch if indeed there is a new infarction the only possible additional echocardiographic study that might be considered to be a transesophageal echo to assess for aortic plaque but perhaps some of the newer echo technology would be sensitive enough we can simply repeat a transthoracic study to address this question. We may get cardiology involved regarding this decision if indeed we do see evidence for a new infarct in the left hemisphere If no infarction seen and no additional workup is necessary and we can continue with the outpatien ZIO patch which was planned anyway Jonas Mclaughlin MD History of Present Illness Reason for Consultation: recent stroke ? ext and or new event Requesting Physician: Errol Dobson MD Attending Physician: Errol Dobson MD History of Present Illness Zuleyka is a 73 year old female with PMH of CAD hx of stents, DM2, HTN, HLD, dementia, gout, monoclonal gammopathy, depression, fibromyalgia who presented 11/26/2018- 11/29/2018 to ED with L sided weakness, x 1 day, She is a resident of [facility]. She has been at [facility] since July of 2018 after a hospitalization at [facility]. Prior to the hospitalizations she was driving and caring for herself but was showing signs of dementia. She stopped taking her medications and was not eating. She was found to have a blood glucose of over 480 at that admission. She didn't recognize her daughter and was not oriented. After her admission to [facility] she did recognize her daughter and was able to participate in PT. She is mostly bedbound and was noted to have L sided facial droop, difficulty drinking from a straw and gripping on the left. She presented on 12/08/2018 with event of confusion and was found to have a blood sugar of 40. A CT head was done with mention of possible extension of event or new event. denies CP, SOB, abdominal pain, N, V, vision changes, swallowing issues. No family are in the room. Allergies Allergy/AdvReac Type Severity Reaction Status Date / Time etodolac Allergy Unknown . Verified 12/08/18 18:19 tolmetin Allergy Unknown . Verified 12/08/18 18:19 adhesive Allergy Unknown Unverified 12/08/18 18:19 ciprofloxacin [From Cipro] Allergy Unknown Unverified 12/08/18 18:19 iodine Allergy Unknown Unverified 12/08/18 18:19 Home Medications Home Medications Medication Instructions Recorded Confirmed Type Calmoseptine 1 applic TOPICAL DAILY PRN 11/26/18 12/08/18 History Calmoseptine 1 applic TOPICAL TID 11/26/18 12/08/18 History Fleet Enema [address] DAILY PRN 11/26/18 12/08/18 History Glucagon Emergency Kit (human) 1 dose SUBCUT DIRECTED 11/26/18 12/08/18 History Lantus U-100 Insulin 50 unit SUBCUT BID 11/26/18 12/08/18 History Novolog U-100 Insulin aspart 20 unit SUBCUT QPM 11/26/18 12/08/18 History Novolog U-100 Insulin aspart 30 unit SUBCUT BIDM 11/26/18 12/08/18 History Refresh Celluvisc 1 drp OPHTHALMIC (EYE) TID 11/26/18 12/08/18 History acetaminophen 500 mg PO Q6H PRN 11/26/18 12/08/18 History acetaminophen [Tylenol Extra 500 mg PO QID 11/26/18 12/08/18 History Strength] allopurinol 200 mg PO QAM 11/26/18 12/08/18 History ascorbic acid (vitamin C) [Vitamin 1,000 mg PO QAM 11/26/18 12/08/18 History C] aspirin 162 mg PO QAM 11/26/18 12/08/18 History bisacodyl [Dulcolax (bisacodyl)] [address] DAILY PRN 11/26/18 12/08/18 History carvedilol [Coreg] 3.125 mg PO BID 11/26/18 12/08/18 History cholecalciferol (vitamin D3) 1,000 unit PO QAM 11/26/18 12/08/18 History [Vitamin D3] citalopram 20 mg PO QAM 11/26/18 12/08/18 History clopidogrel [Plavix] 75 mg PO QAM 11/26/18 12/08/18 History dextrose [Glucose Gel] 1 dose PO DIRECTED PRN 11/26/18 12/08/18 History folic acid 1 mg PO QAM 11/26/18 12/08/18 History lisinopril 20 mg PO QAM 11/26/18 12/08/18 History magnesium hydroxide [Milk of 30 ml PO DAILY PRN 11/26/18 12/08/18 History Magnesia] methenamine hippurate 1 g PO BIDM 11/26/18 12/08/18 History multivitamin 1 tab PO QAM 11/26/18 12/08/18 History pantoprazole [Protonix] 40 mg PO QAM 11/26/18 12/08/18 History promethazine 25 mg PO Q6H PRN 11/26/18 12/08/18 History sennosides-docusate sodium 2 tab PO BID 11/26/18 12/08/18 History [Senna-S] atorvastatin 40 mg PO HS #30 tab 11/29/18 12/08/18 Rx heparin (porcine) 5,000 units SQ Q12H #10 ml 11/29/18 12/08/18 Rx Patient History Medical History GERD (gastroesophageal reflux disease) (Chronic) severe GERD noted on UGI 12/05/18 Cerebrovascular disease (Chronic) Do not resuscitate status (Chronic) Diabetes mellitus type 2 with complications (Chronic) HLD (hyperlipidemia) (Chronic) Dementia (Chronic) Depression (Chronic) CAD (coronary artery disease) (Chronic) PVD (peripheral vascular disease) (Chronic) IBS (irritable bowel syndrome) (Chronic) Hypertension (Chronic) Surgical History History of partial colectomy (Chronic) History of tonsillectomy and adenoidectomy (Chronic) History of cholecystectomy (Chronic) History of shoulder surgery (Chronic) History of percutaneous coronary intervention (Chronic) Family History Mother Heart disease Diabetes Brother Colorectal cancer Brother Lung cancer Daughter Diabetes Other Family history non-contributory Social History Preferred Language: Armenian Communication Ability: Impaired Communication Ability Comment: Slightly impaired d/t hx of dementia 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 Beliefs That Will Affect Care: Roman Catholic Current Living Situation: Shelter Current Living Situation Comment: [facility] other: Bed Bound Feels Safe at Home: Yes Smoking Status: Former smoker Hx Alcohol Use: No Hx Substance Use: No Physical Exam Vital Signs (Past 24 Hours): Last Vital Signs Temp 36.7 C 12/09/18 11:32 Pulse 67 12/09/18 12:07 Resp 16 12/09/18 11:32 BP 173/85 H 12/09/18 12:07 Pulse Ox 98 12/09/18 11:32 Physical Exam: Constitutional: appearance over nourished Ears, Nose, Mouth and Throat: mucous membranes moist, no injection and skin normal, eyes normal Cardiovascular: normal S-1 and S-2 and regular rate and rhythm Respiratory: course breath sounds Musculoskeletal: non pitting peripheral edema Skin: no stigmata of neurocutaneous disease noted and normal and intact Eyes: extraocular muscles intact (EOMI) and pupils equal, round and reactive to light (PERRL) NEUROLOGIC EXAMINATION: Mental status: Alert and interactive Oriented no oriented to place or year, or president Oriented to person Speech dysphasia with some words Cranial Nerves smile eye brow raise symmetric -flattening of nasolabial fold on left Reflexes: Deep tendon reflexes were symmetrical and graded 2/5. Sensory: decreased sensation to vibration bilaterally LE from joy to toes. cool touch intact Coordination: finger to nose on right no bi pass, left dysmetric Gait/Stance: Posture sitting in bed Motor: pronator slight drift on left Strength: hand round cutter operator left 4/5, lifts legs slightly bilaterally LE, plantar flex ext 5/5 Results & Data Laboratory Results Abnormal lab results 12/08/18 12/08/18 12/08/18 Range/Units 16:41 16:41 17:05 RDW Std Deviation 52.8 H (36.4-46.3) fL RDW Coeff of Dougie 15.0 H (11.5-14.5) % MPV 11.2 H (7.4-10.4) fL VBG pH (7.36-7.41) VBG pCO2 (38-50) mmHg Chloride (98-107) mmol/L BUN 19 H (7-18) mg/dl Creatinine (0.6-1.2) mg/dl BUN/Creatinine Ratio 23.1 H (10-20) Glucose 144 H (70-99) mg/dl POC Glucose 176 H (70-99) Hemoglobin A1c (4.5-5.6) % Albumin 3.1 L (3.4-5.0) gm/dl Triglycerides (0-150) mg/dl Lipase 56 L (73-393) U/L Urine Appearance (Clear) Urine Protein (Negative) Urine Ketones (Negative) Ur Leukocyte Esterase (Negative) Urine WBC (Auto) (0-5) /hpf U Hyaline Cast (Auto) (0-5) /lpf U Epithel Cells (Auto) (0-5) /lpf 12/08/18 12/08/18 12/08/18 Range/Units 18:21 18:26 18:37 RDW Std Deviation (36.4-46.3) fL RDW Coeff of Dougie (11.5-14.5) % MPV (7.4-10.4) fL VBG pH 7.31 L (7.36-7.41) VBG pCO2 59 H (38-50) mmHg Chloride (98-107) mmol/L BUN (7-18) mg/dl Creatinine (0.6-1.2) mg/dl BUN/Creatinine Ratio (10-20) Glucose (70-99) mg/dl POC Glucose 185 H (70-99) Hemoglobin A1c (4.5-5.6) % Albumin (3.4-5.0) gm/dl Triglycerides (0-150) mg/dl Lipase (73-393) U/L Urine Appearance Cloudy H (Clear) Urine Protein 1+ H (Negative) Urine Ketones Trace H (Negative) Ur Leukocyte Esterase 2+ H (Negative) Urine WBC (Auto) >30 H (0-5) /hpf U Hyaline Cast (Auto) 5-10 H (0-5) /lpf U Epithel Cells (Auto) >30 H (0-5) /lpf 12/08/18 12/08/18 12/08/18 Range/Units 23:03 23:05 23:54 RDW Std Deviation (36.4-46.3) fL RDW Coeff of Dougie (11.5-14.5) % MPV (7.4-10.4) fL VBG pH (7.36-7.41) VBG pCO2 (38-50) mmHg Chloride (98-107) mmol/L BUN (7-18) mg/dl Creatinine (0.6-1.2) mg/dl BUN/Creatinine Ratio (10-20) Glucose (70-99) mg/dl POC Glucose 61 L* 63 L* 111 H (70-99) Hemoglobin A1c (4.5-5.6) % Albumin (3.4-5.0) gm/dl Triglycerides (0-150) mg/dl Lipase (73-393) U/L Urine Appearance (Clear) Urine Protein (Negative) Urine Ketones (Negative) Ur Leukocyte Esterase (Negative) Urine WBC (Auto) (0-5) /hpf U Hyaline Cast (Auto) (0-5) /lpf U Epithel Cells (Auto) (0-5) /lpf 12/09/18 12/09/18 12/09/18 Range/Units 05:20 05:21 06:32 RDW Std Deviation (36.4-46.3) fL RDW Coeff of Dougie (11.5-14.5) % MPV (7.4-10.4) fL VBG pH (7.36-7.41) VBG pCO2 (38-50) mmHg Chloride (98-107) mmol/L BUN (7-18) mg/dl Creatinine (0.6-1.2) mg/dl BUN/Creatinine Ratio (10-20) Glucose (70-99) mg/dl POC Glucose 138 H 124 H (70-99) Hemoglobin A1c 7.0 H (4.5-5.6) % Albumin (3.4-5.0) gm/dl Triglycerides (0-150) mg/dl Lipase (73-393) U/L Urine Appearance (Clear) Urine Protein (Negative) Urine Ketones (Negative) Ur Leukocyte Esterase (Negative) Urine WBC (Auto) (0-5) /hpf U Hyaline Cast (Auto) (0-5) /lpf U Epithel Cells (Auto) (0-5) /lpf 12/09/18 12/09/18 Range/Units 06:32 11:54 RDW Std Deviation (36.4-46.3) fL RDW Coeff of Dougie (11.5-14.5) % MPV (7.4-10.4) fL VBG pH (7.36-7.41) VBG pCO2 (38-50) mmHg Chloride 109 H (98-107) mmol/L BUN (7-18) mg/dl Creatinine 0.54 L (0.6-1.2) mg/dl BUN/Creatinine Ratio 27.8 H (10-20) Glucose 126 H (70-99) mg/dl POC Glucose 158 H (70-99) Hemoglobin A1c (4.5-5.6) % Albumin (3.4-5.0) gm/dl Triglycerides 192 H (0-150) mg/dl Lipase (73-393) U/L Urine Appearance (Clear) Urine Protein (Negative) Urine Ketones (Negative) Ur Leukocyte Esterase (Negative) Urine WBC (Auto) (0-5) /hpf U Hyaline Cast (Auto) (0-5) /lpf U Epithel Cells (Auto) (0-5) /lpf Diagnostic Findings CXR- Apparent hazy left basilar opacity with a possible small left pleural eff usion. Artifact is favored however a pleural effusion with atelectasis/consolidation could appear similar. CT head-No acute intracranial hemorrhage or mass effect. Increase in extent of a 1.4 cm subacute infarct within the right centrum semiovale ovale since MRI of November 26, 2018. Interval development of a possible additional 1.3 cm infarct within the periventricular left parietal lobe since previous MRI.
[2018-12-09] MEDS: CITALOPRAM 20 MG TAB PO SCH (13:33)
[2018-12-09] MEDS: CLOPIDOGREL BISULFATE 75 MG TAB PO SCH (13:33)
[2018-12-09] MEDS ORDERED: Nursing to Pharmacy Communication ONE (15:29)
--- NOTE | 2018-12-09 17:39 | Magnetic Resonance Report ---
MRI OF THE BRAIN WITHOUT IV CONTRAST CLINICAL HISTORY: Strokelike symptoms. COMPARISON STUDY: CT of the brain dated 12/08/2018. MRI of the brain dated 11/26/2018. TECHNIQUE: MRI of the brain was performed utilizing various T1 and T2-weighted sequences in the axial , sagittal, and coronal planes. IV contrast was not administered for this examination. The examinatio n is degraded by motion artifact. FINDINGS: Brain parenchyma: There is an approximately 2 cm focus of restricted diffusion identified within the right centrum semiovale. Smaller foci of restricted diffusion are seen in the right romero radiata as well as the posterior left romero radiata consistent with acute to subacute ischemia. No additional foci of restricted diffusion are identified. There is age-related involutional change noting moderate subcortical and periventricular microangiopathic disease. There is no hemorrhage or mass effect. Chr onic infarcts identified within the right thalamus, the rossy, the cerebellum. No extra-axial fluid co llection is seen. The cerebellar tonsils are normal in configuration. Ventricles, sulci, and cisterns: Prominent secondary to involutional change. Pituitary and sella: Partially empty sella is incidentally noted. Intracranial vasculature: Normal flow voids are maintained at the skull base. Orbits: The bony orbits are grossly intact. Orbital contents are normal in appearance. Sinuses and mastoids: Clear. Calvarium: Unremarkable. Cervical cord: Partially visualized cervical spinal cord is normal in morphology and signal intensity . IMPRESSION: 1. There are foci of restricted diffusion seen within the right centrum semiovale and the romero radi chiara bilaterally consistent with acute to subacute ischemia. The bilateral distribution suggests embol ic origin. 2. There is no hemorrhage or mass effect. 3. Additional findings as above. Electronically signed by: Charlie Fernandes M.D. 12/09/2018 5:38 PM
[2018-12-09] MEDS: ATORVASTATIN 40 MG TAB PO SCH (20:30)
[2018-12-09] MEDS: CARVEDILOL 3.125 MG TAB PO SCH (20:30)
[2018-12-09] MEDS: DOCUSATE SODIUM/SENNA 50/8.6MG TAB PO SCH (20:30)
[2018-12-09] MEDS ORDERED: CEFEPIME CONSULT ACTIVE PRN (22:26)
[2018-12-10] MEDS: D5W AND LACTATED RINGERS 1,000 ML IV SCH ×2 (00:34→08:21)
[2018-12-10] MEDS: HEPARIN SOD 5,000 UNIT/0.5 ML VIAL SQ SCH ×2 (00:34→08:33)
[2018-12-10] MEDS: CEFEPIME 2,000 MG in SYRINGE 7.5 ML IV SCH ×3 (04:39→21:00)
[2018-12-10 06:40] LABS: BUN Creatinine Ratio 12.2 (10-20); Calcium 8.9 mg/dl (8.5-10.1); Creatinine Clr Calc Pharmacy 82.4 ml/min; Est GFR (African American) 99.6; Potassium 4.7 mmol/L (3.5-5.1)
[2018-12-10] MEDS: INSULIN ASPART 100 UNITS/ML 3 ML PEN SC SCH ×4 (08:32→20:44)
[2018-12-10] MEDS: CITALOPRAM 20 MG TAB PO SCH (08:48)
[2018-12-10] MEDS: CARVEDILOL 3.125 MG TAB PO SCH ×2 (08:48→20:41)
[2018-12-10] MEDS: ARTIFICIAL TEARS OP SCH ×3 (08:48→20:43)
[2018-12-10] MEDS: FOLIC ACID 1 MG TAB PO SCH (08:49)
[2018-12-10] MEDS: ASPIRIN 81 MG ECTAB PO SCH (08:49)
[2018-12-10] MEDS: DOCUSATE SODIUM/SENNA 50/8.6MG TAB PO SCH ×2 (08:50→20:42)
[2018-12-10] MEDS: PANTOprazole 40 MG TAB PO SCH (08:50)
[2018-12-10] MEDS: CLOPIDOGREL BISULFATE 75 MG TAB PO SCH (08:50)
[2018-12-10] MEDS: ALLOPURINOL 100 MG TAB PO SCH (08:51)
[2018-12-10] MEDS ORDERED: PHARMACY GLYCEMIC MGMT CONSULT SCH (10:08)
[2018-12-10] MEDS ORDERED: INSULIN GLARGINE 100 UNIT/ML VIAL SC ONE (10:30)
--- NOTE | 2018-12-10 10:35 | Pharmacy Report ---
Pharmacy Glycemic Short Note 2 - Date of Service December 10, 2018 - Glycemic Short BSG Results (Last 24 hours): 12/09/18 12/09/18 12/09/18 11:54 17:02 20:11 Glucose POC Glucose 158 H 216 H 216 H 12/10/18 12/10/18 05:38 07:20 Glucose 256 H POC Glucose 273 H OUTPATIENT ANTIDIABETIC REGIMEN (per med rec): * Lantus 50 units BID * Novolog 30 units w/ breakfast + 30 units w/ lunch + 20 units w/ dinner * A1c = 7.0% 12/09/18 The patient is currently receiving: * Basal insulin: None * Correctional Insulin: Novolog Correction per scale ACHS Goal Range: Low 140 mg/dL - High 180 mg/dL Correction Factor: 30 mg/dL/unit * Prandial insulin: Per carb ratio of 1 unit per 10 grams CHO consumed ASSESSMENT: * Type 2 diabetic admitted w/ mental status changes, hypoglycemia, possible UTI, possible PNA * Basal insulin has been on hold since admission secondary to initial hypoglycemia. Fasting BSG is > 250 this AM, will resume basal at this time. * Patient was recently hospitalized. Prior insulin doses and BSGs reviewed. Will based Lantus and Novolog doses loosely upon those that performed well on prior admission (will empirically reduce the Lantus dose due to recent hypoglycemia). PLAN FOR INPATIENT GLYCEMIC CONTROL: * Basal insulin * Lantus 40 units SQ BID * Bolus insulin * NovoLog per scale ACHS or Q6hrs while NPO * Goal Range: Low 120 mg/dL - High 150 mg/dL * Correction Factor: 15 mg/dL/unit * Nutritional / Prandial insulin per carb ratio of 1 unit per 5 grams CHO consumed PLAN FOR DISCHARGE: * to be determined
--- NOTE | 2018-12-10 10:43 | Hospitalist Progress Note ---
Date of Service December 10, 2018 Assessment & Plan (1) Acute CVA (cerebrovascular accident): Brain MRI confirms acute to subacute bilateral romero radiata infarcts Previous right centrum ovale infarct noted Suggesting embolic phenomena Patient currently on aspirin, Plavix, atorvastatin This morning, patient #2 monitor demonstrated atrial fibrillation in RVR lasting 16 seconds May have underlying proximal atrial fibrillation Since chadsvasc score is at least 5 We will consult cardiology for regarding anticoagulation (2) Paroxysmal A-fib: Management as noted above (3) Altered mental status: possible multifactorial: New CVA, hypoglycemia, possible PNA and UTI Management of CVA noted above Possible PNA IMPRESSION: Apparent hazy left basilar opacity with a possible small left pleural effusion. Artifact is favored however a pleural effusion with atelectasis/consolidation could appear similar. Remains afebrile No leukocytosis --Blood cultures negative Patient denies coughing, shortness of breath --If afebrile for the next 24 hours, discontinue antibiotics and observe Possible UTI Urine cultures negative If afebrile for next 24 hours discontinue antibiotics and observe Management of Hypoglycemia noted below (4) Hypoglycemia: Blood sugar was 40 at the fpc. Family reports variable oral intake, but apparently was continued with usual insulin dosing Insulin Sliding Scale for now Glycemic control consult placed (5) Hypotension: Blood pressure on arrival to ED was 85/47 and improved with fluid resuscitation. likely from volume depletion resolved Maintain blood pressure on the higher side in light of acute CVA (6) Cerebrovascular disease: Management per #1 (7) CAD (coronary artery disease): Serum troponin normal. continue Carvedilol, ASA, Plavix (8) Diabetes mellitus type 2 with complications: Hypoglycemic on admission day as discussed above. Hgb A1C 7.4 on 11/26. PO intake has been variable. Follow BSG's. Titrate insulin therapy. (9) Dementia: May have Alzheimer's disease, vascular dementia, or a combination of the two. Monitor for delirium. (10) Decubitus ulcer: Present on admission. Local care. Reposition. Consult Wound Care Nursing. (11) Do not resuscitate status: Per previous discussions. (12) DVT prophylaxis: SQ heparin. (13) Discharge planning issues: Anticipated return to [facility]. Subjective ff up for altered mental status This morning telemetry monitoring revealed episode of atrial fibrillation lasting for about 16 seconds Patient was not having any symptoms, resting in bed On exam, the patient is awake, alert, conversant although still confused Denies headache, dizziness, chest pain, palpitations, shortness of breath Denies any weakness or numbness or any neurologic symptoms Was able to eat her breakfast independently per rn staff Support rn staff who took care of the patient during last admission, the patient seems to be more alert and brighter today Denies cough, shortness of breath, sputum, urinary symptoms, abdominal pain Physical Exam Vital Signs (Past 24 Hours): Last Vital Signs Temp 36.7 C 12/10/18 07:41 Pulse 77 12/10/18 07:41 Resp 16 12/10/18 07:41 BP 137/75 12/10/18 07:41 Pulse Ox 95 12/10/18 07:41 Physical Exam: General- confused, not in distress, speaks in sentences with no effort or accessory muscle use Eyes- anicteric Neck- no JVD Lungs- clear breath sounds bilaterally, no crackles, no wheezing Heart- normal rate, regular rhythm; no murmurs Abdomen- normal bowel sounds, nondistended, soft, nontender Extremities- no pretibial edema, no calf tenderness Neuro- alert, not oriented, CN 2-12 grossly intact, strength left side 4 out of 5, right side 5/5 sensation intact Skin- warm & dry Results & Data Laboratory Results Laboratory Results - last 24 hr 12/09/18 12/09/18 12/09/18 11:54 17:02 20:11 Sodium Potassium Chloride Carbon Dioxide Anion Gap BUN Creatinine Est Cr Clr Drug Dosing Est GFR ( Amer) Est GFR (Non-Af Amer) BUN/Creatinine Ratio Glucose POC Glucose 158 H 216 H 216 H Calcium Specimen Hemolysis 12/10/18 12/10/18 05:38 07:20 Sodium 142 Potassium 4.7 Chloride 110 H Carbon Dioxide 26 Anion Gap 6.0 BUN 9 D Creatinine 0.70 Est Cr Clr Drug Dosing 82.4 Est GFR ( Amer) 99.6 Est GFR (Non-Af Amer) 86.0 BUN/Creatinine Ratio 12.2 Glucose 256 H POC Glucose 273 H Calcium 8.9 Specimen Hemolysis (1) CAD (coronary artery disease) Associated angina: without angina Coronary Disease-Associated Artery/Lesion type: [place] artery [place] vs. transplanted heart: [place] heart Qualified Code(s): I25.10 - Atherosclerotic heart disease of [place] coronary artery without angina pectoris (2) Dementia Dementia behavioral disturbance: without behavioral disturbance Dementia type: unspecified type Qualified Code(s): F03.90 - Unspecified dementia without behavioral disturbance
--- NOTE | 2018-12-10 10:58 | Cardiology Consultation ---
Date of Consultation December 10, 2018 Assessment & Plan (1) Acute CVA (cerebrovascular accident): (2) Paroxysmal A-fib: The patient has had 2 recent stroke episodes despite chronic treatment with dual antiplatelet therapy aspirin and clopidogrel. The most recent MRI of the brain performed this admission is suggestive of embolic etiology as both hemispheres are affected. A recent CT angiogram of the carotids revealed no significant plaque. Echocardiogram revealed normal LV systolic function, with no cardiac source of embolism identified within the resolution of that imaging modality. Patient has had several EKGs on her recent admission as well as current admission all documenting the presence of sinus rhythm. This morning the patient had a 9 beat Speculator of a narrow complex tachycardia. For the most part the R to R interval is regular, but there is a subtle degree of irregularity. It is difficult to determine if this represents supraventricular tachycardia or perhaps atrial fibrillation or atrial flutter. The ventricular rate was about 150 bpm. At present given the patient's presentation, although this short episode of arrhythmia is not definitive for being atrial fibrillation, I believe that is most reasonable to escalate her therapy from dual antiplatelet therapy to aspir in plus Coumadin for secondary prevention of stroke. The clinical presentation of occult atrial fibrillation explaining her recent event certainly would make sense. She has a senior care patient, and therefore she can be followed closely. Her options are to discontinue clopidogrel, bridge her with low-dose heparin without bolus, and load her with Coumadin starting at 5 mg daily for goal INR of 2-3. As an alternative, could continue aspirin plus clopidogrel and start her on Coumadin without heparin bridge and this may be more safe in order to avoid the risk of converting her to intracranial hemorrhage with her recent cerebral injury. Dr Dobson is going to coordinate this with neurology and I will differ placing the orders to him so that there is no duplication. Continue atorvastatin 40 mg daily. Blood pressure is ideally controlled on her current regimen. History of Present Illness Attending Physician: Errol Dobson MD History of Present Illness Zuleyka Fay is a 73 year old female seen in cardiology consultation per the request of Dr Dobson for evaluation of suspected paroxysmal atrial fibrillation with recent recurrent stroke. The patient's primary care provider is Dr. Miguel who follows the patient at [facility]. Patient does not follow with [facility] as an outpatient , however she has a chart history of chronic coronary heart disease, the details of which are not available in her inpatient or outpatient [facility] chart. The patient tells me that she does not have a history of coronary heart disease, but I am not certain that this is reliable. Past medical history as per her inpatient outpatient records is otherwise notable for type 2 diabetes mellitus, stage III chronic kidney disease, hypertension, dyslipidemia, and dementia. The patient had recently been hospitalized at the [facility] last month in November, with diagnosis of an ischemic stroke involving the right centrum semiovale with resultant left hemiparesis. Per review of the admission history and physical performed at the time of that admission on 11/26/2018, the patient had already been on dual antiplatelet therapy with aspirin and clopidogrel at that time. Ultimately she was discharged on the same antiplatelet regimen. She was readmitted on 12/08/2018 with an apparent acute change in mental status, with worsening cognition on top of her baseline dementia. MRI of the brain performed 12/09/2018 revealed foci of restricted diffusion within the right centrum semiovale in the romero radiata bilaterally consistent with acute to subacute ischemia per the radiology report. The radiology report also describes that the bilateral distribution is suggestive of embolic origin. No hemorrhage or mass-effect was noted. Previous lower extremity venous duplex performed on 11/26/2018 revealed no evidence of lower extremity DVT. CT angiogram performed 11/26/2018 revealed no significant stenosis, occlusion, or dissection within the carotid or vertebral arteries. Allergies Allergy/AdvReac Type Severity Reaction Status Date / Time etodolac Allergy Unknown . Verified 12/08/18 18:19 tolmetin Allergy Unknown . Verified 12/08/18 18:19 adhesive Allergy Unknown Unverified 12/08/18 18:19 ciprofloxacin [From Cipro] Allergy Unknown Unverified 12/08/18 18:19 iodine Allergy Unknown Unverified 12/08/18 18:19 Home Medications Home Medications Medication Instructions Recorded Confirmed Type Calmoseptine 1 applic TOPICAL DAILY PRN 11/26/18 12/08/18 History Calmoseptine 1 applic TOPICAL TID 11/26/18 12/08/18 History Fleet Enema 118 ml [place] DAILY PRN 11/26/18 12/08/18 History Glucagon Emergency Kit (human) 1 dose SUBCUT DIRECTED 11/26/18 12/08/18 History Lantus U-100 Insulin 50 unit SUBCUT BID 11/26/18 12/08/18 History Novolog U-100 Insulin aspart 20 unit SUBCUT QPM 11/26/18 12/08/18 History Novolog U-100 Insulin aspart 30 unit SUBCUT BIDM 11/26/18 12/08/18 History Refresh Celluvisc 1 drp OPHTHALMIC (EYE) TID 11/26/18 12/08/18 History acetaminophen 500 mg PO Q6H PRN 11/26/18 12/08/18 History acetaminophen [Tylenol Extra 500 mg PO QID 11/26/18 12/08/18 History Strength] allopurinol 200 mg PO QAM 11/26/18 12/08/18 History ascorbic acid (vitamin C) [Vitamin 1,000 mg PO QAM 11/26/18 12/08/18 History C] aspirin 162 mg PO QAM 11/26/18 12/08/18 History bisacodyl [Dulcolax (bisacodyl)] 10 mg [place] DAILY PRN 11/26/18 12/08/18 History carvedilol [Coreg] 3.125 mg PO BID 11/26/18 12/08/18 History cholecalciferol (vitamin D3) 1,000 unit PO QAM 11/26/18 12/08/18 History [Vitamin D3] citalopram 20 mg PO QAM 11/26/18 12/08/18 History clopidogrel [Plavix] 75 mg PO QAM 11/26/18 12/08/18 History dextrose [Glucose Gel] 1 dose PO DIRECTED PRN 11/26/18 12/08/18 History folic acid 1 mg PO QAM 11/26/18 12/08/18 History lisinopril 20 mg PO QAM 11/26/18 12/08/18 History magnesium hydroxide [Milk of 30 ml PO DAILY PRN 11/26/18 12/08/18 History Magnesia] methenamine hippurate 1 g PO BIDM 11/26/18 12/08/18 History multivitamin 1 tab PO QAM 11/26/18 12/08/18 History pantoprazole [Protonix] 40 mg PO QAM 11/26/18 12/08/18 History promethazine 25 mg PO Q6H PRN 11/26/18 12/08/18 History sennosides-docusate sodium 2 tab PO BID 11/26/18 12/08/18 History [Senna-S] atorvastatin 40 mg PO HS #30 tab 11/29/18 12/08/18 Rx heparin (porcine) 5,000 units SQ Q12H #10 ml 11/29/18 12/08/18 Rx Patient History Medical History GERD (gastroesophageal reflux disease) (Chronic) severe GERD noted on UGI 12/05/18 Cerebrovascular disease (Chronic) Do not resuscitate status (Chronic) Diabetes mellitus type 2 with complications (Chronic) HLD (hyperlipidemia) (Chronic) Dementia (Chronic) Depression (Chronic) CAD (coronary artery disease) (Chronic) PVD (peripheral vascular disease) (Chronic) IBS (irritable bowel syndrome) (Chronic) Hypertension (Chronic) Surgical History History of partial colectomy (Chronic) History of tonsillectomy and adenoidectomy (Chronic) History of cholecystectomy (Chronic) History of shoulder surgery (Chronic) History of percutaneous coronary intervention (Chronic) Family History Mother Heart disease Diabetes Brother Colorectal cancer Brother Lung cancer Daughter Diabetes Other Family history non-contributory Social History Preferred Language: Albanian Communication Ability: Impaired Communication Ability Comment: Slightly impaired d/t hx of dementia Events Traffic Controller Required: No Beliefs That Will Affect Care: Rastafari Current Living Situation: Skilled Nursing Current Living Situation Comment: [place] other: Bed Bound Feels Safe at Home: Yes Smoking Status: Former smoker Hx Alcohol Use: No Hx Substance Use: No Review of Systems 10 point review of systems was unobtainable due to the patient's mental status Physical Exam Vital Signs (Past 24 Hours): Last Vital Signs Temp 36.7 C 12/10/18 07:41 Pulse 77 12/10/18 07:41 Resp 16 12/10/18 07:41 BP 137/75 12/10/18 07:41 Pulse Ox 95 12/10/18 07:41 Constitutional: + ill appearing; no acute distress Respiratory: normal respiratory effort, lungs clear to auscultation Cardiovascular: RRR, no murmur, no edema Extremities: no edema Gastrointestinal (Abdomen): normal bowel sounds, soft, nontender, no hepatosplenomegaly Neurologic: Expressive aphasia noted versus underlying cognitive impairment, subtle left facial droop,Left upper extremity hemiparesis, moves both feet/toes spontaneously on command. Results & Data Diagnostic Findings EKG performed 12/08/2018 reviewed independently revealed normal sinus rhythm at 61 bpm with poor R wave progression. An echocardiogram had been performed on 11/27/2018. The images were reviewed independently today by the undersigned. The biventricular chamber size was normal. Left atrial chamber size was normal. Mild mitral annular calcification was present. Normal right ventricular chamber size and systolic function. Normal left ventricular chamber size and systolic function. Contrast images excluded the presence of left ventricular mural thrombus. There is no atrial septal defect however the resolution which is insufficient to exclude a PFO. Sinus rhythm in the range of 90 bpm was present during the echocardiogram.
[2018-12-10] MEDS ORDERED: Heparin IV Low Dose *NO* Bolus IV SCH (11:15)
[2018-12-10] MEDS: HEPARIN SODIUM/DEXTROSE 25,000 UNITS/500 ML BAG IV SCH (12:00)
[2018-12-10] MEDS ORDERED: VANCOMYCIN TROUGH ONE (13:30)
--- NOTE | 2018-12-10 14:41 | Neurology Progress Note ---
Date of Service December 10, 2018 Assessment & Plan (1) Altered mental status: 1. CT head- with possible new stroke or extension 2. MRI brain new ischemic strokes 3. stop plavix 75 mg, continue aspirin 81 mg. heparin gtt started and cardiology for start transition to coumadin 4. CTA head and neck done at last visit no high grade stenosis, along with and TTE with 55-60 EF, no ASD 5. blood glucose was 40 at admission patient has a history of not eating would not try for optimial control 6. lipitor for cholestrol issues continue 7. HTN- optimize consider patient age and keep well hydrated to avoid hypotension 8. recommended at last visit [facility] as outpatient. could be done but she has failed dual antiplatelet therapy so transition to coag is needed regardless if she is in a fib or not. follow with neurology in 4-6 weeks Poppy Brooks PAC schedule will sign off for now will be available for questions concerns. Supervising Physician Co-Signing Physician Notes I have seen and discussed above patient with Dr Jonas Mclaughlin, neurology I saw Mrs. Fay today evaluated her and agree with Poppy Brooks PA-C that she appears a little brighter but she still pretty disoriented as a lot of left- sided neglect and is lethargic and appears dazed and confused most of the time. She has gone into atrial fibrillation The MRI scan shows multiple embolic infarctions involving both hemispheres She is currently on heparin with plans to swing her over the Coumadin and apparently is not a candidate for a novel anticoagulant at this time. She will undoubtedly need rehabilitation efforts, physical therapy, speech therapy etc. after discharge Neurology can see her 6 weeks or so after she has been discharged from hospital and perhaps after she is been discharged from rehabilitation really do not have a lot more suggestions here other than to place her on anticoagulation in light of the atrial fibrillation which in retrospect was probably the cause of the small vessel appearing event deep in the right hemisphere. Tourniquet have both small vessel disease and embolic disease but the dissection here is totally academic as Coumadin is currently the treatment of choice and we would only add an antiplatelet drug if she would continue to have small vessel events or further embolic events despite adequate INR levels Neurology is going to sign off for now but would be happy to reevaluate her if anything changes during her current hospital stay. Jonas Gardiner is a 73 year old female with PMH of CAD hx of stents, DM2, HTN, HLD, d ementia, gout, monoclonal gammopathy, depression, fibromyalgia who presented 11/26/2018- 11/29/2018 to ED with L sided weakness, x 1 day, She is a resident of [facility]. She has been at [facility] since July of 2018 after a hospitalization at [facility]. Prior to the hospitalizations she was driving and caring for herself but was showing signs of dementia. She stopped taking her medications and was not eating. She was found to have a blood glucose of over 480 at that admission. She didn't recognize her daughter and was not oriented. After her admission to [facility] she did recognize her daughter and was able to participate in PT. She is mostly bedbound and was noted to have L sided facial droop, difficulty drinking from a straw and gripping on the left. She presented on 12/08/2018 with event of confusion and was found to have a blood sugar of 40. A CT head was done with mention of possible extension of event or new event. MRI was completed and she has multiple new infarcts in numerous territories. She was found to be in afib. She is aware she had new strokes. denies CP, SOB, abdominal pain, N, V, vision changes, swallowing issues. No family are in the room. Physical Exam Vital Signs (Past 24 Hours): Last Vital Signs Temp 37 C 12/10/18 12:01 Pulse 77 12/10/18 07:41 Resp 16 12/10/18 12:01 BP 162/73 H 12/10/18 12:01 Pulse Ox 97 12/10/18 12:01 Gen: alert NAD lungs course breath sounds CV RRR squeezes with right hand biceps triceps 4+5, left hand biceps triceps 2/5 slurred speech oriented to self but not hospital or year Results & Data Laboratory Results Abnormal lab results 12/09/18 12/09/18 12/10/18 Range/Units 17:02 20:11 05:38 Chloride 110 H (98-107) mmol/L Glucose 256 H (70-99) mg/dl POC Glucose 216 H 216 H (70-99) 12/10/18 12/10/18 Range/Units 07:20 11:27 Chloride (98-107) mmol/L Glucose (70-99) mg/dl POC Glucose 273 H 232 H (70-99) Diagnostic Findings MRI brain -There are foci of restricted diffusion seen within the right centrum semiovale and the romero radiata bilaterally consistent with acute to subacute ischemia. The bilateral distribution suggests embolic origin. There is no hemorrhage or mass effect.
[2018-12-10 15:48] LABS: INR 1.1 (0.9-1.1)
[2018-12-10 18:53] LABS: Partial Thromboplastin Ratio 2.1
[2018-12-10 19:05] LABS: Partial Thromboplastin Time 56.7 Seconds (21.0-31.0)
[2018-12-10] MEDS: ATORVASTATIN 40 MG TAB PO SCH (20:40)
[2018-12-10] MEDS ORDERED: INSULIN GLARGINE 100 UNIT/ML VIAL SC SCH (21:00)
[2018-12-11] MEDS ORDERED: INSULIN ASPART 100 UNITS/ML 3 ML PEN SC ONE (02:00)
[2018-12-11] MEDS: CEFEPIME 2,000 MG in SYRINGE 7.5 ML IV SCH (04:41)
[2018-12-11 07:50] LABS: Prothrombin Time 10.7 Seconds (9.0-12.0)
--- NOTE | 2018-12-11 07:56 | Pharmacy Report ---
Pharmacy Glycemic Short Note 2 - Date of Service December 11, 2018 - Glycemic Short BSG Results (Last 24 hours): 12/10/18 12/10/18 12/10/18 11:27 16:05 20:23 POC Glucose 232 H 174 H 179 H 12/11/18 12/11/18 02:09 07:24 POC Glucose 128 H 121 H OUTPATIENT ANTIDIABETIC REGIMEN (per med rec): * Lantus 50 units BID * Novolog 30 units w/ breakfast + 30 units w/ lunch + 20 units w/ dinner * A1c = 7.0% 12/09/18 The patient is currently receiving: * Basal insulin: Lantus 40 units SQ BID * Correctional Insulin: Novolog Correction per scale ACHS Goal Range: Low 140 mg/dL - High 180 mg/dL Correction Factor: 15 mg/dL/unit * Prandial insulin: Per carb ratio of 1 unit per 5 grams CHO consumed ASSESSMENT: 12/11 * Over the last 24 hrs, 106 units was administered * Fasting BSG 121 this AM w/ 80 units of Lantus on board * Post-prandial BSGs well controlled with yesterday's CF and CR * It appears that she is eating less carbs than expected. Her current insulin regimen is weighted heavily basal. Will empirically reduce basal insulin dose today should her decreased PO intake continue. 12/10 * Type 2 diabetic admitted w/ mental status changes, hypoglycemia, possible UTI, possible PNA * Basal insulin has been on hold since admission secondary to initial hypoglycemia. Fasting BSG is > 250 this AM, will resume basal at this time. * Patient was recently hospitalized. Prior insulin doses and BSGs reviewed. Will based Lantus and Novolog doses loosely upon those that performed well on prior admission (will empirically reduce the Lantus dose due to recent hypoglycemia). PLAN FOR INPATIENT GLYCEMIC CONTROL: * Basal insulin (decrease) * Lantus 32 units SQ BID * Bolus insulin (no change) * NovoLog per scale ACHS or Q6hrs while NPO * Goal Range: Low 120 mg/dL - High 150 mg/dL * Correction Factor: 15 mg/dL/unit * Nutritional / Prandial insulin per carb ratio of 1 unit per 5 grams CHO consumed PLAN FOR DISCHARGE: * to be determined
[2018-12-11 08:02] LABS: BUN Creatinine Ratio 11.8 (10-20); Calcium 9.5 mg/dl (8.5-10.1); Creatinine Clr Calc Pharmacy 96.1 ml/min; Est GFR (African American) 103.1; Potassium 3.5 mmol/L (3.5-5.1)
[2018-12-11] MEDS: ALLOPURINOL 100 MG TAB PO SCH (08:32)
[2018-12-11] MEDS: CITALOPRAM 20 MG TAB PO SCH (08:33)
[2018-12-11] MEDS: DOCUSATE SODIUM/SENNA 50/8.6MG TAB PO SCH ×2 (08:33→20:50)
[2018-12-11] MEDS: CARVEDILOL 3.125 MG TAB PO SCH ×2 (08:33→20:49)
[2018-12-11] MEDS: ASPIRIN 81 MG ECTAB PO SCH (08:33)
[2018-12-11] MEDS: PANTOprazole 40 MG TAB PO SCH (08:33)
[2018-12-11] MEDS: FOLIC ACID 1 MG TAB PO SCH (08:34)
[2018-12-11] MEDS: ARTIFICIAL TEARS OP SCH ×3 (08:36→20:48)
[2018-12-11] MEDS: INSULIN GLARGINE 100 UNIT/ML VIAL SC SCH ×2 (08:37→20:55)
[2018-12-11] MEDS: INSULIN ASPART 100 UNITS/ML 3 ML PEN SC SCH ×4 (08:44→20:56)
[2018-12-11 08:48] LABS: Partial Thromboplastin Ratio 2.2
[2018-12-11 08:56] LABS: Partial Thromboplastin Time 59.5 Seconds (21.0-31.0)
[2018-12-11] MEDS ORDERED: CEFDINIR 300 MG CAP PO ONE (10:45)
[2018-12-11] MEDS: HEPARIN SODIUM/DEXTROSE 25,000 UNITS/500 ML BAG IV SCH (13:32)
--- NOTE | 2018-12-11 14:20 | Hospitalist Progress Note ---
Date of Service December 11, 2018 Assessment & Plan (1) Acute CVA (cerebrovascular accident): Brain MRI confirms acute to subacute bilateral romero radiata infarcts Previous right centrum ovale infarct noted Suggesting embolic phenomena Echo-normal LV chamber size with mild concentric LVH, normal LV systolic function EF of 55-60%, no segmental left ventricular wall motion abnormalities, grade 1 diastolic dysfunction and poorly visualized valvular structure without significant stenosis. Patient currently on aspirin, Plavix, atorvastatin Cardiology consulted-input appreciated Patient has paroxysmal atrial fibrillation Started on intravenous heparin and Coumadin will be started accordingly Remains stable as of today (2) Paroxysmal A-fib: Management as noted above (3) Altered mental status: possible multifactorial: New CVA, hypoglycemia, possible PNA and UTI Management of CVA noted above Possible PNA IMPRESSION: Apparent hazy left basilar opacity with a possible small left pleural effusion. Artifact is favored however a pleural effusion with atelectasis/consolidation could appear similar. Remains afebrile No leukocytosis Blood cultures negative Patient denies coughing, shortness of breath We will continue antibiotic for total of 7 days Possible UTI Urine cultures negative If afebrile for next 24 hours discontinue antibiotics and observe Management of Hypoglycemia noted below (4) Hypoglycemia: Blood sugar was 40 at the custodial. Family reports variable oral intake, but apparently was continued with usual insulin dosing Insulin Sliding Scale for now Glycemic control consult placed-appreciate input (5) Hypotension: Blood pressure on arrival to ED was 85/47 and improved with fluid resuscitation. likely from volume depletion resolved Maintain blood pressure on the higher side in light of acute CVA (6) Cerebrovascular disease: Management per #1 (7) CAD (coronary artery disease): Serum troponin normal. continue Carvedilol, ASA, Plavix (8) Diabetes mellitus type 2 with complications: Hypoglycemic on admission day as discussed above. Hgb A1C 7.4 on 11/26. PO intake has been variable. Follow BSG's. Titrate insulin therapy. (9) Dementia: May have Alzheimer's disease, vascular dementia, or a combination of the two. Monitor for delirium. (10) Decubitus ulcer: Present on admission. Local care. Reposition. Consult Wound Care Nursing. (11) Do not resuscitate status: Per previous discussions. (12) DVT prophylaxis: SQ heparin. (13) Discharge planning issues: Anticipated return to [facility]. Likely to go back we did well H tomorrow Subjective 12/11 The patient was seen and examined the medical telemetry unit She was admitted with change in mental status and acute CVA Has been feeling increasingly better this morning At baseline he she has been mostly bedbound She denies any symptoms today Physical Exam Vital Signs (Past 24 Hours): Last Vital Signs Temp 37.2 C 12/11/18 11:55 Pulse 72 12/11/18 11:55 Resp 18 12/11/18 11:55 BP 136/77 12/11/18 11:55 Pulse Ox 95 12/11/18 11:55 Physical Exam: No apparent distress at rest Constitutional: WD/WN, vitals as above no acute distress Eyes: PERRL, conjunctivae normal, anicteric sclerae ENMT: external ear and nose normal, oropharynx normal Neck: trachea midline, no thyromegaly Respiratory: normal respiratory effort, lungs clear to auscultation Auscultation: + diminished lung sounds and + rhonchi (few) Cardiovascular: Rate/Rhythm: regular rate Heart Sounds: no gallop, no murmur and no cardiac rub Vessels: no JVD Extremities: normal capillary refill and + edema (trace pretibial); no calf tenderness Gastrointestinal (Abdomen): normal bowel sounds, soft, nontender, no hepatosplenomegaly Musculoskeletal: Head/Neck/Chest: neck supple Extremities: + abnormal strength (patient unable to follow commands; recent left hemiparesis), no cyanosis and no clubbing Skin: no rashes, warm and dry no erythema and no pallor Psychiatric: Orientation: + not alert and + not oriented x 3 Affect: euthymic affect Lymphatic: no cervical lymphadenopathy Results & Data Laboratory Results [facility] 12/11/18 07:04 Sodium 144 Potassium 3.5 D Chloride 106 Carbon Dioxide 31 BUN 7 Creatinine 0.63 Glucose 126 H Calcium 9.5 Medications Administered Current Inpatient Medications Allopurinol (Zyloprim) 200 mg PO QAM [facility] Stop: 01/09/19 08:59 Last Admin: 12/11/18 08:32 Dose: 200 mg Documented by: Artificial Tears (Artificial Tears) 1 drops OP TID [facility] Stop: 01/08/19 08:59 Last Admin: 12/11/18 13:33 Dose: 1 drops Documented by: Aspirin (Ecotrin Ectab) 162 mg PO QAM [facility] Stop: 01/09/19 08:59 Last Admin: 12/11/18 08:33 Dose: 162 mg Documented by: Atorvastatin Calcium (Lipitor) 40 mg PO HS [facility] Stop: 01/08/19 20:59 Last Admin: 12/10/18 20:40 Dose: 40 mg Documented by: Carvedilol (Coreg) 3.125 mg PO BID [facility] Stop: 01/08/19 20:59 Last Admin: 12/11/18 08:33 Dose: 3.125 mg Documented by: Cefdinir (Omnicef) 300 mg PO BID [facility] Stop: 12/15/18 20:59 Citalopram Hydrobromide (Celexa) 20 mg PO QAM [facility] Stop: 01/08/19 12:14 Last Admin: 12/11/18 08:33 Dose: 20 mg Documented by: Dextrose (Dextrose 50%) 25 - 50 ml IV UD PRN; Protocol PRN Reason: Hypoglycemia Protocol Stop: 01/07/19 23:14 Last Admin: 12/08/18 23:36 Dose: 25 ml Documented by: Folic Acid (Folvite) [facility] [place] Stop: 01/09/19 08:59 Last Admin: 12/11/18 08:34 Dose: 1 mg Documented by: Glucagon (Glucagen) 1 mg IM UD PRN; Protocol PRN Reason: Hypoglycemia Protocol Stop: 01/07/19 23:14 Glucose (Glucose 40%) 15 - 30 gm PO UD PRN; Protocol PRN Reason: Hypoglycemia Protocol Stop: 01/07/19 23:14 Glucose (Dex4 Glucose) 4 - 8 tabs PO UD PRN; Protocol PRN Reason: Hypoglycemia Protocol Stop: 01/07/19 23:14 Heparin Sodium/Dextrose (Heparin Sodium/Dextrose) 25,000 units in 500 mls @ 18 mls/hr IV .Q24H [facility]; Protocol Stop: 01/09/19 11:14 Last Admin: 12/11/18 13:32 Dose: 900 units/hr, 18 mls/hr Documented by: Insulin Aspart (Novolog Flexpen) 0 units SC ACHS [facility]; Protocol Stop: 01/08/19 16:29 Last Admin: 12/11/18 13:30 Dose: 4 units Documented by: Insulin Glargine (Lantus) 32 units SC BID [facility]; Protocol Stop: 01/10/19 08:59 Last Admin: 12/11/18 08:37 Dose: 32 units Documented by: Miscellaneous (Carbohydrates For Hypoglycemia) 15 - 30 gm PO UD PRN PRN Reason: Hypoglycemia Treatment Stop: 01/07/19 23:14 Miscellaneous Information (Consult Glycemic Management Pharmacy) 1 ea N/A UD [facility] Stop: 01/09/19 10:07 Pantoprazole Sodium (Protonix) 40 mg PO QAM [facility] Stop: 01/09/19 08:59 Last Admin: 12/11/18 08:33 Dose: 40 mg Documented by: Senna/Docusate Sodium (Senokot S) 2 tab PO BID [facility] Stop: 01/08/19 20:59 Last Admin: 12/11/18 08:33 Dose: 2 tab Documented by: Warfarin Sodium (Coumadin) 5 mg PO DAILY@1600 [facility] Stop: 01/10/19 15:59 (1) CAD (coronary artery disease) Coronary Disease-Associated Artery/Lesion type: [place] artery [place] vs. transplanted heart: [place] heart Associated angina: without angina Qualified Code(s): I25.10 - Atherosclerotic heart disease of [place] coronary artery without angina pectoris (2) Dementia Dementia type: unspecified type Dementia behavioral disturbance: without behavioral disturbance Qualified Code(s): F03.90 - Unspecified dementia without behavioral disturbance
[2018-12-11] MEDS ORDERED: WARFARIN SOD 5 MG TAB PO SCH (16:00)
[2018-12-11] MEDS: ATORVASTATIN 40 MG TAB PO SCH (20:49)
[2018-12-11] MEDS: CEFDINIR 300 MG CAP PO SCH (20:51)
[2018-12-12 07:15] LABS: Hematocrit (blood only) 40.3 % (37-47); Hemoglobin 13.7 g/dL (12.0-16.0); Mean Corpuscular Volume 93.9 fL (80-100); Mean Platelet Volume 11.2 fL (7.4-10.4); Platelet Count 192 K/uL (130-400); RDW Standard Deviation 51.3 fL (36.4-46.3); Red Blood Count 4.29 M/uL (4.2-5.4); White Blood Count 10.57 K/uL (4.8-10.8)
[2018-12-12 07:33] LABS: Creatinine Clr Calc Pharmacy 105.7 ml/min; Est GFR (African American) 106.6
[2018-12-12 07:36] LABS: INR 1.2 (0.9-1.1); Partial Thromboplastin Ratio 1.7; Prothrombin Time 11.8 Seconds (9.0-12.0)
[2018-12-12 07:41] LABS: Partial Thromboplastin Time 45.6 Seconds (21.0-31.0)
[2018-12-12] MEDS: INSULIN ASPART 100 UNITS/ML 3 ML PEN SC SCH ×2 (08:00→13:07)
[2018-12-12] MEDS: ARTIFICIAL TEARS OP SCH (10:27)
[2018-12-12] MEDS: ASPIRIN 81 MG ECTAB PO SCH (10:28)
[2018-12-12] MEDS: CITALOPRAM 20 MG TAB PO SCH (10:28)
[2018-12-12] MEDS: DOCUSATE SODIUM/SENNA 50/8.6MG TAB PO SCH (10:29)
[2018-12-12] MEDS: PANTOprazole 40 MG TAB PO SCH (10:29)
[2018-12-12] MEDS: CARVEDILOL 3.125 MG TAB PO SCH (10:29)
[2018-12-12] MEDS: FOLIC ACID 1 MG TAB PO SCH (10:30)
[2018-12-12] MEDS ORDERED: HEPARIN IV BOLUS 3,000 UNITS in SYRINGE 0 ML IV ONE (10:30)
[2018-12-12] MEDS: ALLOPURINOL 100 MG TAB PO SCH (10:30)
[2018-12-12] MEDS: CEFDINIR 300 MG CAP PO SCH (10:30)
[2018-12-12] MEDS: INSULIN GLARGINE 100 UNIT/ML VIAL SC SCH (10:31)
--- NOTE | 2018-12-12 12:25 | Hospitalist Progress Note ---
Date of Service December 12, 2018 Assessment & Plan (1) Acute CVA (cerebrovascular accident): Brain MRI confirms acute to subacute bilateral romero radiata infarcts Previous right centrum ovale infarct noted Suggesting embolic phenomena Echo-normal LV chamber size with mild concentric LVH, normal LV systolic function EF of 55-60%, no segmental left ventricular wall motion abnormalities, grade 1 diastolic dysfunction and poorly visualized valvular structure without significant stenosis. Patient currently on aspirin, Plavix, atorvastatin Cardiology consulted-input appreciated Patient has paroxysmal atrial fibrillation Started on intravenous heparin and Coumadin will be started accordingly Remains stable and can be transferred to [facility] this afternoon DC Estes catheter We will discontinue heparin drip and continue with Coumadin (2) Paroxysmal A-fib: Management as noted above Coumadin was started (3) Altered mental status: possible multifactorial: New CVA, hypoglycemia, possible PNA and UTI Management of CVA noted above Possible PNA IMPRESSION: Apparent hazy left basilar opacity with a possible small left pleural effusion. Artifact is favored however a pleural effusion with atelectasis/consolidation could appear similar. Remains afebrile No leukocytosis Blood cultures negative Patient denies coughing, shortness of breath We will continue antibiotic for total of 7 days No respiratory symptoms Possible UTI Urine cultures negative If afebrile for next 24 hours discontinue antibiotics and observe Management of Hypoglycemia noted below (4) Hypoglycemia: Blood sugar was 40 at the long-term. Family reports variable oral intake, but apparently was continued with usual insulin dosing Insulin Sliding Scale for now Glycemic control consult placed-appreciate input (5) Hypotension: Blood pressure on arrival to ED was 85/47 and improved with fluid resuscitation. likely from volume depletion resolved Maintain blood pressure on the higher side in light of acute CVA Blood pressure is controlled (6) Cerebrovascular disease: Management per #1 (7) CAD (coronary artery disease): Serum troponin normal. continue Carvedilol, ASA, and Plavix is stopped (8) Diabetes mellitus type 2 with complications: Hypoglycemic on admission day as discussed above. Hgb A1C 7.4 on 11/26. PO intake has been variable. Follow BSG's. Titrate insulin therapy. (9) Dementia: May have Alzheimer's disease, vascular dementia, or a combination of the two. Monitor for delirium. (10) Decubitus ulcer: Present on admission. Local care. Reposition. Consult Wound Care Nursing. (11) Do not resuscitate status: Per previous discussions. (12) DVT prophylaxis: SQ heparin. (13) Discharge planning issues: Anticipated return to [facility]. Likely to go back [facility] today Subjective 12/11 The patient was seen and examined the medical telemetry unit She was admitted with change in mental status and acute CVA Has been feeling increasingly better this morning At baseline he she has been mostly bedbound She denies any symptoms today 12/12 Patient is seen and examined in medical telemetry She has been stable in the bed Denies any symptoms except generalized weakness She has been bedbound Physical Exam Vital Signs (Past 24 Hours): Last Vital Signs Temp 37.1 C 12/12/18 12:16 Pulse 80 12/12/18 12:16 Resp 18 12/12/18 12:16 BP 151/84 H 12/12/18 12:16 Pulse Ox 96 12/12/18 12:16 Physical Exam: No apparent distress at bed Constitutional: WD/WN, vitals as above no acute distress Eyes: PERRL, conjunctivae normal, anicteric sclerae ENMT: external ear and nose normal, oropharynx normal Neck: trachea midline, no thyromegaly Respiratory: normal respiratory effort, lungs clear to auscultation Auscultation: + diminished lung sounds and + rhonchi (few) Cardiovascular: Rate/Rhythm: regular rate Heart Sounds: no gallop, no murmur and no cardiac rub Vessels: no JVD Extremities: normal capillary refill and + edema (trace pretibial); no calf tenderness Gastrointestinal (Abdomen): normal bowel sounds, soft, nontender, no hepatosplenomegaly Musculoskeletal: Head/Neck/Chest: neck supple Extremities: + abnormal strength (patient unable to follow commands; recent left hemiparesis), no cyanosis and no clubbing Skin: no rashes, warm and dry no erythema and no pallor Psychiatric: Orientation: + not alert and + not oriented x 3 Affect: euthymic affect Lymphatic: no cervical lymphadenopathy Results & Data Laboratory Results Short CBC 12/12/18 Range/Units 06:59 WBC 10.57 (4.8-10.8) K/uL Hgb 13.7 (12.0-16.0) g/dL Hct 40.3 (37-47) % Plt Count 192 (130-400) K/uL BMP 12/12/18 06:59 Creatinine 0.57 L Medications Administered Current Inpatient Medications Allopurinol (Zyloprim) 200 mg PO QAM [facility] Stop: 01/09/19 08:59 Last Admin: 12/12/18 10:30 Dose: 200 mg Documented by: Artificial Tears (Artificial Tears) 1 drops OP TID [facility] Stop: 01/08/19 08:59 Last Admin: 12/12/18 10:27 Dose: 1 drops Documented by: Aspirin (Ecotrin Ectab) 162 mg PO QAM [facility] Stop: 01/09/19 08:59 Last Admin: 12/12/18 10:28 Dose: 162 mg Documented by: Atorvastatin Calcium (Lipitor) 40 mg PO HS [facility] Stop: 01/08/19 20:59 Last Admin: 12/11/18 20:49 Dose: 40 mg Documented by: Carvedilol (Coreg) 3.125 mg PO BID [facility] Stop: 01/08/19 20:59 Last Admin: 12/12/18 10:29 Dose: 3.125 mg Documented by: Cefdinir (Omnicef) 300 mg PO BID [facility] Stop: 12/15/18 20:59 Last Admin: 12/12/18 10:30 Dose: 300 mg Documented by: Citalopram Hydrobromide (Celexa) 20 mg PO QAM [facility] Stop: 01/08/19 12:14 Last Admin: 12/12/18 10:28 Dose: 20 mg Documented by: Dextrose (Dextrose 50%) 25 - 50 ml IV UD PRN; Protocol PRN Reason: Hypoglycemia Protocol Stop: 01/07/19 23:14 Last Admin: 12/08/18 23:36 Dose: 25 ml Documented by: [facility]vite) [facility] Stop: 01/09/19 08:59 Last Admin: 12/12/18 10:30 Dose: 1 mg Documented by: Glucagon (Glucagen) 1 mg IM UD PRN; Protocol PRN Reason: Hypoglycemia Protocol Stop: 01/07/19 23:14 Glucose (Glucose 40%) 15 - 30 gm PO UD PRN; Protocol PRN Reason: Hypoglycemia Protocol Stop: 01/07/19 23:14 Glucose (Dex4 Glucose) 4 - 8 tabs PO UD PRN; Protocol PRN Reason: Hypoglycemia Protocol Stop: 01/07/19 23:14 Heparin Sodium/Dextrose (Heparin Sodium/Dextrose) 25,000 units in 500 mls @ 20 mls/hr IV .Q24H [facility]; Protocol Stop: 01/09/19 11:14 Last Titration: 12/12/18 10:32 Dose: 1,000 units/hr, 20 mls/hr Documented by: Insulin Aspart (Novolog Flexpen) 0 units SC ACHS [facility]; Protocol Stop: 01/08/19 16:29 Last Admin: 12/12/18 08:00 Dose: Not Given Documented by: Insulin Glargine (Lantus) 32 units SC BID [facility]; Protocol Stop: 01/10/19 08:59 Last Admin: 12/12/18 10:31 Dose: 32 units Documented by: Miscellaneous (Carbohydrates For Hypoglycemia) 15 - 30 gm PO UD PRN PRN Reason: Hypoglycemia Treatment Stop: 01/07/19 23:14 Miscellaneous Information (Consult Glycemic Management Pharmacy) 1 ea N/A UD [facility] Stop: 01/09/19 10:07 Pantoprazole Sodium (Protonix) 40 mg PO QAM [facility] Stop: 01/09/19 08:59 Last Admin: 12/12/18 10:29 Dose: 40 mg Documented by: Senna/Docusate Sodium (Senokot S) 2 tab PO BID [facility] Stop: 01/08/19 20:59 Last Admin: 12/12/18 10:29 Dose: 2 tab Documented by: Warfarin Sodium (Coumadin) 5 mg PO DAILY@1600 [facility] Stop: 01/10/19 15:59 Last Admin: 12/11/18 16:01 Dose: 5 mg Documented by: (1) CAD (coronary artery disease) Coronary Disease-Associated Artery/Lesion type: [place] artery [place] vs. transplanted heart: [place] heart Associated angina: without angina Qualified Code(s): I25.10 - Atherosclerotic heart disease of [place] coronary artery without angina pectoris (2) Dementia Dementia type: unspecified type Dementia behavioral disturbance: without behavioral disturbance Qualified Code(s): F03.90 - Unspecified dementia without behavioral disturbance
--- NOTE | 2018-12-13 07:28 | Discharge Summary ---
Date of Service December 13, 2018 Admission HPI Per Admitting Provider 73-year-old female followed by Dr. Miguel at [facility]. History of ischemic heart disease, cerebrovascular disease, diabetes, dementia, and other problems as noted. Hospitalized at [facility] on 11/26/18 with an ischemic stroke involving the right centrum semiovale. She had a persistent left hemiparesis that was fairly dense. Evaluated by PT, OT, speech therapy. Oral intake was deemed to be safe as long as patient was alert and aspiration precautions were followed. Continuation of antiplatelet therapy with aspirin and clopidogrel recommended. Treated for E coli UTI with intravenous ceftriaxone. Returned to [facility] on 11/29/18. Experienced some vomiting last week. Upper GI series was performed on 12/05/18 and demonstrated severe gastroesophageal reflux and a small hiatal hernia. Daughter reports that oral intake has been fairly good with assistance, but sometimes she does not complete her meals. Her left-sided weakness has improved since returning to the long term. Daughter visited this morning and patient seemed to be doing relatively well. Noted to be confused around 1500 this afternoon. Blood sugar was found to be 40. She received glucagon. Transported to ED by EMS. Patient unable to provide any additional history because of her dementia and acute illness. Admission Exam Per Admitting Provider Vital Signs (Past 24 Hours): Last Vital Signs Temp 34.3 C L 12/08/18 18:30 Pulse 63 12/08/18 19:28 Resp 20 12/08/18 19:28 BP 114/43 L 12/08/18 19:28 Pulse Ox 100 12/08/18 19:28 Constitutional: WD/WN, vitals as above no acute distress Eyes: PERRL, conjunctivae normal, anicteric sclerae ENMT: external ear and nose normal, oropharynx normal Neck: trachea midline, no thyromegaly Respiratory: no respiratory distress and no labored breathing Auscultation: + rhonchi (few) Cardiovascular: Rate/Rhythm: regular rate Heart Sounds: no gallop, no murmur and no cardiac rub Vessels: no JVD Extremities: normal capillary refill and + edema (trace pretibial); no calf tenderness Gastrointestinal (Abdomen): normal bowel sounds, soft, nontender, no hepatosplenomegaly Musculoskeletal: Head/Neck/Chest: neck supple Extremities: + abnormal strength (patient unable to follow commands; recent left hemiparesis), no cyanosis and no clubbing Skin: no rashes, warm and dry no erythema and no pallor Neurologic: minimally responsive PERRL left facial palsy unable to follow commands for assessment of motor strength patellar DTR's 1/2 blat left plantar reflex equivocally upgoing Psychiatric: Orientation: + not alert and + not oriented x 3 Lymphatic: no cervical lymphadenopathy Principal Diagnosis Acute to subacute bilateral romero radiata infarcts, hypoglycemia-corrected, paroxysmal atrial fibrillation, pneumonia Discharge Exam Constitutional WD/WN, vitals as above no acute distress Eyes PERRL, conjunctivae normal, anicteric sclerae ENMT external ear and nose normal, oropharynx normal Neck trachea midline, no thyromegaly Respiratory normal respiratory effort, lungs clear to auscultation Auscultation: + diminished lung sounds and + rhonchi (few) Cardiovascular Rate/Rhythm: regular rate Heart Sounds: no gallop, no murmur and no cardiac rub Vessels: no JVD Extremities: normal capillary refill and + edema (trace pretibial); no calf tenderness Gastrointestinal (Abdomen) normal bowel sounds, soft, nontender, no hepatosplenomegaly Musculoskeletal Head/Neck/Chest: neck supple Extremities: + abnormal strength (patient unable to follow commands; recent left hemiparesis), no cyanosis and no clubbing Skin no rashes, warm and dry no erythema and no pallor Psychiatric Orientation: + not alert and + not oriented x 3 Affect: euthymic affect Lymphatic no cervical lymphadenopathy Discharge Data Allergies Allergy/AdvReac Type Severity Reaction Status Date / Time etodolac Allergy Unknown . Verified 12/08/18 18:19 tolmetin Allergy Unknown . Verified 12/08/18 18:19 adhesive Allergy Unknown Unverified 12/08/18 18:19 ciprofloxacin [From Cipro] Allergy Unknown Unverified 12/08/18 18:19 iodine Allergy Unknown Unverified 12/08/18 18:19 Consultations 12/08/18 19:36 ED Decision to Admit Stat 12/08/18 23:31 Consult Case Management - Discharge Planning Routine 12/09/18 07:00 Consult Neurology Routine 12/10/18 10:37 Consult Cardiology Routine Ordered Studies 12/08/18 17:17 CT head/brain wo con Stat 12/09/18 10:09 MR brain wo con Routine Hospital Course (1) Acute CVA (cerebrovascular accident): Brain MRI confirms acute to subacute bilateral romero radiata infarcts Previous right centrum ovale infarct noted Suggesting embolic phenomena Echo-normal LV chamber size with mild concentric LVH, normal LV systolic function EF of 55-60%, no segmental left ventricular wall motion abnormalities, grade 1 diastolic dysfunction and poorly visualized valvular structure without significant stenosis. Patient currently on aspirin, Plavix, atorvastatin Cardiology consulted-input appreciated Patient has paroxysmal atrial fibrillation Started on intravenous heparin and Coumadin will be started accordingly Remains stable and can be transferred to [facility] this afternoon DC Estes catheter We will discontinue heparin drip and continue with Coumadin (2) Paroxysmal A-fib: Management as noted above Coumadin was started (3) Altered mental status: possible multifactorial: New CVA, hypoglycemia, possible PNA and UTI Management of CVA noted above Possible PNA IMPRESSION: Apparent hazy left basilar opacity with a possible small left pleural effusion. Artifact is favored however a pleural effusion with atelectasis/consolidation could appear similar. Remains afebrile No leukocytosis Blood cultures negative Patient denies coughing, shortness of breath We will continue antibiotic for total of 7 days No respiratory symptoms Possible UTI Urine cultures negative If afebrile for next 24 hours discontinue antibiotics and observe Management of Hypoglycemia noted below (4) Hypoglycemia: Blood sugar was 40 at the long term. Family reports variable oral intake, but apparently was continued with usual insulin dosing Insulin Sliding Scale for now Glycemic control consult placed-appreciate input (5) Hypotension: Blood pressure on arrival to ED was 85/47 and improved with fluid resuscitation. likely from volume depletion resolved Maintain blood pressure on the higher side in light of acute CVA Blood pressure is controlled (6) Cerebrovascular disease: Management per #1 (7) CAD (coronary artery disease): Serum troponin normal. continue Carvedilol, ASA, and Plavix is stopped (8) Diabetes mellitus type 2 with complications: Hypoglycemic on admission day as discussed above. Hgb A1C 7.4 on 11/26. PO intake has been variable. Follow BSG's. Titrate insulin therapy. (9) Dementia: May have Alzheimer's disease, vascular dementia, or a combination of the two. Monitor for delirium. (10) Decubitus ulcer: Present on admission. Local care. Reposition. Consult Wound Care Nursing. (11) Do not resuscitate status: Per previous discussions. (12) DVT prophylaxis: SQ heparin. (13) Discharge planning issues: Anticipated return to [facility]. Likely to go back [facility] today Total Time Total Time Spent Total Time Spent (In Minutes): 35 Minutes Total Time Includes: Examination of the Patient, Discharge Planning, Medication Reconciliation and Communication With Other Providers Discharge Plan Discharge Items Patient Disposition: Transfer [facility] Reason For Visit: HYPOGLYCEMIA,POSSIBLE NEW STROKE,POSSIBLE SEPSIS Discharge Diagnosis: Acute to subacute bilateral romero radiata infarcts, hypoglycemia-corrected, paroxysmal atrial fibrillation, pneumonia Condition: Fair Discharge Goals: Decrease discomfort and Improve function Activity: Resume your previous activity Non-emergency contact: Primary Care Provider Call non-emergency contact if: you have any medication questions and your symptoms worsen Follow-up/Referrals: Kyler Miguel MD [Primary Care Provider] - (Please make an appointment with your primary care physician in 1 week) Diet: Carb Consistent or DM2 and Heart Healthy Diet Texture: Dental soft (bite-sized) Addtl Provider Instructions: Risk Factors for Stroke: You can reduce your chances of stroke by working with your medical provider to adopt a healthy lifestyle. Some specific ways to lower your chance of stroke are: * If you are a smoker, now is the time to stop smoking cigarettes * If you are diabetic, improve the control of your blood sugars * Avoid excessive amounts of alcohol * Control high blood pressure * Lose weight if you are overweight * Be sure to lead an active lifestyle * Eat a healthy diet low in salt, cholesterol and fat You should know about other risk factors for stroke that you are unable to control. These include: * Age 55 years or older * Male gender * Certain racial groups: , or / * Family History of Stroke, Mini stroke or Heart Attack * Sickle Cell Disease Follow Up: It is important for you to keep your follow up appointments with your medical provider. Who to Call and When: Medical Emergencies: Call 911 immediately if you experience any of the followin g warning signs and symptoms of Stroke: * Sudden numbness or weakness of the face, arm or leg, especially on one side of the body * Sudden confusion, trouble speaking or understanding * Sudden trouble seeing in one or both eyes * Sudden trouble walking, dizziness, loss of balance or coordination * Sudden severe headache with no cause Do not delay calling 911 if you experience any warning signs or symptoms of a stroke. Delay in seeking medical attention may affect what treatments can be given to you. . Prescriptions: New warfarin [Coumadin] 5 mg Tablet 5 mg PO DAILY@1600 3 Days Qty: 30 RF: 0 cefdinir 300 mg Capsule 300 mg PO BID 3 Days Qty: 6 RF: 0 Lactinex 1 million cell tablet,chewable 1 tab PO BID Qty: 20 RF: 0 Continued multivitamin Tablet 1 tab PO QAM RF: 0 ascorbic acid (vitamin C) [Vitamin C] 1,000 mg Tablet 1,000 mg PO QAM RF: 0 sennosides-docusate sodium [Senna-S] 8.6-50 mg Tablet 2 tab PO BID RF: 0 dextrose [Glucose Gel] 40 % Gel 1 dose PO DIRECTED PRN (Reason: Unknown) RF: 0 allopurinol 100 mg Tablet 200 mg PO QAM RF: 0 acetaminophen [Tylenol Extra Strength] 500 mg Tablet 500 mg PO QID RF: 0 acetaminophen 500 mg Tablet 500 mg PO Q6H PRN (Reason: Pain) RF: 0 carvedilol [Coreg] 3.125 mg Tablet 3.125 mg PO BID RF: 0 methenamine hippurate 1 gram Tablet 1 g PO BIDM RF: 0 citalopram 20 mg Tablet 20 mg PO QAM RF: 0 magnesium hydroxide [Milk of Magnesia] 400 mg/5 mL Suspension 30 ml PO DAILY PRN (Reason: Constipation) RF: 0 bisacodyl [Dulcolax (bisacodyl)] 10 mg Suppository 10 mg TN DAILY PRN (Reason: Constipation) RF: 0 pantoprazole [Protonix] 40 mg Tablet,Delayed Release (Dr/Ec) 40 mg PO QAM RF: 0 promethazine 25 mg Tablet 25 mg PO Q6H PRN (Reason: nausea, vomiting) RF: 0 Fleet Enema 19-7 gram/118 mL Enema 118 ml TN DAILY PRN (Reason: Constipation) RF: 0 Glucagon Emergency Kit (human) 1 mg Recon Soln 1 dose subcut DIRECTED RF: 0 aspirin 81 mg Tablet,Chewable 162 mg PO QAM RF: 0 folic acid 1 mg Tablet 1 mg PO QAM RF: 0 cholecalciferol (vitamin D3) [Vitamin D3] 1,000 unit Tablet 1,000 unit PO QAM RF: 0 Refresh Celluvisc 1 % Dropperette,Gel 1 drp OPHTHALMIC (EYE) TID RF: 0 Calmoseptine 0.44-20.6 % Ointment 1 applic TOPICAL TID RF: 0 Calmoseptine 0.44-20.6 % Ointment 1 applic TOPICAL DAILY PRN (Reason: soiling) RF: 0 atorvastatin 40 mg Tablet 40 mg PO HS Qty: 30 RF: 5 Changed Lantus U-100 Insulin 100 unit/mL Solution 32 unit SUBCUT BID Qty: 0 RF: 0 Novolog U-100 Insulin aspart 100 unit/mL Solution 15 unit SUBCUT QPM Qty: 0 RF: 0 Novolog U-100 Insulin aspart 100 unit/mL Solution 20 unit SUBCUT BIDM Qty: 0 RF: 0 Discontinued lisinopril 20 mg Tablet 20 mg PO QAM RF: 0 clopidogrel [Plavix] 75 mg Tablet 75 mg PO QAM RF: 0 heparin (porcine) 5,000 unit/mL solution 5,000 units SQ Q12H Qty: 10 RF: 0 Stand-Alone Forms: [facility] Discharge Orders: Discharge Order (Routine); Ordered 12/12/18 Ordered By: Villa Douglas Skilled Items Patient informed of condition?: Yes DNR: Yes Discharge Level of Care: Skilled Communicable Disease: No Discharge Prognosis: Stable Admission Data Admit Date/Time: 12/08/18 19:48 Attending Provider: Villa Douglas Admit Provider: Jonas Devi Primary Care Provider: Kyler Miguel Other Providers: Jonas Devi ; Jonas Mclaughlin ; Al Bowen ; Kingsley Guillermo ; Bj Reddy ; Gulshan Melara ; RaadAlejandro gibson ; Brice Ascencio ; Gina Tuttle ; Poppy Caro ; Errol Dobson Service: Telemetry Medical Other Interventions: Discharge Summary Assessment (RN) Last Done: 12/12/18 15:10 DC Date/Time DO NOT enter until pt leaves facility: 12/12/18 15:43
== END 2018-12-12 15:43 | DRG 64 ==
LOC: ED 17:00 → SUATTDRO 19:48 → 2N 19:48